=== PATIENT | male | born 1955 | race Caucasian/White ===

== ENCOUNTER 2023-04-16 11:03 | Emergency (ER) | payer OTHER ==
[~2023-04-16] VITALS: Ht 162.6 cm; Wt 68.2 kg
[2023-04-16 11:29] VITALS: BP 143/89
[2023-04-16] MEDS ORDERED: LIDOCAINE 1% HCL (LOCAL ANESTH.) INJ 20ML MDV ID ONE (11:45)
[2023-04-16] MEDS ORDERED: NEOMYCIN-BACITRACIN-POLYM UNITDOSE PKG TOP OINT TOP ONE (12:45)
[2023-04-16] MEDS ORDERED: IBUP-1454 PO (14:05)
[2023-04-16] MEDS ORDERED: CEPH250C PO (14:05)
[2023-04-16] MEDS ORDERED: HYDR-4902 PO (14:05)
== END 2023-04-16 14:11 | disposition home or self-care (01) ==
LOC: EDUNIT# 11:03 → ER 11:03 → EDBD 11:03 → ER 14:10
DX: S01.81XA Laceration without foreign body of other part of head, initial encounter (principal); W01.198A Fall on same level from slipping, tripping and stumbling with subsequent striking against other object, initial encounter; Y93.89 Activity, other specified; Y92.89 Other specified places as the place of occurrence of the external cause; Y99.8 Other external cause status
CPT/HCPCS: 12013; 70450; 99284; J2001

== ENCOUNTER 2025-04-24 19:12 | Emergency (ER) | payer OTHER ==
[~2025-04-24] VITALS: Ht 152.4 cm; Wt 56.8 kg
[~2025-04-24 19:12] MED LIST: CEPH250C PO; HYDR-4902 PO; IBUP-1454 PO
--- NOTE | 2025-04-24 19:55 | ED.PDOC ---
Back pain HPI HPI Comments 70-YEAR-OLD MALE PRESENTS TO THE ED WITH HIS [id number] WHO HE LIVES WITH C/C OF BACK PAIN X 1 MONTH. PT HAS PMH OF SCOLIOSIS AND STATES THE PAIN IS PREVENTING HIM FROM DOING DAILY ACITIVTIES. PATIENT STATES HISTORY OF KIDNEY DISEASE UNABLE TO TAKE NSAIDS. DENIES RECENT INJURY, SADDLE ANESTHESIA, WEAKNESS, NUMBNESS OR LOSS OF BOWEL AND BLADDER CONTROL Chief Complaint: Back Pain Time Seen by MD: 19:20 Reviewed Notes: Nurses Notes, Medications, Allergies Allergies: Coded Allergies: NO KNOWN ALLERGIES (Unverified , 04/16/23) Home Meds Active Scripts Acetaminophen (Acetaminophen Extra Stren) 500 Mg Tab, 500 MG PO Q6HP PRN for 10 Days, #40 TAB Prov:PRICILA NEELY [employer]PERINTENDENT [employer]OTIVE 04/24/25 Methylprednisolone (Medrol Dosepak) 4 Mg Stan, 4 MG PO UD for 6 Days, #21 TAB UAD Prov:PRICILA NEELY [employer]PERINTENDENT [employer] 04/24/25 Hydrocodone-Acetaminophen (Hydrocodone Bitartrate/AC 5-325 mg) 1 Tab Tab, 1 TAB PO Q6HP PRN for 7 Days, #28 TAB Prov:SANTINO LOVELACE PAC 04/16/23 Ibuprofen (Ibuprofen) 600 Mg Tab, 1 TAB PO QID, #30 TAB Prov:SANTINO LOVELACE PAC 04/16/23 Cephalexin (KEFLEX CAPSULE) 250 Mg Cp, 1 CAP PO QID for 7 Days, #28 CAP Prov:SANTINO LOVELACE PAC 04/16/23 Information Source: Patient, Friend Past Medical History PAST MEDICAL HISTORY: Denies Surgical History: Denies all surgeries Family History Family History: Reviewed,noncontributory to illness, No family hx of Cancer, No family hx of DM, No family hx of Heart shayla, No family hx of HTN, No family hx ofKidney shayla, No family hx of Liver shayla, No family hx of Lung shayla, No family hx of Stroke Social History Smoker: Non-Smoker Alcohol: Denies ETOH Use Drugs: Denies Drug Use Constitutional: denies: chills, diaphoresis, fatigue, fever, malaise, sweats, weakness, others EENTM: denies: blurred vision, double vision, ear bleeding, ear discharge, ear drainage, ear pain, ear ringing, eye pain, eye redness, hearing loss, mouth pain, mouth swelling, nasal discharge, nose bleeding, nose congestion, nose pain, photophobia, tearing, throat pain, throat swelling, voice changes, others Respiratory: denies: cough, hemoptysis, orthopnea, SOB at rest, shortness of breath, SOB with excertion, stridor, wheezing, others Cardiovascular: denies: chest pain, dizzy spells, diaphoresis, Dyspnea on exertion, edema, irregular heart beat, left arm pain, lightheadedness, palpitations, PND, syncope, others Gastrointestinal: denies: abdomen distended, abdominal pain, blood streaked bowels, constipated, diarrhea, dysphagia, difficulty swallowing, hematemesis, melena, nausea, poor appetite, poor fluid intake, rectal bleeding, rectal pain, vomiting, others Genitourinary: denies: burning, dysuria, flank pain, frequency, hematuria, incontinence, penile discharge, penile sore, pain, testicle pain, testicle swelling, urgency, others Neurological: denies: dizziness, fainting, headache, left sided numbness, left sided weakness, numbness, paresthesia, pre-existing deficit, right sided numbness, right sided weakness, seizure, speech problems, tingling, tremors, weakness, others Musculoskeletal: reports: back pain; denies: gout, joint pain, joint swelling, muscle pain, muscle stiffness, neck pain, others Integumetry: denies: bruises, change in color, change in hair/nails, dryness, laceration, lesions, lumps, rash, wounds, others Allergic/Immunocompromised: denies: Difficulty Healing, Frequent Infections, Hives, Itching, others Hematologic/Lymphatic: denies: anemia, blood clots, easy bleeding, easy bruising, swollen glands, others Endocrine: denies: excessive hunger, excessive sweating, excessive thirst, excessive urination, flushing, intolerance to cold, intolerance to heat, unexplained weight gain, unexplained weight loss, others Psychiatric: denies: anxiety, bipolar disorder, depression, hopeless, panic disorder, schizophrenia, sleepless, suicidal, others Physical Exam General Appearance: No Apparent Distress, Normal HEENT: Pharynx Normal, TMs Normal Neck: Full Range of Motion, Non-Tender Respiratory: Lungs Clear, No Respiratory Distress, Normal Breath Sounds Cardiovascular: No Murmur, Normal Peripheral Pulses, Regular Rate/Rhythm Breast Exam: Deferred Gastrointestinal: Non Tender, Soft Genitalia: Deferred Pelvic: Deferred Rectal: Deferred Extremities: Normal capillary refill, Normal inspection, Normal range of motion, Non-tender, No pedal edema Musculoskeletal : Location: Bilateral Extremity Location: Back (Moderate thoracic lumbar curvature noted scoliosis moderate tenderness bilateral lower back musculature. Negative straight leg raise bilateral strength sensory motion intact positive pedal pulses noted external obvious trauma) Apperance: Normal Neurologic: Alert, No Motor Deficits, Normal Affect, Normal Mood, No Sensory Deficits Cerebellar Function: Normal Reflexes: Normal Skin: Dry, Normal Color, Warm Lymphatic: No Adenopathy Was a procedure done? Was a procedure done?: No Back Pain Differential Dx Differential Diagnosis: Fracture, Musculoskeletal Pain X-Ray, Labs, Meds, VS Vital Signs Date Time Temp Pulse Resp B/P (MAP) Pulse Ox O2 Delivery O2 Flow Rate FiO2 04/24/25 19:30 97.3 89 18 90/55 (67) 100 97.3 X-Ray, Labs, Meds, VS Comment Patient given Decadron 10 mg IM and [place] 5 mg p.o. reports improvement in pain and function requesting discharge at this time. Script trial of Tylenol and Medrol Dosepak advised to take medications as prescribed side effects discussed. Advised to follow up with his PCP in 2 days consider referral for pain management for his chronic scoliosis. ER return precautions given patient indicates understanding and agrees with discharge plan of care. Time of 1ST Reevaluation: 19:20 Reevaluation 1ST: Unchanged Time of 2ND Reevaluation: 21:31 Reevaluation 2ND: Improved Patient Education/Counseling: Diagnosis, Treatment, Prognosis, Need For Follow Up Family Education/Counseling: Diagnosis, Treatment, Prognosis, Need For Follow Up SEPSIS Sepsis Screen Vital Signs Date Time Temp Pulse Resp B/P (MAP) Pulse Ox O2 Delivery O2 Flow Rate FiO2 04/24/25 19:30 97.3 89 18 90/55 (67) 100 97.3 Departure 1 Departure Time of Disposition: 20:45 Impression: Primary Impression: Lumbar sprain Qualified Codes: S33.5XXA - Sprain of ligaments of lumbar spine, initial encounter Additional Impression: Scoliosis Qualified Codes: M41.9 - Scoliosis, unspecified Disposition: 01 HOME / SELF CARE / HOMELESS Condition: Stable e-Prescriptions Acetaminophen (Acetaminophen Extra Stren) 500 Mg Tab 500 MG PO Q6HP PRN for 10 Days, #40 TAB Prov: PRICILA NEELY 04/24/25 Methylprednisolone (Medrol Dosepak) 4 Mg Stan 4 MG PO UD for 6 Days, #21 TAB UAD Prov: PRICILA NEELY 04/24/25 Discharged With: Friend Critical Care Note Critical Care Time?: No Stability Stability form required: No PRICILA NEELY Apr 24, 2025 19:55
[2025-04-24] MEDS ORDERED: METH4PAK PO (20:47)
[2025-04-24] MEDS ORDERED: ACET-6 PO (20:47)
[2025-04-24] MEDS: HYDROcodone-ACET 5/325MG TAB PO ONE (21:40)
[2025-04-24 21:45] VITALS: BP 94/57; PULSE 78; RESP 14; TEMP 96.9; O2SAT 100
== END 2025-04-24 21:50 | disposition home or self-care (01) ==
LOC: ER 19:12
DX: S33.5XXA Sprain of ligaments of lumbar spine, initial encounter (principal); M41.9 Scoliosis, unspecified; X58.XXXA Exposure to other specified factors, initial encounter; Y93.89 Activity, other specified; Y92.89 Other specified places as the place of occurrence of the external cause; Y99.8 Other external cause status
CPT/HCPCS: 96372; 99283; J1100

== ENCOUNTER 2025-04-29 17:54 | Inpatient (IN) | payer OTHER ==
[~2025-04-29] VITALS: Ht 162.6 cm; Wt 68.0 kg
[~2025-04-29 17:54] MED LIST changes: +ACET-6 PO; +METH4PAK PO
--- NOTE | 2025-04-29 19:08 | ED.PDOC ---
History of Present Illness HPI Comments HPI: 70 year old male brought in by brother in law presents to the ED with a chief complaint of generalized weakness onset 2 months. Brother in law states patient has been weak for the past 2 months, noticed cognitive decline. Brother in law also states patient is only taking pain medication, has a PMHx sclerosis. Last night patient was having a conversation with brother in law, increased concern for possible suicide. Patient and brother in law are poor historians. No other symptoms or modifying factors present at this time. Initial Vitals BP: 107/70 HR: 125 RR: 16 O2: 975 Temp: 97.9F Past Medical History:sclerosis Past Surgical History: Denies Social History: Denies ETOH, smoking, and drug use. Medications: pain medication Allergies: NKDA HPI: Poor Historian. REVIEW OF SYSTEMS: CONSTITUTIONAL: Denies acute: fever, diaphoresis, chills, HEAD: Denies acute: headache, photophobia Eyes: Denies acute: Double vision, vision loss, eye pain, eye discharge. EARS: Denies acute: tinnitus, hearing loss, ear discharge, ear pain, THROAT: Denies acute: sore throat, swelling, difficulty swallowing , pain with swallowing, change in voice. NECK: Denies acute: neck pain, neck swelling, stiff neck. HEART: Denies acute : chest pain, palpitations, LUNGS: Denies acute: SOB, wheezing, cough, hemoptysis ABDOMEN: Denies acute: abdominal pain, Nausea, Vomiting, diarrhea, melena , hematemesis, hematochezia SKIN: Denies acute: rash, redness, lesions, itchiness. EXTREMITIES: Denies acute: calf pain, numbness, tingling, weakness, denies pain in extremity. Denies acute: Low back pain. Neuro: Denies acute: focal neurological deficit, motor or sensory focal neurological deficit, tremors, seizure like activity, confusion, dizziness, change in mental status, loss of bowel or bladder function, cauda equina like symptoms. : Denies acute: dysuria, hematuria, flank pain, increase in urinary frequency. PSYCH: Denies acute: hallucination, suicidal ideation, homicidal ideation. PHYSICAL EXAM: General: ----no----acute distress, awake and alert. Head: normocephalic, atraumatic. Neck: supple, trachea is midline, no swelling. Throat: Normal phonation. Dry oral mucosa Eyes:, no erythema, no purulent discharge, no proptosis, no icterus. Heart: regular tachycardic, no significant murmur appreciated. Lungs: no apparent respiratory distress, No wheezing, no rhonchi, no crackles. No stridors Clear to auscultation bilaterally. Abdomen: non tender to palpation, non distended, soft, no guarding, no rebound, + bowel sounds. Neuro: Awake, Alert, oriented to name, self, situation, follows commands Speech is normal. Skin: no petechia, no purpura, no cyanosis, slight-pale, not jaundice. Lower extremities: --no - Pitting edema no deformity, no focal swelling, no calf TTP. Makes eye contact. moves all four extremities. Face: no apparent facial droop. ED COURSE: DISCLAIMER: This medical document was created using an electronic medical record system with voice recognition software and computerized dictation system. Although this document has been carefully reviewed, there might still be some phonetic and typographical errors. Occasional wrong-word or "sound-alike" substitutions may have occurred due to the inherent limitations of voice recognition software. These areas are purely typographical due to imperfections of the software programs and do not reflect any compromise in the patient's medical care. Please read the chart carefully and recognize, using context, where these substitutions have occurred. Chief Complaint: General Weakness Time Seen by MD: 18:30 Primary Care Provider: RENATA Reviewed Notes: Medications, Allergies Allergies: Coded Allergies: NO KNOWN ALLERGIES (Unverified , 04/16/23) Home Meds Active Scripts Levetiracetam (KEPPRA TABLET) 500 Mg Tb, 500 MG PO BID for 30 Days, #60 TAB Prov:ANEESH SÁNCHEZ MD 05/07/25 Atorvastatin Calcium (Lipitor) 40 Mg Tab, 1 TAB PO QPM, #90 TAB 1 Refill Prov:ANEESH SÁNCHEZ MD 05/07/25 Aspirin (Aspir-Low) 81 Mg Tab, 81 MG PO DAILY for 30 Days, #30 TAB Prov:ANEESH SÁNCHEZ MD 05/07/25 Clindamycin Hcl (Clindamycin Hcl) 300 Mg Cap, 1 CAP PO TID, #30 CAP Prov:ANEESH SÁNCHEZ MD 05/07/25 Hydrocodone-Acetaminophen (Hydrocodone Bitartrate/AC 5-325 mg) 1 Tab Tab, 1 TAB PO Q6HP PRN for 7 Days, #28 TAB Prov:SANTINO LOVELACE PAC 04/16/23 Discontinued Scripts Ibuprofen (Ibuprofen) 600 Mg Tab, 1 TAB PO QID, #30 TAB Prov:SANTINO LOVELACE PAC 04/16/23 Cephalexin (KEFLEX CAPSULE) 250 Mg Cp, 1 CAP PO QID for 7 Days, #28 CAP Prov:SANTINO LOVELACE PAC 04/16/23 Acetaminophen (Acetaminophen Extra Stren) 500 Mg Tab, 500 MG PO Q6HP PRN for 10 Days, #40 TAB Prov:PRICILA NEELY 04/24/25 Information Source: Patient, Relative Mode of Arrival: Wheelchair Severity: Moderate Timing: Months Duration: Since onset Prehospital treatment: Pain Meds Past Medical History Past Medical History (Other): MS Surgical History: Denies all surgeries Family History Family History: Reviewed,noncontributory to illness, No family hx of Cancer, No family hx of DM, No family hx of Heart shayla, No family hx of HTN, No family hx ofKidney shayla, No family hx of Liver shayla, No family hx of Lung shayla, No family hx of Stroke Social History Smoker: Non-Smoker Alcohol: Denies ETOH Use Drugs: Denies Drug Use Lives In: Home Was a procedure done? Was a procedure done?: No Differential Dx Considerations may include: Includes but not limited to thyroid disease, encephalopathy, electrolyte abnormality, sepsis, infection, intracranial pathology, drug adverse effects, arrhythmia, kidney insufficiency, ACS, CVA, malignancy, anemia X-Ray, Labs, Meds, VS Vital Signs Date Time Temp Pulse Resp B/P (MAP) Pulse Ox O2 Delivery O2 Flow Rate FiO2 04/29/25 18:20 97.9 125 16 107/70 (82) 97 97.9 Lab Test 04/29/25 21:02 04/29/25 20:29 04/29/25 19:25 04/29/25 18:18 Range/Units Blood Gas Specimen Type Arterial Blood Gas Sample Site Left radial Blood Gas Patient Temperature 37.0 Arterial Blood Date Drawn Arterial Blood pH 7.237 *L 7.350-7.450 Arterial Blood Partial Pressure CO2 17.7 *L 35.0-48.0 mmHg Arterial Blood Partial Pressure O2 93.2 83.0-108.0 mmHg Arterial Blood HCO3 7.4 L 21.0-28.0 mmol/L Arterial Blood Oxygen Saturation 95.1 94.0-98.0 % Arterial Blood Base Excess -18.2 L -2.0-3.0 mmol/L Arterial Blood Oxyhemoglobin 94.0 94.0-98.0 % Arterial Blood Carboxyhemoglobin 1.0 0.5-1.5 % Arterial Blood Methemoglobin 0.2 0.0-1.5 % Forest Test Yes Blood Gas Total Hemoglobin 8.30 L 13.5-17.5 g/dL Blood Gas Modality Room air Blood Gas Spontaneous Rate 24 FiO2 % 21.0 Blood Gas Critical Value Read Back Yes Blood Gas Notified Whom fernando Turk md Blood Gas Notified Time Blood Gas Notified By Troponin I High Sensitivity 32 36 </=54 ng/L White Blood Count 11.3 H 4.4-10.8 10^3/uL Red Blood Count 2.71 L 4.5-5.90 10^6/uL Hemoglobin 8.1 L 13.5-17.5 g/dL Hematocrit 24.1 L 41.0-53.0 % Mean Corpuscular Volume 89.0 80.0-100.0 fL Mean Corpuscular Hemoglobin 30.0 28.0-32.0 pg Mean Corpuscular Hemoglobin Concent 33.7 32.0-36.0 g/dL Red Cell Distribution Width 14.0 11.8-14.3 % Platelet Count 155 140-450 10^3/uL Mean Platelet Volume 10.2 6.9-10.8 fL Neutrophils (%) (Auto) 87.9 H 37.0-80.0 % Lymphocytes (%) (Auto) 6.1 L 10.0-50.0 % Monocytes (%) (Auto) 4.7 0.0-12.0 % Eosinophils (%) (Auto) 1.0 0.0-7.0 % Basophils (%) (Auto) 0.3 0.0-2.0 % Neutrophils # (Auto) 10.0 H 1.6-8.6 10 ^3/uL Lymphocytes # (Auto) 0.7 0.4-5.4 10 ^3/uL Monocytes # (Auto) 0.5 0-1.3 10 ^3/uL Eosinophils # (Auto) 0.1 0-0.8 10 ^3/uL Basophils # (Auto) 0 0-0.2 10 ^3/uL Nucleated Red Blood Cells 0.0 % Prothrombin Time 10.9 9.3-11.8 sec Prothrombin Time INR 1.03 0.9-1.15 Sodium Level 139 136-145 mmol/L Potassium Level 4.2 3.5-5.1 mmol/L Chloride Level 106 98-107 mmol/L Carbon Dioxide Level < 10 *L 20-31 mmol/L Anion Gap 23.25081 H 5-15 Blood Urea Nitrogen 157 *H 9-23 mg/dL Creatinine 12.33 *H 0.700-1.30 mg/dL Glomerular Filtration Rate Calc 4 >90 mL/min BUN/Creatinine Ratio 12.7 10.0-20.0 Serum Glucose 108 H 74-106 mg/dL Lactic Acid Level 1.1 0.4-2.0 mmol/L Calcium Level 5.5 *L 8.7-10.4 mg/dL Magnesium Level 1.3 L 1.6-2.6 mg/dL Total Bilirubin 0.2 0.2-1.0 mg/dL Aspartate Amino Transferase (AST) 15 13-40 U/L Alanine Aminotransferase (ALT) < 9 7-40 U/L Alkaline Phosphatase 63 46-116 U/L Total Protein 6.9 5.7-8.2 g/dL Albumin 4.5 3.2-4.8 g/dL Lipase 379 H 12-53 U/L Plasma/Serum Blood Alcohol < 3.0 <10 mg/dL Urine Color Colorless Yellow Urine Clarity Turbid H Clear Urine pH 5.5 5.0-9.0 Urine Specific [place] 1.012 1.001-1.035 Urine Protein 1+ H Negative Urine Ketones Negative Negative Urine Blood 1+ H Negative /uL Urine Nitrite Negative Negative Urine Bilirubin Negative Negative Urine Urobilinogen Normal Negative mg/dL Urine Leukocyte Esterase Negative Negative /uL Urine RBC 1 0 - 3 /hpf Urine WBC Clumps Present None Seen /hpf Urine Microscopic WBC 10 H 0-3 /HPF Urine Squamous Epithelial Cells Few <5 /hpf Urine Amorphous Crystals Mod None Seen /hpf Urine Bacteria Few H None Seen /hpf Urine Glucose Normal Normal mg/dL Test 04/29/25 18:16 Range/Units POC Glucose 120 H 70-106 mg/dl [facility] [id number] [facility] [id number] Ph: [phone] DIAGNOSTIC IMAGING Diagnostic Imaging Report : [id number] Signed PATIENT: ALEXANDRU HICKS ACCT: [id number] UNIT: [id number] : 1955 LOC: ER ROOM / BED: / AGE / SEX: 70 / M ADM STATUS: REG ER SERVICE 00 ORDERING PHYSICIAN: ANNE BARKSDALE DO PROCEDURE(s): CXRP - CHEST PORTABLE REASON: weak ORDER NUMBER(s): [id number], ACCESSION NUMBER(s): [id number] CHEST RADIOGRAPH Indication: weak Technique: Single frontal view of the chest was obtained Comparison: None FINDINGS: Lines and Tubes: None Lungs: Perihilar vascular prominence may be due to the scoliosis. There are no prior studies for comparison Pleura: No effusion. No pneumothorax. Cardiomediastinal contours: Cardiac size appears normal Bones: Severe dextroscoliosis of the thoracic spine IMPRESSION: 1. Prominent right perihilar markings. This maybe secondary to the severe scoliosis. There are no prior studies for comparison. ATED BY: ANTHONY ROBERTSON Jr., DO DICTATED DATE/TIME: 04/29/252026 SIGNED BY: ANTHONY ROBERTSON Jr., SIGNED DATE/TIME: 04/29/252026 CC: Time of 1ST Reevaluation: 20:56 (The case was discussed with the admitting team (HPI, physical exam, labs and diagnostic tests that were available at the time of disposition, ED course, treatment plan) on the phone. They agreed to admit the patient to their service and assume care of this patient from this point forward. --- timi) Reevaluation 1ST: N/A Patient Education/Counseling: Other Family Education/Counseling: Other Comments MDM: patient presented with the above HPI.--generalized weakness----workup was initiated. patient was found with the above mentioned diagnosis. the following medications were ordered: please refer to order lists of meds and tests obtained by myself Dr. Barksdale. Patient ED course and VS have been stabilized. Patient has been reassessed in the ED and remained in a stable condition. Patient has been observed in the ED adequate length of time to insure improvement/stability. Escalation of care considered: Consideration of escalation to observation or admission Nephrology was consulted, calcium replacement, magnesium replacement, social service manager were consulted, tele psych was consulted. Patient was ADMITTED to the medicine team for further evaluation and treatment of their presentation. All the reports of any imaging studies that were ordered by myself were reviewed by myself. Departure 1 Departure Time of Disposition: 19:56 Impression: Primary Impression: Symptomatic anemia Additional Impressions: Generalized weakness Acute renal failure Qualified Codes: N17.9 - Acute kidney failure, unspecified Hypomagnesemia Hypocalcemia Sinus tachycardia Disposition: ADMITTED INPATIENT Admit to: Tele Condition: Guarded e-Prescriptions Levetiracetam (KEPPRA TABLET) 500 Mg Tb 500 MG PO BID for 30 Days, #60 TAB Prov: ANEESH SÁNCHEZ MD 05/07/25 Atorvastatin Calcium (Lipitor) 40 Mg Tab 1 TAB PO QPM, #90 TAB 1 Refill Prov: ANEESH SÁNCHEZ MD 05/07/25 Aspirin (Aspir-Low) 81 Mg Tab 81 MG PO DAILY for 30 Days, #30 TAB Prov: ANEESH SÁNCHEZ MD 05/07/25 Clindamycin Hcl (Clindamycin Hcl) 300 Mg Cap 1 CAP PO TID, #30 CAP Prov: ANEESH SÁNCHEZ MD 05/07/25 Discharged With: Self Critical Care Note Critical Care Time?: Yes (1 hr-critical care time only) Heart Score Heart Score: Heart Score Response (Comments) Value History N/A 0 EKG N/A 0 Age N/A 0 Risk Factors N/A 0 Troponin N/A 0 Total 0 I personally scribed for ANNE BARKSDALE DO ([email or web address]) on 04/29/25 at 19:08. Electronically submitted by Kellen Toledo ([email or web address]). I personally scribed for ANNE BARKSDALE DO ([email or web address]) on 04/29/25 at 20:35. Electronically submitted by Kellen Toledo ([email or web address]). I personally scribed for ANNE BARKSDALE DO ([email or web address]) on 04/29/25 at 21:50. Electronically submitted by Kellen Toledo ([email or web address]). ANNE BARKSDALE DO Apr 29, 2025 19:08
[2025-04-29 19:45] LABS: Hematocrit 24.1 % (41.0-53.0); Hemoglobin 8.1 g/dL (13.5-17.5); Mean Corpuscular Hemoglobin 30.0 pg (28.0-32.0); Mean Corpuscular Volume 89.0 fL (80.0-100.0); Nucleated Red Blood Cells % 0.0 %
[2025-04-29 20:02] LABS: Albumin 4.5 g/dL (3.2-4.8); Alkaline Phosphatase 63 U/L (46-116); Anion Gap 23.00001 (5-15); Chloride 106 mmol/L (98-107); Potassium 4.2 mmol/L (3.5-5.1); Sodium 139 mmol/L (136-145); Total Protein 6.9 g/dL (5.7-8.2)
[2025-04-29 20:10] LABS: Alanine Aminotransferase < 9 U/L (7-40); BUN/Creatinine Ratio 12.7 (10.0-20.0); Bilirubin, Total 0.2 mg/dL (0.2-1.0); Glucose 108 mg/dL (74-106); Magnesium 1.3 mg/dL (1.6-2.6)
[2025-04-29 20:12] LABS: Blood Urea Nitrogen 157 mg/dL (9-23); Calcium 5.5 mg/dL (8.7-10.4); Carbon Dioxide < 10 mmol/L (20-31)
--- NOTE | 2025-04-29 20:30 | DVH ---
CHEST RADIOGRAPH Indication: weak Technique: Single frontal view of the chest was obtained Comparison: None FINDINGS: Lines and Tubes: None Lungs: Perihilar vascular prominence may be due to the scoliosis. There are no prior studies for comp arison Pleura: No effusion. No pneumothorax. Cardiomediastinal contours: Cardiac size appears normal Bones: Severe dextroscoliosis of the thoracic spine IMPRESSION: 1. Prominent right perihilar markings. This maybe secondary to the severe scoliosis. There are no pr ior studies for comparison.
[2025-04-29 20:58] LABS: Urine Amorphous Crystal MOD /hpf (None Seen); Urine Protein, UAD 1+ (Negative); Urine WBC Clumps PRESENT /hpf (None Seen)
[2025-04-29] MEDS: CALCIUM GLUC 1,000mg/50ml-NS 50 ML IV ONE (21:04)
[2025-04-29] MEDS: SODIUM CHLORIDE 0.9% 1,000 ML IV ONE ×2 (21:04→21:06)
[2025-04-29] MEDS: SODIUM BICARB 8.4% 50Meq/50ml SYR Vial IV ONE ×2 (21:04→21:06)
[2025-04-29] MEDS: MAGNESIUM SULFATE 1GM/100ML 100 ML IV ONE (21:04)
[2025-04-29 21:19] LABS: Base Excess -18.2 mmol/L (-2.0-3.0)
[2025-04-29] MEDS: SODIUM BICARB 50mEq/50ml Vial 150 ML in D5W 5% 1,000 ML IV ONE (21:41)
[2025-04-29] MEDS ORDERED: NITROGLYCERIN 0.4 MG SL TAB SL PRN (21:45)
[2025-04-29 22:00] VITALS: RESP 16; O2SAT 98
[2025-04-29 22:34] LABS: INR 1.03 (0.9-1.15); Prothrombin Time 10.9 sec (9.3-11.8)
[2025-04-29] MEDS: SOD CHL 0.45% 1,000 ML IV SCH (22:44)
--- NOTE | 2025-04-29 23:00 | DVH ---
History: BRIAN, weakness Comparison Study: None TECHNIQUE: Multidetector CT of the chest, abdomen and pelvis was performed from lower neck to pubic s ymphysis without the use of intravenous contrast. Axial, coronal and sagittal multiplanar reformats w ere performed by the technologist on a separate workstation. Radiation Dose Information: CT Dose: CTDI volume is 6.54 mGy. Dose-length product is 455.82 mGy*cm FINDINGS: Lower neck: Normal thyroid. Lungs: No focal consolidation, suspicious pulmonary nodules or pulmonary masses. Heart/Vascular Structures: Normal heart size. Lymph Nodes: No adenopathy. Pleura: No pleural effusion or significant pneumothorax. Liver: The liver is normal in size. Non-contrast appearance of liver. Gallbladder and Biliary Tree: Calcified gallstones Spleen: Unremarkable. Pancreas: Unremarkable. Adrenal Glands: Unremarkable. Kidneys: Punctate calculus noted centrally in the right kidney with no hydronephrosis. Bladder: Muller catheter in place. Bowel: No bowel wall thickening or dilatation. The appendix is not visualized; however, no secondary findings of acute appendicitis identified. Peritoneum: No ascites or pneumoperitoneum. Lymphadenopathy: No enlarged lymph nodes. Vasculature: The visualized abdominal aorta is normal in size and caliber. Evaluation of the vascular structures is limited due to lack of intravenous contrast. Pelvic Organs: Unremarkable. Musculoskeletal: Severe dextroscoliosis wih volume changes in the lung clark bilaterally. Lung volum es are abnormal reflecting the degree of scoliosis and compression of aerated lung on associated late rality. Soft tissues: Unremarkable. IMPRESSION: 1. Dextroscoliosis with varying degrees of atelectasis bilaterally as a sequela of the scoliosis. 2. No pleural effusions 3. No areas of significant pulmonary consolidation. 4. Dextroscoliosis of the thoracic spine with compensatory levoscoliosis of the lumbar spine. Severe kyphosis of the upper thoracic spine. No visualized vertebral gibbus deformity any vertebral body o r severe compression of a vertebral body anteriorly. 5. Punctate calculus right kidney no hydronephrosis. 6. Multiple small gallstones. Can not entirely exclude pancreatitis since areas motion artifact while scanning through the area of the pancreas. All CT scans at this medical facility are performed using dose modulation techniques as appropriate t o a performed exam including the following: Automated exposure control was utilized; adjustment of th e MA and/or KV according to patient size; and use of iterative reconstruction technique.
--- NOTE | 2025-04-29 23:33 | DVH ---
INDICATION: BRIAN TECHNIQUE: Multiple real-time sonographic images of the kidneys and bladder were obtained. COMPARISON: None FINDINGS: RIGHT kidney measures 8.5 cm in length with echogenic renal parenchyma and diminished cortical thickn ess. No evidence of nephrolithiasis or hydronephrosis. LEFT kidney measures 9.5 cm in length with echogenic renal parenchyma and diminished cortical thickne ss. Anechoic simple appearing pelvic cyst measures 2.5 x 2.3 x 2.1 cm. No evidence of nephrolithiasis or hydronephrosis. The urinary bladder is contracted, containing a Muller catheter. No large intraluminal masses are seen in the bladder. Post void residual not assessed. IMPRESSION: 1. Increased bilateral renal parenchymal echotexture and diminished cortical thickness. 2. Simple appearing left renal pelvic cyst. 3. Muller catheter within decompressed bladder.
[2025-04-30] VITALS (50 sets, daily range): BP systolic 88–111; BP diastolic 40–64; PULSE 51–77; RESP 10–30; TEMP 97.5–98.1; O2SAT 92–100
[2025-04-30 03:33] LABS: Amphetamine Screen, Urine Neg (NEGATIVE); Barbiturate Scree,Urine Neg (NEGATIVE); Opiate Scree,Urine Neg (NEGATIVE); Phencyclidine Screen, Urine Neg (NEGATIVE)
[2025-04-30 03:34] LABS: Benzodiazephine Screen, Urine Neg (NEGATIVE); Cannabinoid Screen, Urine Neg (NEGATIVE); Cocaine Screen, Urine Neg (NEGATIVE)
[2025-04-30] MEDS: NOREPINEPHRINE 8 MG/250ML KIT 250 ML IV ONE (04:03)
[2025-04-30] MEDS: NOREPINEPHRINE 8 MG/250ML KIT 250 ML IV SCH (04:12)
[2025-04-30 06:06] LABS: Hematocrit 19.3 % (41.0-53.0); Mean Corpuscular Hemoglobin 30.5 pg (28.0-32.0); Mean Corpuscular Volume 87.5 fL (80.0-100.0); Nucleated Red Blood Cells % 0.0 %
[2025-04-30 06:08] LABS: Hemoglobin 6.7 g/dL (13.5-17.5)
[2025-04-30 06:15] LABS: Albumin 3.6 g/dL (3.2-4.8); Alkaline Phosphatase 50 U/L (46-116); Anion Gap 24 (5-15); Glucose 100 mg/dL (74-106)
[2025-04-30 06:23] LABS: BUN/Creatinine Ratio 13.1 (10.0-20.0)
[2025-04-30 06:25] LABS: Alanine Aminotransferase < 9 U/L (7-40); Bilirubin, Total 0.2 mg/dL (0.2-1.0); Carbon Dioxide 14 mmol/L (20-31); Chloride 108 mmol/L (98-107); Potassium 3.1 mmol/L (3.5-5.1); Sodium 146 mmol/L (136-145); Total Protein 5.6 g/dL (5.7-8.2)
[2025-04-30 06:27] LABS: Blood Urea Nitrogen 151 mg/dL (9-23); Calcium 5.1 mg/dL (8.7-10.4)
[2025-04-30] MEDS: CALCIUM GLUC 1,000mg/50ml-NS 50 ML IV ONE (08:15)
--- NOTE | 2025-04-30 11:21 | DVHHP2 ---
Admitting Diagnosis: BRIAN Metabolic acidosis History of Present Illness HPI 70 y.o. male with unclear PMH was brought to the ER c/o generalized weakness for 2 month with changed mentation. His yaajcna-xv-nty stated the patient expressed suicidal thoughts. ER MD ordered psychiatry evaluation and social media marketing analyst consult due to that. Patient is a poor historian but he refused having suicidal ideation. Patient was found to have high BUN and Cr. Patient is not on HD. Low calcium level and he had hypotension and Levophed was added to the medication list for SBP below 90. Home Meds Active Scripts Acetaminophen (Acetaminophen Extra Stren) 500 Mg Tab, 500 MG PO Q6HP PRN for 10 Days, #40 TAB Prov:CHINLAZARO CubaK TIRE FABRIC IMPREGNATING RANGE TENDER 04/24/25 Methylprednisolone (Medrol Dosepak) 4 Mg Stan, 4 MG PO UD for 6 Days, #21 TAB UAD Prov:PRICILA NEELY TIRE FABRIC IMPREGNATING RANGE TENDER 04/24/25 Hydrocodone-Acetaminophen (Hydrocodone Bitartrate/AC 5-325 mg) 1 Tab Tab, 1 TAB PO Q6HP PRN for 7 Days, #28 TAB Prov:SANTINO LOVELACE PAC 04/16/23 Ibuprofen (Ibuprofen) 600 Mg Tab, 1 TAB PO QID, #30 TAB Prov:SANTINO LOVELACE PAC 04/16/23 Cephalexin (KEFLEX CAPSULE) 250 Mg Cp, 1 CAP PO QID for 7 Days, #28 CAP Prov:SANTINO LOVELACE PAC 04/16/23 Past Medical History Musculoskeletal: Other (severe scoliosis) Patient Family History: Patient reports no known family medical history. Review of Systems Constitutional: Weakness H&P Exam Vital Signs Vital Signs Date Time Temp Pulse Resp B/P (MAP) Pulse Ox O2 Delivery O2 Flow Rate FiO2 04/30/25 10:15 51 15 100/52 (68) 96 04/30/25 07:45 97.5 97.5 04/30/25 00:55 Room Air* 0 21 General Appeara: Mild distress Head Exam: Normal inspection Neck Exam: Non-tender Eye Exam: bilateral eye PERRL, bilateral eye EOMI Pulmonary/Respiratory: Lungs clear Cardiovascular/Chest: Regular rate Abdominal Exam: No tenderness Back Exam: Other (scoliosis) Neuro/Mental St: Alert, Disoriented SEPSIS Sepsis Screen Date sepsis recognized/suspect: Apr 30, 2025 Time Sepsis recognized/suspect: 0628 Recent Procedure: No On Antibiotic Therapy: No Respiratory Rate >20: No Heart Rate >90: Yes Temp<36 C (96.8 F) or >38.3 C: No SBP <90 or MAP <65 mmHG: No New Acute Mental Status Change: No Is the patient on CPAP, BIPAP,: No Physician Orders Norepinephrine 8 Mg/250ml Kit (Levophed) (04/30/25 04:00) Strict I & O QSHIFT (04/30/25 07:51) Strict I&O (04/30/25 ) Potassium Chl 20meq/100ml (04/30/25 08:00) Brain Head Wo Contrast (04/30/25 10:44) Echo 2d Mode Cardiac Dop (04/30/25 10:46) *Consult Dr.Mukeshchandra Chaves (04/30/25 10:46) Vital Signs Date Time Temp Pulse Resp B/P (MAP) Pulse Ox O2 Delivery O2 Flow Rate FiO2 04/30/25 10:15 51 15 100/52 (68) 96 04/30/25 10:00 60 18 93/48 (63) 97 04/30/25 09:45 71 19 104/44 (64) 97 04/30/25 09:30 62 12 98/48 (65) 96 04/30/25 09:15 63 16 103/50 (67) 97 04/30/25 09:00 77 23 97/51 (66) 98 04/30/25 08:45 66 17 96/52 (67) 97 04/30/25 08:30 71 10 89/50 (63) 96 04/30/25 08:15 65 17 94/50 (65) 96 04/30/25 08:00 64 15 97/47 (64) 96 04/30/25 07:45 97.5 71 19 98/52 (67) 100 97.5 04/30/25 07:30 72 19 95/49 (64) 96 04/30/25 07:15 66 17 95/53 (67) 98 04/30/25 07:00 65 17 91/49 (63) 98 04/30/25 07:00 91/49 04/30/25 07:00 66 16 91/49 (63) 97 04/30/25 06:45 66 17 96/49 (65) 97 04/30/25 06:30 71 11 93/49 (64) 97 04/30/25 06:15 67 16 95/51 (66) 97 04/30/25 06:00 66 17 93/48 (63) 98 04/30/25 06:00 93/48 04/30/25 05:45 75 20 103/53 (70) 97 04/30/25 05:30 97/46 04/30/25 05:30 73 20 98/55 (69) 96 04/30/25 05:15 73 20 98/55 (69) 96 04/30/25 05:00 98/55 04/30/25 05:00 77 20 98/54 (69) 96 04/30/25 04:45 98/54 04/30/25 04:45 76 12 98/54 (69) 97 04/30/25 04:40 89/48 04/30/25 04:30 73 12 93/49 (64) 97 04/30/25 04:15 76 17 88/52 (64) 97 04/30/25 04:12 90/53 04/30/25 04:00 75 18 90/53 (65) 97 04/30/25 04:00 96 04/30/25 03:45 78 23 89/50 (63) 97 04/30/25 03:30 69 18 86/50 (62) 98 04/30/25 03:15 75 20 93/52 (66) 99 Laboratory Tests Test 04/30/25 04:57 White Blood Count 10.8 10^3/uL (4.4-10.8) Medications Medications Dose Ordered Sig/Breanne Route Start Time Stop Time Status Last Admin Dose Admin Calcium Gluconate/ Sodium Chloride 50 ml @ 100 mls/hr ONCE ONCE IV 04/30/25 07:15 04/30/25 07:44 DC 04/30/25 08:15 100 MLS/HR Norepinephrine Bitartrate 250 ml @ 3.75 mls/hr Q24H IV 04/30/25 04:00 04/30/25 04:12 3.75 MLS/HR Labs/Xrays Labs Test 04/30/25 04:57 04/29/25 23:59 04/29/25 22:30 04/29/25 21:02 Range/Units White Blood Count 10.8 4.4-10.8 10^3/uL Red Blood Count 2.21 L 4.5-5.90 10^6/uL Hemoglobin 6.7 #*L 13.5-17.5 g/dL Hematocrit 19.3 #L 41.0-53.0 % Mean Corpuscular Volume 87.5 80.0-100.0 fL Mean Corpuscular Hemoglobin 30.5 28.0-32.0 pg Mean Corpuscular Hemoglobin Concent 34.9 32.0-36.0 g/dL Red Cell Distribution Width 13.7 11.8-14.3 % Platelet Count 143 140-450 10^3/uL Mean Platelet Volume 10.3 6.9-10.8 fL Neutrophils (%) (Auto) 88.9 H 37.0-80.0 % Lymphocytes (%) (Auto) 4.0 L 10.0-50.0 % Monocytes (%) (Auto) 6.1 0.0-12.0 % Eosinophils (%) (Auto) 0.7 0.0-7.0 % Basophils (%) (Auto) 0.3 0.0-2.0 % Neutrophils # (Auto) 9.6 H 1.6-8.6 10 ^3/uL Lymphocytes # (Auto) 0.4 0.4-5.4 10 ^3/uL Monocytes # (Auto) 0.7 0-1.3 10 ^3/uL Eosinophils # (Auto) 0.1 0-0.8 10 ^3/uL Basophils # (Auto) 0 0-0.2 10 ^3/uL Nucleated Red Blood Cells 0.0 % Sodium Level 146 #H 136-145 mmol/L Potassium Level 3.1 L 3.5-5.1 mmol/L Chloride Level 108 H 98-107 mmol/L Carbon Dioxide Level 14 L 20-31 mmol/L Anion Gap 24 H 5-15 Blood Urea Nitrogen 151 *H 9-23 mg/dL Creatinine 11.53 *H 0.700-1.30 mg/dL Glomerular Filtration Rate Calc 4 >90 mL/min BUN/Creatinine Ratio 13.1 10.0-20.0 Serum Glucose 100 74-106 mg/dL Calcium Level 5.1 *L 8.7-10.4 mg/dL Total Bilirubin 0.2 0.2-1.0 mg/dL Aspartate Amino Transferase (AST) 16 13-40 U/L Alanine Aminotransferase (ALT) < 9 7-40 U/L Alkaline Phosphatase 50 46-116 U/L Total Protein 5.6 L 5.7-8.2 g/dL Albumin 3.6 3.2-4.8 g/dL Urine Opiates Screen Neg NEGATIVE Urine Fentanyl Screen Neg NEGATIVE Urine Barbiturates Screen Neg NEGATIVE Urine Phencyclidine Screen Neg NEGATIVE Urine Amphetamines Screen Neg NEGATIVE Urine Benzodiazepines Screen Neg NEGATIVE Urine Cocaine Screen Neg NEGATIVE Urine Cannabinoids Screen Neg NEGATIVE Troponin I High Sensitivity 28 </=54 ng/L Blood Gas Specimen Type Arterial Blood Gas Sample Site Left radial Blood Gas Patient Temperature 37.0 Arterial Blood Date Drawn [id number] Arterial Blood pH 7.237 *L 7.350-7.450 Arterial Blood Partial Pressure CO2 17.7 *L 35.0-48.0 mmHg Arterial Blood Partial Pressure O2 93.2 83.0-108.0 mmHg Arterial Blood HCO3 7.4 L 21.0-28.0 mmol/L Arterial Blood Oxygen Saturation 95.1 94.0-98.0 % Arterial Blood Base Excess -18.2 L -2.0-3.0 mmol/L Arterial Blood Oxyhemoglobin 94.0 94.0-98.0 % Arterial Blood Carboxyhemoglobin 1.0 0.5-1.5 % Arterial Blood Methemoglobin 0.2 0.0-1.5 % Forest Test Yes Blood Gas Total Hemoglobin 8.30 L 13.5-17.5 g/dL Blood Gas Modality Room air Blood Gas Spontaneous Rate 24 FiO2 % 21.0 Blood Gas Critical Value Read Back Yes Blood Gas Notified Whom fernando Turk md Blood Gas Notified Time [id number] Blood Gas Notified By Test 04/29/25 19:25 04/29/25 18:18 04/29/25 18:16 Range/Units Prothrombin Time 10.9 9.3-11.8 sec Prothrombin Time INR 1.03 0.9-1.15 Lactic Acid Level 1.1 0.4-2.0 mmol/L Magnesium Level 1.3 L 1.6-2.6 mg/dL Lipase 379 H 12-53 U/L Plasma/Serum Blood Alcohol < 3.0 <10 mg/dL Urine Color Colorless Yellow Urine Clarity Turbid H Clear Urine pH 5.5 5.0-9.0 Urine Specific [place] 1.012 1.001-1.035 Urine Protein 1+ H Negative Urine Ketones Negative Negative Urine Blood 1+ H Negative /uL Urine Nitrite Negative Negative Urine Bilirubin Negative Negative Urine Urobilinogen Normal Negative mg/dL Urine Leukocyte Esterase Negative Negative /uL Urine RBC 1 0 - 3 /hpf Urine WBC Clumps Present None Seen /hpf Urine Microscopic WBC 10 H 0-3 /HPF Urine Squamous Epithelial Cells Few <5 /hpf Urine Amorphous Crystals Mod None Seen /hpf Urine Bacteria Few H None Seen /hpf Urine Glucose Normal Normal mg/dL POC Glucose 120 H 70-106 mg/dl Assessment/Plan Problem List: (1) Metabolic acidosis (2) Acute renal failure (3) Hypocalcemia (4) Scoliosis Plan discussed with: Patient YESENIA PARK MD Apr 30, 2025 11:21
[2025-04-30 11:39] LABS: Base Excess -9.5 mmol/L (-2.0-3.0)
--- NOTE | 2025-04-30 11:56 | DVHINCON2 ---
Date of service: Apr 30, 2025 Referring Physician Reason for Consultation BRIAN History of Present Illness 70 years old male with unknown exact past medical history other than scoliosis presented with chief complaints of back pain and generalized weakness,, he is somewhat a poor historian however answers questions Denies having any medical problems Patient seen and examined in emergency room with RN and hospitalist bedside Overnight patient received IV bicarb, bicarb drip for acidosis, Muller catheter has been placed and approximately 1700 cc urine output has been noted in Muller currently He is also on Levophed Past Medical History As per HPI Past Surgical History Unknown exactly Allergies: Coded Allergies: NO KNOWN ALLERGIES (Unverified , 04/16/23) Home Meds Active Scripts Acetaminophen (Acetaminophen Extra Stren) 500 Mg Tab, 500 MG PO Q6HP PRN for 10 Days, #40 TAB Prov:PRICILA NEELY FIELD OPERATIONS FARM MANAGER 04/24/25 Methylprednisolone (Medrol Dosepak) 4 Mg Stan, 4 MG PO UD for 6 Days, #21 TAB UAD Prov:PRICILA NEELY FIELD OPERATIONS FARM MANAGER 04/24/25 Hydrocodone-Acetaminophen (Hydrocodone Bitartrate/AC 5-325 mg) 1 Tab Tab, 1 TAB PO Q6HP PRN for 7 Days, #28 TAB Prov:SANTINO LOVELACE PAC 04/16/23 Ibuprofen (Ibuprofen) 600 Mg Tab, 1 TAB PO QID, #30 TAB Prov:SANTINO LOVELACE PAC 04/16/23 Cephalexin (KEFLEX CAPSULE) 250 Mg Cp, 1 CAP PO QID for 7 Days, #28 CAP Prov:SANTINO LOVELACE PAC 04/16/23 Current Medications Current Medications Medications (Trade) Dose Ordered Sig/Breanne Route PRN Reason Start Time Stop Time Status Last Admin Nitroglycerin (Ntrostat Sublingual) 0.4 mg Q5MINP PRN SL FOR CHEST PAIN 04/29/25 21:45 Morphine Sulfate 2 mg Q30M PRN IV FOR CHEST PAIN 04/29/25 21:45 Sodium Chloride 1,000 ml @ 100 mls/hr Q10H IV 04/29/25 22:00 04/30/25 11:01 Norepinephrine Bitartrate 250 ml @ 3.75 mls/hr Q24H IV 04/30/25 04:00 04/30/25 04:12 Potassium Chloride 100 ml @ 50 mls/hr Q2H IV 04/30/25 08:00 04/30/25 11:59 Family History: Patient reports no known family medical history. Review of Systems Unknown ROS exactly except for back pain H&P Exam Vital Signs/I&O Vital Sign Date Time Temp Pulse Resp B/P (MAP) Pulse Ox O2 Delivery O2 Flow Rate FiO2 04/30/25 11:28 97.5 75 17 96/40 (58) 98 97.5 04/30/25 11:28 Room Air* 0 21 Intake and Output 04/29/25 04/30/25 19:00 07:00 Intake Total 3050 ml Balance 3050 ml Intake IV Total 3050 ml Physical Exam General-not in any distress HEENT-normocephalic, no icterus, no pallor, neck supple Respiratory-fair air entry bilateral, no rhonchi, no wheeze [id number] heard, Abdominal-soft, nontender, nondistended Musculoskeletal-no pedal edema, no calf tenderness, scoliosis Genitourinary-deferred, has Muller Neuro-awake alert oriented x2, Psychiatric-not agitated, cooperative, Labs/Diagnostic Data Labs/Diagnostic Data Laboratory Tests Test 04/30/25 11:36 04/30/25 11:32 04/30/25 10:59 04/30/25 04:57 Range/Units Blood Gas Specimen Type Arterial Blood Gas Sample Site Right radial Blood Gas Patient Temperature 37.0 Arterial Blood Date Drawn [id number] Arterial Blood pH 7.430 7.350-7.450 Arterial Blood Partial Pressure CO2 21.5 L 35.0-48.0 mmHg Arterial Blood Partial Pressure O2 79.7 L 83.0-108.0 mmHg Arterial Blood HCO3 14.0 L 21.0-28.0 mmol/L Arterial Blood Oxygen Saturation 94.2 94.0-98.0 % Arterial Blood Base Excess -9.5 L -2.0-3.0 mmol/L Arterial Blood Oxyhemoglobin 92.2 L 94.0-98.0 % Arterial Blood Carboxyhemoglobin 1.4 0.5-1.5 % Arterial Blood Methemoglobin 0.7 0.0-1.5 % Forest Test Yes Blood Gas Total Hemoglobin 6.20 *L 13.5-17.5 g/dL Blood Gas Modality Room air FiO2 % 21.0 Blood Gas Critical Value Read Back Yes Blood Gas Notified Whom Dr. luna Blood Gas Notified Time [id number] Blood Gas Notified By Diego kwon, department helper White Blood Count 10.8 4.4-10.8 10^3/uL Red Blood Count 2.21 L 4.5-5.90 10^6/uL Hemoglobin 6.7 #*L 13.5-17.5 g/dL Hematocrit 19.3 #L 41.0-53.0 % Mean Corpuscular Volume 87.5 80.0-100.0 fL Mean Corpuscular Hemoglobin 30.5 28.0-32.0 pg Mean Corpuscular Hemoglobin Concent 34.9 32.0-36.0 g/dL Red Cell Distribution Width 13.7 11.8-14.3 % Platelet Count 143 140-450 10^3/uL Mean Platelet Volume 10.3 6.9-10.8 fL Neutrophils (%) (Auto) 88.9 H 37.0-80.0 % Lymphocytes (%) (Auto) 4.0 L 10.0-50.0 % Monocytes (%) (Auto) 6.1 0.0-12.0 % Eosinophils (%) (Auto) 0.7 0.0-7.0 % Basophils (%) (Auto) 0.3 0.0-2.0 % Neutrophils # (Auto) 9.6 H 1.6-8.6 10 ^3/uL Lymphocytes # (Auto) 0.4 0.4-5.4 10 ^3/uL Monocytes # (Auto) 0.7 0-1.3 10 ^3/uL Eosinophils # (Auto) 0.1 0-0.8 10 ^3/uL Basophils # (Auto) 0 0-0.2 10 ^3/uL Nucleated Red Blood Cells 0.0 % Sodium Level 146 #H 136-145 mmol/L Potassium Level 3.1 L 3.5-5.1 mmol/L Chloride Level 108 H 98-107 mmol/L Carbon Dioxide Level 14 L 20-31 mmol/L Anion Gap 24 H 5-15 Blood Urea Nitrogen 151 *H 9-23 mg/dL Creatinine 11.53 *H 0.700-1.30 mg/dL Glomerular Filtration Rate Calc 4 >90 mL/min BUN/Creatinine Ratio 13.1 10.0-20.0 Serum Glucose 100 74-106 mg/dL Calcium Level 5.1 *L 8.7-10.4 mg/dL Total Bilirubin 0.2 0.2-1.0 mg/dL Aspartate Amino Transferase (AST) 16 13-40 U/L Alanine Aminotransferase (ALT) < 9 7-40 U/L Alkaline Phosphatase 50 46-116 U/L Total Protein 5.6 L 5.7-8.2 g/dL Albumin 3.6 3.2-4.8 g/dL Test 04/29/25 23:59 04/29/25 22:30 04/29/25 21:02 04/29/25 20:29 Range/Units Urine Opiates Screen Neg NEGATIVE Urine Fentanyl Screen Neg NEGATIVE Urine Barbiturates Screen Neg NEGATIVE Urine Phencyclidine Screen Neg NEGATIVE Urine Amphetamines Screen Neg NEGATIVE Urine Benzodiazepines Screen Neg NEGATIVE Urine Cocaine Screen Neg NEGATIVE Urine Cannabinoids Screen Neg NEGATIVE Troponin I High Sensitivity 28 32 </=54 ng/L Blood Gas Specimen Type Arterial Blood Gas Sample Site Left radial Blood Gas Patient Temperature 37.0 Arterial Blood Date Drawn [id number] Arterial Blood pH 7.237 *L 7.350-7.450 Arterial Blood Partial Pressure CO2 17.7 *L 35.0-48.0 mmHg Arterial Blood Partial Pressure O2 93.2 83.0-108.0 mmHg Arterial Blood HCO3 7.4 L 21.0-28.0 mmol/L Arterial Blood Oxygen Saturation 95.1 94.0-98.0 % Arterial Blood Base Excess -18.2 L -2.0-3.0 mmol/L Arterial Blood Oxyhemoglobin 94.0 94.0-98.0 % Arterial Blood Carboxyhemoglobin 1.0 0.5-1.5 % Arterial Blood Methemoglobin 0.2 0.0-1.5 % Forest Test Yes Blood Gas Total Hemoglobin 8.30 L 13.5-17.5 g/dL Blood Gas Modality Room air Blood Gas Spontaneous Rate 24 FiO2 % 21.0 Blood Gas Critical Value Read Back Yes Blood Gas Notified Whom fernando Gibson md Blood Gas Notified Time [id number] Blood Gas Notified By Test 04/29/25 19:25 04/29/25 18:18 04/29/25 18:16 Range/Units White Blood Count 11.3 H 4.4-10.8 10^3/uL Red Blood Count 2.71 L 4.5-5.90 10^6/uL Hemoglobin 8.1 L 13.5-17.5 g/dL Hematocrit 24.1 L 41.0-53.0 % Mean Corpuscular Volume 89.0 80.0-100.0 fL Mean Corpuscular Hemoglobin 30.0 28.0-32.0 pg Mean Corpuscular Hemoglobin Concent 33.7 32.0-36.0 g/dL Red Cell Distribution Width 14.0 11.8-14.3 % Platelet Count 155 140-450 10^3/uL Mean Platelet Volume 10.2 6.9-10.8 fL Neutrophils (%) (Auto) 87.9 H 37.0-80.0 % Lymphocytes (%) (Auto) 6.1 L 10.0-50.0 % Monocytes (%) (Auto) 4.7 0.0-12.0 % Eosinophils (%) (Auto) 1.0 0.0-7.0 % Basophils (%) (Auto) 0.3 0.0-2.0 % Neutrophils # (Auto) 10.0 H 1.6-8.6 10 ^3/uL Lymphocytes # (Auto) 0.7 0.4-5.4 10 ^3/uL Monocytes # (Auto) 0.5 0-1.3 10 ^3/uL Eosinophils # (Auto) 0.1 0-0.8 10 ^3/uL Basophils # (Auto) 0 0-0.2 10 ^3/uL Nucleated Red Blood Cells 0.0 % Prothrombin Time 10.9 9.3-11.8 sec Prothrombin Time INR 1.03 0.9-1.15 Sodium Level 139 136-145 mmol/L Potassium Level 4.2 3.5-5.1 mmol/L Chloride Level 106 98-107 mmol/L Carbon Dioxide Level < 10 *L 20-31 mmol/L Anion Gap 23.07752 H 5-15 Blood Urea Nitrogen 157 *H 9-23 mg/dL Creatinine 12.33 *H 0.700-1.30 mg/dL Glomerular Filtration Rate Calc 4 >90 mL/min BUN/Creatinine Ratio 12.7 10.0-20.0 Serum Glucose 108 H 74-106 mg/dL Lactic Acid Level 1.1 0.4-2.0 mmol/L Calcium Level 5.5 *L 8.7-10.4 mg/dL Magnesium Level 1.3 L 1.6-2.6 mg/dL Total Bilirubin 0.2 0.2-1.0 mg/dL Aspartate Amino Transferase (AST) 15 13-40 U/L Alanine Aminotransferase (ALT) < 9 7-40 U/L Alkaline Phosphatase 63 46-116 U/L Troponin I High Sensitivity 36 </=54 ng/L Total Protein 6.9 5.7-8.2 g/dL Albumin 4.5 3.2-4.8 g/dL Lipase 379 H 12-53 U/L Plasma/Serum Blood Alcohol < 3.0 <10 mg/dL Urine Color Colorless Yellow Urine Clarity Turbid H Clear Urine pH 5.5 5.0-9.0 Urine Specific [place] 1.012 1.001-1.035 Urine Protein 1+ H Negative Urine Ketones Negative Negative Urine Blood 1+ H Negative /uL Urine Nitrite Negative Negative Urine Bilirubin Negative Negative Urine Urobilinogen Normal Negative mg/dL Urine Leukocyte Esterase Negative Negative /uL Urine RBC 1 0 - 3 /hpf Urine WBC Clumps Present None Seen /hpf Urine Microscopic WBC 10 H 0-3 /HPF Urine Squamous Epithelial Cells Few <5 /hpf Urine Amorphous Crystals Mod None Seen /hpf Urine Bacteria Few H None Seen /hpf Urine Glucose Normal Normal mg/dL POC Glucose 120 H 70-106 mg/dl Assessment Acute kidney injury ATN plus or minus obstructive etiology Unknown renal function baseline Anion gap metabolic acidosis Hypernatremia Hypokalemia Hypocalcemia Recommendations Urine output currently at 1700 cc patient is not encephalopathic no need for urgent dialysis yet Strict Is&Os charting Half NS given hypernatremia K replace Chronic kidney disease panel Kidney ultrasound noted We will follow closely Evaluate INFORMATICA needs daily Reviewed vital signs, lab work, imaging studies, medications, microbiology, other physician recommendations More than 50% of the time spent providing direct midq-fy-xckp care . Thank you for allowing me to participate in the care of your patient. total time spent 80min since pt admitted last night Plan discussed with: Patient JOANNA GIBSON MD Apr 30, 2025 11:56
[2025-04-30] MEDS: POTASSIUM CHL 20MEQ/100ML 100 ML IV SCH (12:35)
--- NOTE | 2025-04-30 15:06 | DVHSR ---
APPROVED REPORT EXAM: Two-dimensional and M-mode echocardiogram with Doppler and color Doppler. Blood Pressure: 100/52 mmHg INDICATION SHOCK RISK FACTORS Height: 5' 4", Weight: 149 DIMENSIONS LVDd5.6 (3.8-5.7cm)LA (2D)4.6 (1.9-4.0cm)Aortic Root3.6 (2.0-3.7cm) LVDs4.8 (2.5-4.0cm)LA (MM) (1.9-4.0cm)Aortic Cusp Exc1.7 (1.5-2.0cm) EF (%) 30.0 (55-70%)Rt. Atrium4.7 (1.9-4.0cm)Asc. Aorta cm IVSd1.0 (0.7-1.1cm)RV (D) (1.8-2.4cm) PWd1.0 (0.7-1.1cm) Mitral Valve MitralMitral Stenosis E wave0.60m/sMV Mean GR.mmHg A wave0.70m/sMV Peak GR.mmHg E/A ratio0.92D MVAcm2 Aortic Valve Aortic ValveAortic Stenosis V10.59m/Nitesh Mean GR.1mmHg V20.90m/Nitesh Peak GR.3mmHg LVOT Diameter2.2 (1.8-2.4cm)Doppler AVA2.49cm2 Tricuspid Valve TR Velocity2.20m/s [id number] Conclusion 1. MODERATELY DILATED LV MODERATE DEGREE LV GLOBAL HYPOKINESIS LV EF IS 30% AND IS MODERATELY REDUCED 2. MODERATELY DILATED RV,LA AND RA 3. CALCIFIED MITRAL LEAFLETS 4. AORTIC SCLEROSIS BUT NO STENOSIS 5. NO PERICARDIAL EFFUSION 6. NORMAL RVSP AND IS 30 MM OF HG
[2025-04-30] MEDS: MORPHINE SULFATE INJ 2 MG/ml SYRG IV PRN (22:15)
[2025-04-30] MEDS: ONDANSETRON HCL 4 MG/2 ML VIAL IV ONE (22:15)
--- NOTE | 2025-04-30 23:46 | DVHINCON2 ---
Date of service: Apr 30, 2025 Referring Physician Charly Reason for Consultation Shock History of Present Illness This is a 70 year old male with a PMH of sclerosis who was brought in by his brother in law with complaint of generalized weakness x 2 months. Patient's brother in law at bedside states patient has been weak for the past 2 months and has noticed a significant cognitive decline. Brother in law also states patient is only taking pain medication. Last night patient was having a conversation with brother in law, increased concern for possible suicide. Patient and brother in law are poor historians. Chest x-ray shows prominent right perihilar markings. This maybe secondary to the severe scoliosis. There are no prior studies for comparison. Renal US revealed increased bilateral renal parenchymal echotexture and diminished cortical thickness. Simple appearing left renal pelvic cyst. Muller catheter within decompressed bladder. CT Chest/ABD/PEL demonstrated dextroscoliosis with varying degrees of atelectasis bilaterally as a sequela of the scoliosis. No pleural effusions. No areas of significant pulmonary consolidation. Dextroscoliosis of the thoracic spine with compensatory levoscoliosis of the lumbar spine. Severe kyphosis of the upper thoracic spine. No visualized vertebral gibbus deformity any vertebral body or severe compression of a vertebral body anteriorly. Punctate calculus right kidney no hydronephrosis. Multiple small gallstones. Troponin negative x 3. Renal function elevated and electrolytes abnormal. Patient was admitted to the hospital. I am asked to consult on this patient. Family History: Patient reports no known family medical history. Allergies: Coded Allergies: NO KNOWN ALLERGIES (Unverified , 04/16/23) Home Meds Active Scripts Acetaminophen (Acetaminophen Extra Stren) 500 Mg Tab, 500 MG PO Q6HP PRN for 10 Days, #40 TAB Prov:PRICILA NEELY VP PATIENT 04/24/25 Methylprednisolone (Medrol Dosepak) 4 Mg Stan, 4 MG PO UD for 6 Days, #21 TAB UAD Prov:PRICILA NEELY VP PATIENT 04/24/25 Hydrocodone-Acetaminophen (Hydrocodone Bitartrate/AC 5-325 mg) 1 Tab Tab, 1 TAB PO Q6HP PRN for 7 Days, #28 TAB Prov:SANTINO LOVELACE PAC 04/16/23 Ibuprofen (Ibuprofen) 600 Mg Tab, 1 TAB PO QID, #30 TAB Prov:SANTINO LOVELACE PAC 04/16/23 Cephalexin (KEFLEX CAPSULE) 250 Mg Cp, 1 CAP PO QID for 7 Days, #28 CAP Prov:SANTINO LOVELACE PAC 04/16/23 Current Medications Current Medications Medications (Trade) Dose Ordered Sig/Breanne Route PRN Reason Start Time Stop Time Status Last Admin Nitroglycerin (Ntrostat Sublingual) 0.4 mg Q5MINP PRN SL FOR CHEST PAIN 04/29/25 21:45 Morphine Sulfate 2 mg Q30M PRN IV FOR CHEST PAIN 04/29/25 21:45 Sodium Chloride 1,000 ml @ 100 mls/hr Q10H IV 04/29/25 22:00 04/30/25 11:01 Norepinephrine Bitartrate 250 ml @ 3.75 mls/hr Q24H IV 04/30/25 04:00 04/30/25 04:12 Potassium Chloride 100 ml @ 50 mls/hr Q2H IV 04/30/25 08:00 04/30/25 11:59 DC 04/30/25 15:57 Review of Systems CONSTITUTIONAL: Denies acute: fever, diaphoresis, chills, HEAD: Denies acute: headache, photophobia Eyes: Denies acute: Double vision, vision loss, eye pain, eye discharge. EARS: Denies acute: tinnitus, hearing loss, ear discharge, ear pain, THROAT: Denies acute: sore throat, swelling, difficulty swallowing , pain with swallowing, change in voice. NECK: Denies acute: neck pain, neck swelling, stiff neck. HEART: Denies acute : chest pain, palpitations, LUNGS: Denies acute: SOB, wheezing, cough, hemoptysis ABDOMEN: Denies acute: abdominal pain, Nausea, Vomiting, diarrhea, melena , hematemesis, hematochezia SKIN: Denies acute: rash, redness, lesions, itchiness. EXTREMITIES: Denies acute: calf pain, numbness, tingling, weakness, denies pain in extremity. Denies acute: Low back pain. Neuro: Denies acute: focal neurological deficit, motor or sensory focal neurological deficit, tremors, seizure like activity, confusion, dizziness, change in mental status, loss of bowel or bladder function, cauda equina like symptoms. : Denies acute: dysuria, hematuria, flank pain, increase in urinary frequency. PSYCH: Denies acute: hallucination, suicidal ideation, homicidal ideation. Vital Signs Vital Signs Date Time Temp Pulse Resp B/P (MAP) Pulse Ox O2 Delivery O2 Flow Rate FiO2 04/30/25 16:00 97.7 61 17 104/51 (68) 95 97.7 04/30/25 14:00 Room Air* 0 21 Physical Exam GENERAL: Alert and oriented x 3. No acute distress. EYES: PERRL, EOMI. Anicteric. HENT: Moist mucous membranes. LUNGS: Clear to auscultation bilaterally. CARDIOVASCULAR: Regular rate and rhythm. ABDOMEN: Soft, nontender and nondistended. EXTREMITIES: No edema. NEUROLOGIC: No focal neurological deficits. SKIN: Warm, dry. Labs/Diagnostic Data Labs Test 04/30/25 11:36 04/30/25 11:32 04/30/25 10:59 04/30/25 04:57 Range/Units Blood Gas Specimen Type Arterial Blood Gas Sample Site Right radial Blood Gas Patient Temperature 37.0 Arterial Blood Date Drawn [id number] Arterial Blood pH 7.430 7.350-7.450 Arterial Blood Partial Pressure CO2 21.5 L 35.0-48.0 mmHg Arterial Blood Partial Pressure O2 79.7 L 83.0-108.0 mmHg Arterial Blood HCO3 14.0 L 21.0-28.0 mmol/L Arterial Blood Oxygen Saturation 94.2 94.0-98.0 % Arterial Blood Base Excess -9.5 L -2.0-3.0 mmol/L Arterial Blood Oxyhemoglobin 92.2 L 94.0-98.0 % Arterial Blood Carboxyhemoglobin 1.4 0.5-1.5 % Arterial Blood Methemoglobin 0.7 0.0-1.5 % Forest Test Yes Blood Gas Total Hemoglobin 6.20 *L 13.5-17.5 g/dL Blood Gas Modality Room air FiO2 % 21.0 Blood Gas Critical Value Read Back Yes Blood Gas Notified Whom Dr. luna Blood Gas Notified Time [id number] Blood Gas Notified By Diego kwon, kimber White Blood Count 10.8 4.4-10.8 10^3/uL Red Blood Count 2.21 L 4.5-5.90 10^6/uL Hemoglobin 6.7 #*L 13.5-17.5 g/dL Hematocrit 19.3 #L 41.0-53.0 % Mean Corpuscular Volume 87.5 80.0-100.0 fL Mean Corpuscular Hemoglobin 30.5 28.0-32.0 pg Mean Corpuscular Hemoglobin Concent 34.9 32.0-36.0 g/dL Red Cell Distribution Width 13.7 11.8-14.3 % Platelet Count 143 140-450 10^3/uL Mean Platelet Volume 10.3 6.9-10.8 fL Neutrophils (%) (Auto) 88.9 H 37.0-80.0 % Lymphocytes (%) (Auto) 4.0 L 10.0-50.0 % Monocytes (%) (Auto) 6.1 0.0-12.0 % Eosinophils (%) (Auto) 0.7 0.0-7.0 % Basophils (%) (Auto) 0.3 0.0-2.0 % Neutrophils # (Auto) 9.6 H 1.6-8.6 10 ^3/uL Lymphocytes # (Auto) 0.4 0.4-5.4 10 ^3/uL Monocytes # (Auto) 0.7 0-1.3 10 ^3/uL Eosinophils # (Auto) 0.1 0-0.8 10 ^3/uL Basophils # (Auto) 0 0-0.2 10 ^3/uL Nucleated Red Blood Cells 0.0 % Sodium Level 146 #H 136-145 mmol/L Potassium Level 3.1 L 3.5-5.1 mmol/L Chloride Level 108 H 98-107 mmol/L Carbon Dioxide Level 14 L 20-31 mmol/L Anion Gap 24 H 5-15 Blood Urea Nitrogen 151 *H 9-23 mg/dL Creatinine 11.53 *H 0.700-1.30 mg/dL Glomerular Filtration Rate Calc 4 >90 mL/min BUN/Creatinine Ratio 13.1 10.0-20.0 Serum Glucose 100 74-106 mg/dL Calcium Level 4.9 *L 8.7-10.4 mg/dL Phosphorus Level 9.7 H 2.4-5.1 mg/dL Magnesium Level 1.4 L 1.6-2.6 mg/dL Total Bilirubin 0.2 0.2-1.0 mg/dL Aspartate Amino Transferase (AST) 16 13-40 U/L Alanine Aminotransferase (ALT) < 9 7-40 U/L Alkaline Phosphatase 50 46-116 U/L Total Protein 5.6 L 5.7-8.2 g/dL Albumin 3.6 3.2-4.8 g/dL Test 04/29/25 23:59 04/29/25 22:30 04/29/25 21:02 04/29/25 19:25 Range/Units Urine Opiates Screen Neg NEGATIVE Urine Fentanyl Screen Neg NEGATIVE Urine Barbiturates Screen Neg NEGATIVE Urine Phencyclidine Screen Neg NEGATIVE Urine Amphetamines Screen Neg NEGATIVE Urine Benzodiazepines Screen Neg NEGATIVE Urine Cocaine Screen Neg NEGATIVE Urine Cannabinoids Screen Neg NEGATIVE Troponin I High Sensitivity 28 </=54 ng/L Blood Gas Spontaneous Rate 24 Prothrombin Time 10.9 9.3-11.8 sec Prothrombin Time INR 1.03 0.9-1.15 Lactic Acid Level 1.1 0.4-2.0 mmol/L Lipase 379 H 12-53 U/L Plasma/Serum Blood Alcohol < 3.0 <10 mg/dL Test 04/29/25 18:18 04/29/25 18:16 Range/Units Urine Color Colorless Yellow Urine Clarity Turbid H Clear Urine pH 5.5 5.0-9.0 Urine Specific Martin 1.012 1.001-1.035 Urine Protein 1+ H Negative Urine Ketones Negative Negative Urine Blood 1+ H Negative /uL Urine Nitrite Negative Negative Urine Bilirubin Negative Negative Urine Urobilinogen Normal Negative mg/dL Urine Leukocyte Esterase Negative Negative /uL Urine RBC 1 0 - 3 /hpf Urine WBC Clumps Present None Seen /hpf Urine Microscopic WBC 10 H 0-3 /HPF Urine Squamous Epithelial Cells Few <5 /hpf Urine Amorphous Crystals Mod None Seen /hpf Urine Bacteria Few H None Seen /hpf Urine Glucose Normal Normal mg/dL POC Glucose 120 H 70-106 mg/dl Assessment Anion gap metabolic acidosis. BRIAN Hypocalcemia. Hypernatremia. Hypokalemia. Scoliosis. Plan/Recommendation I agree with your ongoing assessment and care of plan. Echocardiogram. Nitro SL. Morphine for pain management. Vasopressors for hemodynamic support. Additional plan as per the hospital course. Critical care time of 90 minutes provided to include time spent evaluation of patient at bedside, when appropriate patient/family education for diagnosis, treatment plan, review of pertinent medical information and discussion of care with specialty providers and PCP. Plan discussed with: Patient EDD BUITRAGO MD Apr 30, 2025 16:19
[2025-05-01] VITALS (66 sets, daily range): BP systolic 80–111; BP diastolic 45–71; PULSE 55–110; RESP 11–87; TEMP 97.9–98.7; O2SAT 93–100
[2025-05-01] MEDS: ONDANSETRON HCL 4 MG/2 ML VIAL IV ONE (05:33)
[2025-05-01 07:47] LABS: Hematocrit 23.8 % (41.0-53.0); Hemoglobin 8.0 g/dL (13.5-17.5); Mean Corpuscular Hemoglobin 30.0 pg (28.0-32.0); Mean Corpuscular Volume 89.2 fL (80.0-100.0); Nucleated Red Blood Cells % 0.0 %
[2025-05-01 08:01] LABS: Albumin 3.6 g/dL (3.2-4.8); Alkaline Phosphatase 53 U/L (46-116); Anion Gap 20 (5-15); BUN/Creatinine Ratio 12.7 (10.0-20.0); Glucose 93 mg/dL (74-106); Potassium 4.0 mmol/L (3.5-5.1); Sodium 143 mmol/L (136-145)
[2025-05-01 08:02] LABS: Bilirubin, Total 0.5 mg/dL (0.2-1.0)
[2025-05-01 08:07] LABS: Alanine Aminotransferase < 9 U/L (7-40); Carbon Dioxide 14 mmol/L (20-31); Chloride 109 mmol/L (98-107); Total Protein 5.7 g/dL (5.7-8.2)
[2025-05-01 08:09] LABS: Blood Urea Nitrogen 144 mg/dL (9-23); Calcium 5.2 mg/dL (8.7-10.4)
--- NOTE | 2025-05-01 08:29 | DVHPN2 ---
Progress Note Date Seen: May 01, 2025 Medical Necessity Reason Pt with a Central, PICC or Fol: Yes The following are medically ne: Muller Catheter Subjective Patient reports: Other (Complaints of back pain) Review of Systems: Deferred Objective vital signs Vital Sign Date Time Temp Pulse Resp B/P (MAP) Pulse Ox O2 Delivery O2 Flow Rate FiO2 05/01/25 08:00 71 05/01/25 07:00 19 90/56 (67) 96 04/30/25 21:40 Room Air* 0 21 04/30/25 19:00 99.5 99.5 Total Intake and Output 04/30/25 04/30/25 05/01/25 15:00 23:00 07:00 Intake Total 822.00 ml 1248.75 ml 852.5 ml Output Total 1900 ml 1200 ml Balance 822.00 ml -651.25 ml -347.5 ml medications Current Medications Medications Dose Ordered Sig/Breanne Route Start Time Stop Time Status Last Admin Dose Admin Nitroglycerin 0.4 mg Q5MINP PRN SL 04/29/25 21:45 Morphine Sulfate 2 mg Q30M PRN IV 04/29/25 21:45 05/01/25 05:33 2 MG Sodium Chloride 1,000 ml @ 100 mls/hr Q10H IV 04/29/25 22:00 05/01/25 04:00 100 MLS/HR Norepinephrine Bitartrate 250 ml @ 3.75 mls/hr Q24H IV 04/30/25 04:00 05/01/25 04:00 7.5 MLS/HR Calcium Gluconate/ Sodium Chloride 50 ml @ 100 mls/hr Q30M IV 05/01/25 08:15 05/01/25 09:14 UNV Examination: GENERAL:Abnormal, MSK:Abnormal, NEURO:Normal, :Normal laboratory and microbiology Laboratory Tests 05/01/25 07:12 Test 05/01/25 07:12 Range/Units Serum Glucose 93 74-106 mg/dL Problem List/Assessment/Plan Problem List/Assessment/Plan Acute kidney injury ATN plus or minus obstructive etiology Unknown renal function baseline Anion gap metabolic acidosis --ketoacidosis starvation? Hypernatremia Hypokalemia Hypocalcemia Recommendations Change fluids to D5 LR IV Check beta hydroxybutyrate K replace p.r.n. 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
[2025-05-01] MEDS: D5W/LACTATED RINGERS 1,000 ML IV SCH (09:30)
[2025-05-01] MEDS: CALCIUM GLUC 1,000mg/50ml-NS 50 ML IV SCH (09:31)
[2025-05-01] MEDS ORDERED: ONDANSETRON HCL 4 MG/2 ML VIAL IV PRN (10:15)
[2025-05-01] MEDS: MAGNESIUM OXIDE 400 MG TAB PO ONE (10:40)
[2025-05-01] MEDS: PHENTOLAMINE MESYLATE 5 MG INJ VIAL SUBCUT ONE ×2 (10:41→18:50)
--- NOTE | 2025-05-01 14:32 | DVHPN2 ---
Progress Note - Dictate Date Seen: May 01, 2025 Medical Necessity Reason Pt with a Central, PICC or Fol: Yes The following are medically ne: Muller Catheter Subjective Patient feeling improved since yesterday. Noted to have SI yesterday per nurse. Pending tele psych eval. vital signs Vital Sign Date Time Temp Pulse Resp B/P (MAP) Pulse Ox O2 Delivery O2 Flow Rate FiO2 05/01/25 11:15 60 16 93/50 (64) 96 05/01/25 10:00 Room Air* 0 21 05/01/25 08:00 98.4 98.4 Total Intake and Output 04/30/25 04/30/25 05/01/25 15:00 23:00 07:00 Intake Total 822.00 ml 1248.75 ml 956.25 ml Output Total 1900 ml 2600 ml Balance 822.00 ml -651.25 ml -1643.75 ml medications Current Medications Medications Dose Ordered Sig/Breanne Route Start Time Stop Time Status Last Admin Dose Admin Nitroglycerin 0.4 mg Q5MINP PRN SL 04/29/25 21:45 Morphine Sulfate 2 mg Q30M PRN IV 04/29/25 21:45 05/01/25 05:33 2 MG Norepinephrine Bitartrate 250 ml @ 3.75 mls/hr Q24H IV 04/30/25 04:00 05/01/25 04:00 7.5 MLS/HR Dextrose/Lactated Ringer's 1,000 ml @ 100 mls/hr Q10H IV 05/01/25 08:30 05/01/25 09:30 100 MLS/HR Ondansetron HCl 4 mg Q6HPRN PRN IV 05/01/25 10:15 Nystatin 1 applic BID TOP 05/01/25 22:00 objective General appearance: Disheveled Respiratory: Lungs clear to auscultation. No wheezing, crackles Cardiovascular: Regular rate and rhythm, no murmurs. No edema Abdomen: Soft, nondistended, nontender, bowel sounds present MSK: Malnourished, muscle wasting Neuro: Alert, no neurological deficits Psych: SI thoughts : Rash in groin laboratory and microbiology Laboratory Tests 05/01/25 07:12 Test 05/01/25 07:12 Range/Units Serum Glucose 93 74-106 mg/dL Assessment/Plan 1. Hypotensive Shock due to Severe Dehydration 2. Malnourishment 3. BRIAN, VMN due to hypotension 4. HFpEF, reduced systolic EF 30%, acute Plan: - Nephrology consulted for BRIAN - Patient having good urine output, no indication for dialysis at this time -Strict I's and O's -Avoid nephrotoxic medications - Continue Levophed with goal MAP greater than 65. Will downgrade to telemetry once Levophed off for 24 hours and MAP sustaining greater than 65 - Anecdote for Levophed infiltration in arm. Nurse aware. - Ensure shakes 3 times daily due to malnourishment - No signs of fluid overload at this time. Will continue to monitor in the setting of CHF - Nystatin cream for rash in groin - Blood culture and urine culture ordered to rule out any cause of underlying infection. Low suspicion for sepsis at this time. -PT eval pending. Plan to DC to SNF for PT once medically stabilized -Patient S/P 1 U PRBC. PRotonix 40mg IV daily. No signs of GIB at this time. Iron panel pending. - Daily CBC and BMP - Full code Plan discussed with: Patient JOSEPHINE CAN DO May 01, 2025 14:32
[2025-05-01] MEDS: PANTOPRAZOLE 40 MG/10 ML VIAL INJ IV SCH (17:35)
--- NOTE | 2025-05-01 21:45 | DVH ---
CHEST RADIOGRAPH Indication: CENTRAL LINE PLACEMENT Technique: Single frontal view of the chest was obtained Comparison: XY CHEST PORTABLE on DOS: 04/29/25 FINDINGS: Lines and Tubes: Right internal jugular catheter in place with the tip at the cavoatrial junction. Lungs: Right lower lobe airspace disease and atelectasis. Pleura: No effusion. No pneumothorax. Cardiomediastinal contours: Unremarkable Bones: No acute osseous abnormality. IMPRESSION: 1. Right internal jugular catheter in place at the cavoatrial junction. 2. Development of a airspace disease and atelectasis in the right base when compared 04/29/2025.
--- NOTE | 2025-05-01 21:57 | DVHNC2 ---
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 of integration engineer (dr rios) Indication: Hypotension Room prepared for procedure: Yes Industrial Equipment Mechanic performed hand hygien: Yes Maximal sterile barrier precau: Mask/Eye shield, Sterile gown, Cap, Sterlie gloves, Large sterlie drape Skin Preparation: Chlorhexidine gluconate Skin preparation completely dr: Yes Insertion site: Right, Internal jugular Central line catheter type: [id number] dialysis Number of lumens: 3 Post Assessment: Chest X-Ray, Proper placement, No Pneumothorax Informed consent obtained: Yes Risks/benefits/alt described: Yes Notes The patient was lying in the Trendelenburg position with head turned 30 degrees away from the insertion site. The skin was thoroughly sponged with chlorhexidine and allowed to dry. All persons involved were shielded with hair nets, face masks and sterile gowns. With sterile-gloved hands the right neck area was draped with the large disposable sterile field provided in the pre-manufactured kit. The skin and subcutaneous tissues superficial to the RIGHT internal jugular vein were anesthetized with 2 mL of 1% lidocaine. The RIGHT internal jugular vein was identified on ultrasound from the angle of the mandible down into the supraclavicular fossa using the linear ultrasound probe in the transverse orientation. The carotid artery was identified and avoided utilizing color-flow. The internal jugular vein was then placed in the center of the ultrasound field and compressed for patency. A movement artifact was identified as the needle was advanced through the skin and advanced toward the vessel. A real time hyperechoic signal revealed visualization of vascular needle entry into the lumen as blood was noted to flashback in the syringe. The needle was then held in place while the guide wire was advanced. The needle was then removed. Direct visualization of guide wire location within the vein was noted on ultrasound indicating proper placement and was document in the electronic medical record chart. A skin dilator was advanced over the guidewire and removed, and the triple-lumen catheter was then advanced over the guide wire into proper position. The guide wire was removed and discarded. The ports were aspirated which showed good blood return and then carefully flushed with normal saline. The catheter was stabilized and sutured to the skin with 2-0 silk at 2 anchor points. A sterile bio-patch and dressing was placed over the catheter, including the insertion site. The patient tolerated the procedure well. A chest x-ray was ordered for position confirmation. Post-procedure chest x-ray: tip cavo atrial junction, no pneumothorax Date of Service: May 01, 2025 Billing Provider: LEANNE DOMÍNGUEZ MD Cardiology Common Codes: PROCEDURE ONLY (non tunnel central line insertion) MAEVE RIOS RESIDENT May 01, 2025 21:57
[2025-05-01] MEDS: NYSTATIN TOPICAL POWDER 15GM TOP SCH (22:00)
--- NOTE | 2025-05-01 22:26 | DVHPN2 ---
Progress Note - Dictate Date Seen: May 01, 2025 Medical Necessity Reason Pt with a Central, PICC or Fol: Yes The following are medically ne: Muller Catheter Subjective Patient was seen and evaluated in follow up in the ICU. Patient is complaining of back pain. Patient had a non tunnel central line insertion. Patient receiving vasopressors for hemodynamic support. Patient reports feeling nauseous and not having an appetite. 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 Echocardiogram showed an EF of 30%. vital signs Vital Sign Date Time Temp Pulse Resp B/P (MAP) Pulse Ox O2 Delivery O2 Flow Rate FiO2 05/01/25 11:15 60 16 93/50 (64) 96 05/01/25 10:00 Room Air* 0 21 05/01/25 08:00 98.4 98.4 Total Intake and Output 04/30/25 04/30/25 05/01/25 15:00 23:00 07:00 Intake Total 822.00 ml 1248.75 ml 956.25 ml Output Total 1900 ml 2600 ml Balance 822.00 ml -651.25 ml -1643.75 ml medications Current Medications Medications Dose Ordered Sig/Breanne Route Start Time Stop Time Status Last Admin Dose Admin Nitroglycerin 0.4 mg Q5MINP PRN SL 04/29/25 21:45 Morphine Sulfate 2 mg Q30M PRN IV 04/29/25 21:45 05/01/25 05:33 2 MG Norepinephrine Bitartrate 250 ml @ 3.75 mls/hr Q24H IV 04/30/25 04:00 05/01/25 04:00 7.5 MLS/HR Dextrose/Lactated Ringer's 1,000 ml @ 100 mls/hr Q10H IV 05/01/25 08:30 05/01/25 09:30 100 MLS/HR Ondansetron HCl 4 mg Q6HPRN PRN IV 05/01/25 10:15 Nystatin 1 applic BID TOP 05/01/25 22:00 objective GENERAL: Alert and oriented x 3. No acute distress. EYES: PERRL, EOMI. Anicteric. HENT: Moist mucous membranes. LUNGS: Clear to auscultation bilaterally. CARDIOVASCULAR: Regular rate and rhythm. ABDOMEN: Soft, nontender and nondistended. EXTREMITIES: No edema. NEUROLOGIC: No focal neurological deficits. SKIN: Warm, dry. laboratory and microbiology Laboratory Tests 05/01/25 07:12 Test 05/01/25 07:12 Range/Units Serum Glucose 93 74-106 mg/dL Problem List Anion gap metabolic acidosis. Hypotension. Malnourishment. Dehydration. BRIAN Hypocalcemia. Hypernatremia. Hypokalemia. HFpEF, reduced systolic EF 30%, acute. Assessment/Plan Continued all current supportive medical care. Morphine for pain management. Vasopressors for hemodynamic support. GI prophylactics. Additional plan as per the hospital course. Critical care time of 45 minutes provided to include time spent evaluation of patient at bedside, when appropriate patient/family education for diagnosis, treatment plan, review of pertinent medical information and discussion of care with specialty providers and PCP. Plan discussed with: Patient EDD BUITRAGO MD May 01, 2025 12:59
[2025-05-02] VITALS (93 sets, daily range): BP systolic 85–117; BP diastolic 45–71; PULSE 55–97; RESP 11–29; TEMP 97.6–98.7; O2SAT 90–99
[2025-05-02 03:58] LABS: Hematocrit 22.1 % (41.0-53.0); Hemoglobin 7.5 g/dL (13.5-17.5); Mean Corpuscular Hemoglobin 30.1 pg (28.0-32.0); Mean Corpuscular Volume 88.5 fL (80.0-100.0); Nucleated Red Blood Cells % 0.0 %
[2025-05-02 04:13] LABS: Iron 64.0 ug/dL (65-175)
[2025-05-02 04:21] LABS: Albumin 3.4 g/dL (3.2-4.8); Alkaline Phosphatase 51 U/L (46-116); Anion Gap 18 (5-15); BUN/Creatinine Ratio 13.1 (10.0-20.0); Bilirubin, Total 0.3 mg/dL (0.2-1.0); Sodium 143 mmol/L (136-145)
[2025-05-02 04:35] LABS: Total Iron Binding Capacity 176.0 ug/dL (250-425)
[2025-05-02 04:37] LABS: Carbon Dioxide 17 mmol/L (20-31); Chloride 108 mmol/L (98-107); Glucose 118 mg/dL (74-106); Potassium 3.4 mmol/L (3.5-5.1)
[2025-05-02 04:38] LABS: Alanine Aminotransferase < 9 U/L (7-40); Magnesium 1.3 mg/dL (1.6-2.6); Total Protein 5.4 g/dL (5.7-8.2)
[2025-05-02 04:39] LABS: Blood Urea Nitrogen 135 mg/dL (9-23); Calcium 5.3 mg/dL (8.7-10.4)
[2025-05-02] MEDS: MAGNESIUM OXIDE 400 MG TAB PO ONE (09:23)
[2025-05-02] MEDS: POTASSIUM CHL 10 Meq TABLET PO ONE (09:23)
--- NOTE | 2025-05-02 10:05 | DVHPN2 ---
Progress Note Date Seen: May 02, 2025 Medical Necessity Reason Pt with a Central, PICC or Fol: Yes The following are medically ne: Riley Catheter Reason for riley catheter: Bladder Retention/Obstruc Objective vital signs Vital Sign Date Time Temp Pulse Resp B/P (MAP) Pulse Ox O2 Delivery O2 Flow Rate FiO2 05/02/25 08:21 108/56 05/02/25 07:30 77 05/02/25 06:15 16 97 05/02/25 06:00 Room Air* 0 21 05/02/25 04:00 98.3 98.3 Total Intake and Output 05/01/25 05/01/25 05/02/25 15:00 23:00 07:00 Intake Total 815.00 ml 1133.75 ml 1021.25 ml Output Total 900 ml 1750 ml Balance 815.00 ml 233.75 ml -728.75 ml medications Current Medications Medications Dose Ordered Sig/Breanne Route Start Time Stop Time Status Last Admin Dose Admin Nitroglycerin 0.4 mg Q5MINP PRN SL 04/29/25 21:45 Morphine Sulfate 2 mg Q30M PRN IV 04/29/25 21:45 05/01/25 05:33 2 MG Norepinephrine Bitartrate 250 ml @ 3.75 mls/hr Q24H IV 04/30/25 04:00 05/01/25 04:00 7.5 MLS/HR Dextrose/Lactated Ringer's 1,000 ml @ 100 mls/hr Q10H IV 05/01/25 08:30 05/01/25 20:45 100 MLS/HR Ondansetron HCl 4 mg Q6HPRN PRN IV 05/01/25 10:15 Nystatin 1 applic BID TOP 05/01/25 22:00 05/02/25 09:24 1 APPLIC Pantoprazole Sodium 40 mg DAILY IV 05/01/25 14:30 05/02/25 09:24 40 MG Examination: GENERAL:Abnormal, LUNGS:Abnormal, SKIN:Abnormal laboratory and microbiology Laboratory Tests 05/02/25 03:13 Test 05/02/25 03:13 Range/Units Serum Glucose 118 H 74-106 mg/dL Problem List/Assessment/Plan Problem List/Assessment/Plan Acute kidney injury ATN plus obstructive etiology Unknown renal function baseline Anion gap metabolic acidosis Hypernatremia Hypokalemia Hypocalcemia Right renal stone IVF replace Mg, K , sodium bicarb IV monitor UOP metabolic clearance has not returned will require close monitoring for HD needs Plan discussed with: Patient My Orders My Orders Orders - KAYLEY DANIELS MD Procedure Category Date Status Time Phosphorus LAB 05/02/25 In Process 09:26 Dietary Evaluation Review Comments: 1) Initiate Nepro tid 2) Initiate Nephro-Conner @ 1 tb qd 3) Encourage optimal PO intake 4) Follow-up with nephrology 5) Continue to monitor I&O, labs, and skin integrity Expected Outcomes/Goals: 1) appetite and labs to improve 2) f/u in 3-5 days Total Time (mins): 35 KAYLEY DANIELS MD May 02, 2025 10:05
[2025-05-02] MEDS: SODIUM BICARB 8.4% 50Meq/50ml SYR Vial IV ONE (10:30)
--- NOTE | 2025-05-02 11:48 | DVHPN2 ---
Progress Note - Dictate Date Seen: May 02, 2025 Medical Necessity Reason Pt with a Central, PICC or Fol: Yes The following are medically ne: Riley Catheter Reason for riley catheter: Bladder Retention/Obstruc Subjective Patient feeling improved. Tolerating diet. vital signs Vital Sign Date Time Temp Pulse Resp B/P (MAP) Pulse Ox O2 Delivery O2 Flow Rate FiO2 05/02/25 08:21 108/56 05/02/25 07:30 77 05/02/25 06:15 16 97 05/02/25 06:00 Room Air* 0 21 05/02/25 04:00 98.3 98.3 Total Intake and Output 05/01/25 05/01/25 05/02/25 15:00 23:00 07:00 Intake Total 815.00 ml 1133.75 ml 1021.25 ml Output Total 900 ml 1750 ml Balance 815.00 ml 233.75 ml -728.75 ml medications Current Medications Medications Dose Ordered Sig/Breanne Route Start Time Stop Time Status Last Admin Dose Admin Nitroglycerin 0.4 mg Q5MINP PRN SL 04/29/25 21:45 Morphine Sulfate 2 mg Q30M PRN IV 04/29/25 21:45 05/01/25 05:33 2 MG Norepinephrine Bitartrate 250 ml @ 3.75 mls/hr Q24H IV 04/30/25 04:00 05/01/25 04:00 7.5 MLS/HR Dextrose/Lactated Ringer's 1,000 ml @ 100 mls/hr Q10H IV 05/01/25 08:30 05/01/25 20:45 100 MLS/HR Ondansetron HCl 4 mg Q6HPRN PRN IV 05/01/25 10:15 Nystatin 1 applic BID TOP 05/01/25 22:00 05/02/25 09:24 1 APPLIC Pantoprazole Sodium 40 mg DAILY IV 05/01/25 14:30 05/02/25 09:24 40 MG objective General appearance: Disheveled Respiratory: Lungs clear to auscultation. No wheezing, crackles Cardiovascular: Regular rate and rhythm, no murmurs. No edema Abdomen: Soft, nondistended, nontender, bowel sounds present MSK: Malnourished, muscle wasting Neuro: Alert, no neurological deficits Psych: SI thoughts : Rash in groin laboratory and microbiology Laboratory Tests 05/02/25 03:13 Test 05/02/25 03:13 Range/Units Serum Glucose 118 H 74-106 mg/dL Assessment/Plan 1. Hypotensive Shock due to Severe Dehydration 2. Malnourishment 3. BRIAN, VMN due to hypotension 4. HFpEF, reduced systolic EF 30%, acute 5. Sepsis Plan: - Nephrology consulted for BRIAN - Patient having good urine output, no indication for dialysis at this time -Strict I's and O's -Avoid nephrotoxic medications - Continue Levophed with goal MAP greater than 65. Will downgrade to telemetry once Levophed off for 24 hours and MAP sustaining greater than 65. Central line placed 05/01. - S/p Anecdote for Levophed infiltration in arm. - Ensure shakes 3 times daily due to malnourishment - No signs of fluid overload at this time. Will continue to monitor in the setting of CHF - Nystatin cream for rash in groin - Blood culture shows gram positive cocci in clusters, final speciation pending. Will start Merrem. ID, Dr. Torres consulted -PT eval pending. Plan to DC to SNF for PT once medically stabilized -Patient S/P 1 U PRBC. PRotonix 40mg IV daily. No signs of GIB at this time. Iron panel pending. - Daily CBC and BMP -Tele psych consult for SI - Full code Dietary Evaluation Review Comments: 1) Initiate Nepro tid 2) Initiate Nephro-Conner @ 1 tb qd 3) Encourage optimal PO intake 4) Follow-up with nephrology 5) Continue to monitor I&O, labs, and skin integrity Expected Outcomes/Goals: 1) appetite and labs to improve 2) f/u in 3-5 days Plan discussed with: Patient JOSEPHINE CAN DO May 02, 2025 11:48
[2025-05-02] MEDS: LACTATED RINGER'S 1,000 ML IV ONE (13:21)
[2025-05-02] MEDS ORDERED: MEROPENEM 500MG IVPB 50 ML IV ONE ×2 (13:35)
[2025-05-02] MEDS ORDERED: VANCOMYCIN PER PHARMACY 0 MG IV SCH (13:45)
[2025-05-02] MEDS: MEROPENEM 500MG IVPB 50 ML IV ONE (15:31)
--- NOTE | 2025-05-02 16:12 | ECG ---
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
[2025-05-02] MEDS: Nepro With Carbsteady Vanilla 8oz Carton PO SCH (18:50)
--- NOTE | 2025-05-02 23:26 | DVHPN2 ---
Progress Note - Dictate Date Seen: May 02, 2025 Medical Necessity Reason Pt with a Central, PICC or Fol: Yes The following are medically ne: Riley Catheter Reason for riley catheter: Bladder Retention/Obstruc Subjective Patient was seen and evaluated in follow up in the ICU. No overnight events. Patient is complaining of back discomfort. Patient is tolerating diet. HGB 7.5, HCT 22.1, K 3.4, BUN 135, Trouble Clerk 10.28, CA 5.3. vital signs Vital Sign Date Time Temp Pulse Resp B/P (MAP) Pulse Ox O2 Delivery O2 Flow Rate FiO2 05/02/25 23:00 80 26 104/71 (82) 96 05/02/25 22:00 Room Air* 0 21 05/02/25 20:00 97.8 97.8 Total Intake and Output 05/01/25 05/01/25 05/02/25 15:00 23:00 07:00 Intake Total 815.00 ml 1133.75 ml 1021.25 ml Output Total 900 ml 1750 ml Balance 815.00 ml 233.75 ml -728.75 ml medications Current Medications Medications Dose Ordered Sig/Breanne Route Start Time Stop Time Status Last Admin Dose Admin Nitroglycerin 0.4 mg Q5MINP PRN SL 04/29/25 21:45 Morphine Sulfate 2 mg Q30M PRN IV 04/29/25 21:45 05/01/25 05:33 2 MG Norepinephrine Bitartrate 250 ml @ 3.75 mls/hr Q24H IV 04/30/25 04:00 05/02/25 16:51 3.75 MLS/HR Dextrose/Lactated Ringer's 1,000 ml @ 100 mls/hr Q10H IV 05/01/25 08:30 05/02/25 16:31 100 MLS/HR Ondansetron HCl 4 mg Q6HPRN PRN IV 05/01/25 10:15 Nystatin 1 applic BID TOP 05/01/25 22:00 05/02/25 21:26 1 APPLIC Pantoprazole Sodium 40 mg DAILY IV 05/01/25 14:30 05/02/25 09:24 40 MG Meropenem 50 ml @ 17 mls/hr QPM IV 05/03/25 18:00 Vancomycin HCl 0 ml @ 0 mls/hr UD IV 05/02/25 13:45 Enteral Nutritional Formula 240 ml QID PO 05/02/25 18:00 objective GENERAL: Alert and oriented x 3. No acute distress. EYES: PERRL, EOMI. Anicteric. HENT: Moist mucous membranes. LUNGS: Clear to auscultation bilaterally. CARDIOVASCULAR: Regular rate and rhythm. ABDOMEN: Soft, nontender and nondistended. EXTREMITIES: No edema. NEUROLOGIC: No focal neurological deficits. SKIN: Warm, dry. laboratory and microbiology Laboratory Tests 05/02/25 03:13 Test 05/02/25 03:13 Range/Units Serum Glucose 118 H 74-106 mg/dL Problem List Anion gap metabolic acidosis. Hypotension. Malnourishment. Dehydration. BRIAN Hypocalcemia. Hypernatremia. Hypokalemia. HFpEF, reduced systolic EF 30%, acute. Assessment/Plan Continued all current supportive medical care. Morphine for pain management. Vasopressors for hemodynamic support. GI prophylactics. Additional plan as per the hospital course. Critical care time of 45 minutes provided to include time spent evaluation of patient at bedside, when appropriate patient/family education for diagnosis, treatment plan, review of pertinent medical information and discussion of care with specialty providers and PCP. Dietary Evaluation Review Comments: 1) Initiate Nepro tid 2) Initiate Nephro-Conner @ 1 tb qd 3) Encourage optimal PO intake 4) Follow-up with nephrology 5) Continue to monitor I&O, labs, and skin integrity Expected Outcomes/Goals: 1) appetite and labs to improve 2) f/u in 3-5 days Plan discussed with: Patient EDD BUITRAGO MD May 02, 2025 23:26
[2025-05-03] VITALS (95 sets, daily range): BP systolic 86–118; BP diastolic 43–75; PULSE 60–121; RESP 13–26; TEMP 97.5–98.3; O2SAT 89–100
[2025-05-03 04:01] LABS: Hematocrit 20.7 % (41.0-53.0); Mean Corpuscular Hemoglobin 30.2 pg (28.0-32.0); Mean Corpuscular Volume 89.0 fL (80.0-100.0); Nucleated Red Blood Cells % 0.0 %
[2025-05-03 04:04] LABS: Hemoglobin 7.0 g/dL (13.5-17.5)
[2025-05-03 04:42] LABS: Alkaline Phosphatase 46 U/L (46-116); Anion Gap 16 (5-15); BUN/Creatinine Ratio 12.9 (10.0-20.0); Carbon Dioxide 22 mmol/L (20-31); Chloride 107 mmol/L (98-107); Glucose 105 mg/dL (74-106); Potassium 3.5 mmol/L (3.5-5.1); Sodium 145 mmol/L (136-145)
[2025-05-03 05:10] LABS: Alanine Aminotransferase < 9 U/L (7-40); Albumin 3.2 g/dL (3.2-4.8); Bilirubin, Total 0.3 mg/dL (0.2-1.0); Total Protein 5.0 g/dL (5.7-8.2)
[2025-05-03 05:11] LABS: Blood Urea Nitrogen 112 mg/dL (9-23); Calcium 5.0 mg/dL (8.7-10.4)
[2025-05-03] MEDS: CALCIUM ACETATE 667 MG CAP PO SCH (08:43)
[2025-05-03] MEDS: MAGNESIUM SULFATE 1GM/100ML 100 ML IV ONE (08:44)
--- NOTE | 2025-05-03 09:46 | DVHPN2 ---
Progress Note Date Seen: May 03, 2025 Medical Necessity Reason Pt with a Central, PICC or Fol: Yes The following are medically ne: Riley Catheter Reason for riley catheter: Bladder Retention/Obstruc Subjective Patient reports: Feels better Objective vital signs Vital Sign Date Time Temp Pulse Resp B/P (MAP) Pulse Ox O2 Delivery O2 Flow Rate FiO2 05/03/25 06:35 78 19 97 Nasal Cannula* 2 28 05/03/25 06:00 90/68 (75) 05/03/25 04:00 97.9 97.9 Total Intake and Output 05/02/25 05/02/25 05/03/25 15:00 23:00 07:00 Intake Total 1103.75 ml 1896.25 ml 1676.25 ml Output Total 1800 ml 2300 ml Balance 1103.75 ml 96.25 ml -623.75 ml medications Current Medications Medications Dose Ordered Sig/Breanne Route Start Time Stop Time Status Last Admin Dose Admin Nitroglycerin 0.4 mg Q5MINP PRN SL 04/29/25 21:45 Morphine Sulfate 2 mg Q30M PRN IV 04/29/25 21:45 05/01/25 05:33 2 MG Norepinephrine Bitartrate 250 ml @ 3.75 mls/hr Q24H IV 04/30/25 04:00 05/02/25 16:51 3.75 MLS/HR Dextrose/Lactated Ringer's 1,000 ml @ 100 mls/hr Q10H IV 05/01/25 08:30 05/03/25 02:12 100 MLS/HR Ondansetron HCl 4 mg Q6HPRN PRN IV 05/01/25 10:15 Nystatin 1 applic BID TOP 05/01/25 22:00 05/02/25 21:26 1 APPLIC Pantoprazole Sodium 40 mg DAILY IV 05/01/25 14:30 05/02/25 09:24 40 MG Meropenem 50 ml @ 17 mls/hr QPM IV 05/03/25 18:00 Vancomycin HCl 0 ml @ 0 mls/hr UD IV 05/02/25 13:45 Enteral Nutritional Formula 240 ml QID PO 05/02/25 18:00 Calcium Acetate 1,334 mg TIDWMEALS PO 05/03/25 08:00 05/03/25 08:43 1,334 MG Epoetin Ulisses-epbx 10,000 unit TUTHSA SC 05/03/25 10:00 Examination: GENERAL:Abnormal laboratory and microbiology Laboratory Tests 05/03/25 03:28 Test 05/03/25 03:28 Range/Units Serum Glucose 105 74-106 mg/dL Microbiology Date/Time Source Procedure Growth Status 05/01/25 11:45 Blood Blood Culture - Preliminary Resulted Problem List/Assessment/Plan Problem List/Assessment/Plan Acute kidney injury ATN plus obstructive etiology Unknown renal function baseline Anion gap metabolic acidosis Hypernatremia Hypokalemia Hypocalcemia Right renal stone anemia renal function is improving but has not normalized IVF PRBC today to achieve hb 8.0 replace Mg, K monitor UOP metabolic clearance has not returned will require close monitoring for HD needs Plan discussed with: Patient My Orders My Orders Orders - KAYLEY DANIELS MD Procedure Category Date Status Time Communication Order ORDERS 05/02/25 Transmitted 10:20 Calcium Acetate PHA 05/03/25 In Process Capsule (Phoslo 08:00 Epoetin Ulisses-Epbx PHA 05/03/25 In Process (Retacrit) 10:00 Dietary Evaluation Review Comments: 1) Initiate Nepro tid 2) Initiate Nephro-Conner @ 1 tb qd 3) Encourage optimal PO intake 4) Follow-up with nephrology 5) Continue to monitor I&O, labs, and skin integrity Expected Outcomes/Goals: 1) appetite and labs to improve 2) f/u in 3-5 days Critical Care Time (mins): 33 KAYLEY DANIELS MD May 03, 2025 09:46
[2025-05-03] MEDS: EPOETIN ALFA-EPBX 10,000 UNIT/1ML VIAL SC SCH (11:08)
[2025-05-03 16:34] LABS: Anion Gap 15 (5-15); Carbon Dioxide 23 mmol/L (20-31)
[2025-05-03 16:40] LABS: Glucose 117 mg/dL (74-106)
[2025-05-03 16:41] LABS: Magnesium 1.3 mg/dL (1.6-2.6)
[2025-05-03 16:45] LABS: Chloride 108 mmol/L (98-107); Potassium 3.5 mmol/L (3.5-5.1); Sodium 146 mmol/L (136-145)
[2025-05-03 16:46] LABS: BUN/Creatinine Ratio 12.3 (10.0-20.0); Blood Urea Nitrogen 104 mg/dL (9-23); Calcium 5.3 mg/dL (8.7-10.4)
[2025-05-03] MEDS: MEROPENEM 500MG IVPB 50 ML IV SCH (18:45)
--- NOTE | 2025-05-03 22:01 | DVHPN2 ---
Progress Note - Dictate Date Seen: May 03, 2025 Medical Necessity Reason Pt with a Central, PICC or Fol: Yes The following are medically ne: Riley Catheter Reason for riley catheter: Bladder Retention/Obstruc Subjective Patient feeling improved. Tolerating diet. No signs of GIB. vital signs Vital Sign Date Time Temp Pulse Resp B/P (MAP) Pulse Ox O2 Delivery O2 Flow Rate FiO2 05/03/25 20:00 84 05/03/25 20:00 24 99 Nasal Cannula* 2 28 05/03/25 18:45 106/62 (77) 05/03/25 12:52 97.5 97.5 Total Intake and Output 05/02/25 05/02/25 05/03/25 15:00 23:00 07:00 Intake Total 1103.75 ml 1896.25 ml 1780.00 ml Output Total 1800 ml 2300 ml Balance 1103.75 ml 96.25 ml -520.00 ml medications Current Medications Medications Dose Ordered Sig/Breanne Route Start Time Stop Time Status Last Admin Dose Admin Nitroglycerin 0.4 mg Q5MINP PRN SL 04/29/25 21:45 Morphine Sulfate 2 mg Q30M PRN IV 04/29/25 21:45 05/01/25 05:33 2 MG Norepinephrine Bitartrate 250 ml @ 3.75 mls/hr Q24H IV 04/30/25 04:00 05/02/25 16:51 3.75 MLS/HR Dextrose/Lactated Ringer's 1,000 ml @ 100 mls/hr Q10H IV 05/01/25 08:30 05/03/25 11:13 100 MLS/HR Ondansetron HCl 4 mg Q6HPRN PRN IV 05/01/25 10:15 Nystatin 1 applic BID TOP 05/01/25 22:00 05/03/25 10:00 1 APPLIC Pantoprazole Sodium 40 mg DAILY IV 05/01/25 14:30 05/03/25 11:13 40 MG Meropenem 50 ml @ 17 mls/hr QPM IV 05/03/25 18:00 05/03/25 18:45 17 MLS/HR Vancomycin HCl 0 ml @ 0 mls/hr UD IV 05/02/25 13:45 Enteral Nutritional Formula 240 ml QID PO 05/02/25 18:00 05/03/25 18:00 240 ML Calcium Acetate 1,334 mg TIDWMEALS PO 05/03/25 08:00 05/03/25 18:45 1,334 MG Epoetin Ulisses-epbx 10,000 unit TUTHSA SC 05/03/25 10:00 05/03/25 11:08 10,000 UNIT objective General appearance: Disheveled Respiratory: Lungs clear to auscultation. No wheezing, crackles Cardiovascular: Regular rate and rhythm, no murmurs. No edema Abdomen: Soft, nondistended, nontender, bowel sounds present MSK: Malnourished, muscle wasting Neuro: Alert, no neurological deficits Psych: SI thoughts : Rash in groin laboratory and microbiology Laboratory Tests 05/03/25 16:15 05/03/25 03:28 Test 05/03/25 16:15 Range/Units Serum Glucose 117 H 74-106 mg/dL Assessment/Plan 1. Hypotensive Shock due to Severe Dehydration 2. Malnourishment 3. BRIAN, VMN due to hypotension 4. HFpEF, reduced systolic EF 30%, acute 5. Sepsis Plan: - Nephrology consulted for BRIAN - Patient having good urine output, no indication for dialysis at this time -Strict I's and O's -Avoid nephrotoxic medications - Continue Levophed with goal MAP greater than 65. Will downgrade to telemetry once Levophed off for 24 hours and MAP sustaining greater than 65. Central line placed 05/01. - S/p Anecdote for Levophed infiltration in arm. - Ensure shakes 3 times daily due to malnourishment - No signs of fluid overload at this time. Will continue to monitor in the setting of CHF - Nystatin cream for rash in groin - Blood culture shows gram positive cocci in clusters, final speciation pending. Will start Merrem. ID, Dr. Torres consulted. Repeat culture pending. -PT eval pending. Plan to DC to SNF for PT once medically stabilized -Patient S/P 1 U PRBC 05/03 for total of 2U PRBC since admission. Protonix 40mg IV daily. No signs of GIB at this time. Iron panel pending. - Daily CBC and BMP -Tele psych consult for SI - Full code Dietary Evaluation Review Comments: 1) Initiate Nepro tid 2) Initiate Nephro-Conner @ 1 tb qd 3) Encourage optimal PO intake 4) Follow-up with nephrology 5) Continue to monitor I&O, labs, and skin integrity Expected Outcomes/Goals: 1) appetite and labs to improve 2) f/u in 3-5 days Plan discussed with: Patient ALIDAGonzaloMARLIJOSEPHINE Maynard DO May 03, 2025 22:01
--- NOTE | 2025-05-03 22:55 | DVHPN2 ---
Progress Note - Dictate Date Seen: May 03, 2025 Medical Necessity Reason Pt with a Central, PICC or Fol: Yes The following are medically ne: Riley Catheter Reason for riley catheter: Bladder Retention/Obstruc Subjective Patient was seen and evaluated in follow up in the ICU. Patient is on 2 LPM NC. Patient reports feeling better today. Patient is tolerating diet without N/V. HGB 7.0, HCT 20.7, BUN 104, Bookmaker'S Clerk 8.44, CA 5.3, MG 1.3. vital signs Vital Sign Date Time Temp Pulse Resp B/P (MAP) Pulse Ox O2 Delivery O2 Flow Rate FiO2 05/03/25 20:00 84 05/03/25 20:00 24 99 Nasal Cannula* 2 28 05/03/25 18:45 106/62 (77) 05/03/25 12:52 97.5 97.5 Total Intake and Output 05/02/25 05/02/25 05/03/25 15:00 23:00 07:00 Intake Total 1103.75 ml 1896.25 ml 1780.00 ml Output Total 1800 ml 2300 ml Balance 1103.75 ml 96.25 ml -520.00 ml medications Current Medications Medications Dose Ordered Sig/Breanne Route Start Time Stop Time Status Last Admin Dose Admin Nitroglycerin 0.4 mg Q5MINP PRN SL 04/29/25 21:45 Morphine Sulfate 2 mg Q30M PRN IV 04/29/25 21:45 05/01/25 05:33 2 MG Norepinephrine Bitartrate 250 ml @ 3.75 mls/hr Q24H IV 04/30/25 04:00 05/02/25 16:51 3.75 MLS/HR Dextrose/Lactated Ringer's 1,000 ml @ 100 mls/hr Q10H IV 05/01/25 08:30 05/03/25 22:30 100 MLS/HR Ondansetron HCl 4 mg Q6HPRN PRN IV 05/01/25 10:15 Nystatin 1 applic BID TOP 05/01/25 22:00 05/03/25 22:24 1 APPLIC Pantoprazole Sodium 40 mg DAILY IV 05/01/25 14:30 05/03/25 11:13 40 MG Meropenem 50 ml @ 17 mls/hr QPM IV 05/03/25 18:00 05/03/25 18:45 17 MLS/HR Vancomycin HCl 0 ml @ 0 mls/hr UD IV 05/02/25 13:45 Enteral Nutritional Formula 240 ml QID PO 05/02/25 18:00 05/03/25 22:00 240 ML Calcium Acetate 1,334 mg TIDWMEALS PO 05/03/25 08:00 05/03/25 18:45 1,334 MG Epoetin Ulisses-epbx 10,000 unit TUTHSA SC 05/03/25 10:00 05/03/25 11:08 10,000 UNIT objective GENERAL: Alert and oriented x 3. No acute distress. EYES: PERRL, EOMI. Anicteric. HENT: Moist mucous membranes. LUNGS: Clear to auscultation bilaterally. CARDIOVASCULAR: Regular rate and rhythm. ABDOMEN: Soft, nontender and nondistended. EXTREMITIES: No edema. NEUROLOGIC: No focal neurological deficits. SKIN: Warm, dry. laboratory and microbiology Laboratory Tests 05/03/25 16:15 05/03/25 03:28 Test 05/03/25 16:15 Range/Units Serum Glucose 117 H 74-106 mg/dL Problem List Anion gap metabolic acidosis. Hypotension. Malnourishment. Dehydration. BRIAN Hypocalcemia. Hypernatremia. Hypokalemia. HFpEF, reduced systolic EF 30%, acute. Assessment/Plan Continued all current supportive medical care. Morphine for pain management. Vasopressors for hemodynamic support. GI prophylactics. Additional plan as per the hospital course. Critical care time of 45 minutes provided to include time spent evaluation of patient at bedside, when appropriate patient/family education for diagnosis, treatment plan, review of pertinent medical information and discussion of care with specialty providers and PCP. Dietary Evaluation Review Comments: 1) Initiate Nepro tid 2) Initiate Nephro-Conner @ 1 tb qd 3) Encourage optimal PO intake 4) Follow-up with nephrology 5) Continue to monitor I&O, labs, and skin integrity Expected Outcomes/Goals: 1) appetite and labs to improve 2) f/u in 3-5 days Plan discussed with: Patient EDD BUITRAGO MD May 03, 2025 22:55
[2025-05-04] VITALS (55 sets, daily range): BP systolic 81–120; BP diastolic 44–77; PULSE 69–115; RESP 14–32; TEMP 98–99.4; O2SAT 91–99
[2025-05-04 03:59] LABS: Hemoglobin 8.2 g/dL (13.5-17.5); Nucleated Red Blood Cells % 0.0 %
[2025-05-04 04:02] LABS: Hematocrit 24.0 % (41.0-53.0); Mean Corpuscular Hemoglobin 30.4 pg (28.0-32.0); Mean Corpuscular Volume 89.2 fL (80.0-100.0)
[2025-05-04 04:22] LABS: Alkaline Phosphatase 51 U/L (46-116); Anion Gap 13 (5-15); BUN/Creatinine Ratio 12.6 (10.0-20.0); Carbon Dioxide 24 mmol/L (20-31); Chloride 106 mmol/L (98-107); Potassium 3.6 mmol/L (3.5-5.1); Sodium 143 mmol/L (136-145)
[2025-05-04 04:31] LABS: Glucose 108 mg/dL (74-106)
[2025-05-04 04:32] LABS: Alanine Aminotransferase < 9 U/L (7-40); Albumin 3.2 g/dL (3.2-4.8); Bilirubin, Total 0.3 mg/dL (0.2-1.0); Total Protein 5.0 g/dL (5.7-8.2)
[2025-05-04 04:33] LABS: Blood Urea Nitrogen 102 mg/dL (9-23); Calcium 5.0 mg/dL (8.7-10.4)
[2025-05-04] MEDS: CALCIUM CHL 100MG/ML 1,000 MG in D5W 5% 100 ML IV ONE (08:42)
[2025-05-04 09:19] LABS: Urine Protein, UAD TRACE (Negative)
--- NOTE | 2025-05-04 10:38 | DVHPN2 ---
Progress Note - Dictate Date Seen: May 04, 2025 Medical Necessity Reason Pt with a Central, PICC or Fol: Yes The following are medically ne: Riley Catheter Reason for riley catheter: Bladder Retention/Obstruc Subjective Patient feeling improved. Notes he had trouble sleeping last night. vital signs Vital Sign Date Time Temp Pulse Resp B/P (MAP) Pulse Ox O2 Delivery O2 Flow Rate FiO2 05/04/25 06:30 72 20 103/60 (74) 98 05/04/25 06:00 Nasal Cannula* 2 28 05/04/25 05:00 98.0 98.0 Total Intake and Output 05/03/25 05/03/25 05/04/25 15:00 23:00 07:00 Intake Total 1815.00 ml 1884 ml 1700 ml Output Total 1550 ml 1750 ml Balance 1815.00 ml 334 ml -50 ml medications Current Medications Medications Dose Ordered Sig/Breanne Route Start Time Stop Time Status Last Admin Dose Admin Nitroglycerin 0.4 mg Q5MINP PRN SL 04/29/25 21:45 Morphine Sulfate 2 mg Q30M PRN IV 04/29/25 21:45 05/01/25 05:33 2 MG Norepinephrine Bitartrate 250 ml @ 3.75 mls/hr Q24H IV 04/30/25 04:00 05/02/25 16:51 3.75 MLS/HR Dextrose/Lactated Ringer's 1,000 ml @ 100 mls/hr Q10H IV 05/01/25 08:30 05/04/25 08:49 100 MLS/HR Ondansetron HCl 4 mg Q6HPRN PRN IV 05/01/25 10:15 Nystatin 1 applic BID TOP 05/01/25 22:00 05/03/25 22:24 1 APPLIC Pantoprazole Sodium 40 mg DAILY IV 05/01/25 14:30 05/03/25 11:13 40 MG Meropenem 50 ml @ 17 mls/hr QPM IV 05/03/25 18:00 05/03/25 18:45 17 MLS/HR Vancomycin HCl 0 ml @ 0 mls/hr UD IV 05/02/25 13:45 Enteral Nutritional Formula 240 ml QID PO 05/02/25 18:00 05/04/25 08:54 240 ML Calcium Acetate 1,334 mg TIDWMEALS PO 05/03/25 08:00 05/04/25 08:53 1,334 MG Epoetin Ulisses-epbx 10,000 unit TUTA SC 05/03/25 10:00 05/03/25 11:08 10,000 UNIT objective General appearance: Disheveled Respiratory: Lungs clear to auscultation. No wheezing, crackles Cardiovascular: Regular rate and rhythm, no murmurs. No edema Abdomen: Soft, nondistended, nontender, bowel sounds present MSK: Malnourished, muscle wasting Neuro: Alert, no neurological deficits Psych: SI thoughts : Rash in groin laboratory and microbiology Laboratory Tests 05/04/25 03:40 Test 05/04/25 03:40 Range/Units Serum Glucose 108 H 74-106 mg/dL Assessment/Plan 1. Hypotensive Shock due to Severe Dehydration 2. Malnourishment 3. BRIAN, VMN due to hypotension 4. HFpEF, reduced systolic EF 30%, acute 5. Sepsis Plan: - Nephrology consulted for BRIAN - Patient having good urine output, no indication for dialysis at this time -Strict I's and O's -Avoid nephrotoxic medications - Levophed off for 24 hours, downgrade to telemetry. - S/p Anecdote for Levophed infiltration in arm. - Ensure shakes 2 times daily due to malnourishment - No signs of fluid overload at this time. Will continue to monitor in the setting of CHF - Nystatin cream for rash in groin - Blood culture shows gram positive cocci in clusters, final speciation pending. Will start Merrem. ID, Dr. Torres consulted. Repeat culture pending. -PT eval pending. Plan to DC to SNF for PT once medically stabilized -Patient S/P 1 U PRBC 05/03 for total of 2U PRBC since admission. Protonix 40mg IV daily. No signs of GIB at this time. Iron panel pending. - Daily CBC and BMP -Tele psych consult for SI - Full code Dietary Evaluation Review Comments: 1) Initiate Nepro tid 2) Initiate Nephro-Conner @ 1 tb qd 3) Encourage optimal PO intake 4) Follow-up with nephrology 5) Continue to monitor I&O, labs, and skin integrity Expected Outcomes/Goals: 1) appetite and labs to improve 2) f/u in 3-5 days Plan discussed with: Patient JOSEPHINE CAN Aleyda REED May 04, 2025 10:38
--- NOTE | 2025-05-04 15:46 | DVHPN2 ---
Progress Note Date Seen: May 04, 2025 Medical Necessity Reason Pt with a Central, PICC or Fol: Yes The following are medically ne: Riley Catheter Reason for riley catheter: Bladder Retention/Obstruc Objective vital signs Vital Sign Date Time Temp Pulse Resp B/P (MAP) Pulse Ox O2 Delivery O2 Flow Rate FiO2 05/04/25 13:15 102 29 94 05/04/25 12:00 Nasal Cannula* 2 28 05/04/25 08:00 98.6 98.6 Total Intake and Output 05/03/25 05/03/25 05/04/25 15:00 23:00 07:00 Intake Total 1815.00 ml 1884 ml 1800 ml Output Total 1550 ml 1750 ml Balance 1815.00 ml 334 ml 50 ml medications Current Medications Medications Dose Ordered Sig/Breanne Route Start Time Stop Time Status Last Admin Dose Admin Nitroglycerin 0.4 mg Q5MINP PRN SL 04/29/25 21:45 Morphine Sulfate 2 mg Q30M PRN IV 04/29/25 21:45 05/01/25 05:33 2 MG Norepinephrine Bitartrate 250 ml @ 3.75 mls/hr Q24H IV 04/30/25 04:00 05/02/25 16:51 3.75 MLS/HR Dextrose/Lactated Ringer's 1,000 ml @ 100 mls/hr Q10H IV 05/01/25 08:30 05/04/25 08:49 100 MLS/HR Ondansetron HCl 4 mg Q6HPRN PRN IV 05/01/25 10:15 Nystatin 1 applic BID TOP 05/01/25 22:00 05/04/25 10:00 1 APPLIC Pantoprazole Sodium 40 mg DAILY IV 05/01/25 14:30 05/04/25 10:34 40 MG Meropenem 50 ml @ 17 mls/hr QPM IV 05/03/25 18:00 05/03/25 18:45 17 MLS/HR Vancomycin HCl 0 ml @ 0 mls/hr UD IV 05/02/25 13:45 Enteral Nutritional Formula 240 ml QID PO 05/02/25 18:00 05/04/25 08:54 240 ML Calcium Acetate 1,334 mg TIDWMEALS PO 05/03/25 08:00 05/04/25 08:53 1,334 MG Epoetin Ulisses-epbx 10,000 unit TUTHSA SC 05/03/25 10:00 05/03/25 11:08 10,000 UNIT Enteral Nutritional Formula 240 ml BIDWM PO 05/04/25 18:00 Examination: GENERAL:Abnormal, CVS:Normal, SKIN:Normal laboratory and microbiology Laboratory Tests 05/04/25 03:40 Test 05/04/25 03:40 Range/Units Serum Glucose 108 H 74-106 mg/dL Microbiology Date/Time Source Procedure Growth Status 05/03/25 08:19 Blood Blood Culture - Preliminary NO GROWTH AFTER 24 HOURS OF INCUBATION. Resulted 05/03/25 06:26 Nose MRSA Screen - Final Complete Problem List/Assessment/Plan Problem List/Assessment/Plan Acute kidney injury ATN plus obstructive etiology Unknown renal function baseline Anion gap metabolic acidosis Hypernatremia Hypokalemia Hypocalcemia Right renal stone anemia renal function is improving but has not normalized IVF PRBC PRN keep hb 8.0, epogen 3x a week phoslo w/ each meal , check phos tomorrow replace Mg, K monitor UOP metabolic clearance has not returned will require close monitoring for HD needs. no emergent HD indication at this time Plan discussed with: Patient Dietary Evaluation Review Comments: 1) Initiate Nepro tid 2) Initiate Nephro-Conner @ 1 tb qd 3) Encourage optimal PO intake 4) Follow-up with nephrology 5) Continue to monitor I&O, labs, and skin integrity Expected Outcomes/Goals: 1) appetite and labs to improve 2) f/u in 3-5 days Critical Care Time (mins): 33 KAYLEY DANIELS MD May 04, 2025 15:46
--- NOTE | 2025-05-04 16:20 | DVHINCON2 ---
Date of service: May 03, 2025 Family History: Patient reports no known family medical history. Allergies: Coded Allergies: NO KNOWN ALLERGIES (Unverified , 04/16/23) Home Meds Active Scripts Levetiracetam (KEPPRA TABLET) 500 Mg Tb, 500 MG PO BID for 30 Days, #60 TAB Prov:ANEESH SÁNCHEZ MD 05/07/25 Atorvastatin Calcium (Lipitor) 40 Mg Tab, 1 TAB PO QPM, #90 TAB 1 Refill Prov:ANEESH SÁNCHEZ MD 05/07/25 Aspirin (Aspir-Low) 81 Mg Tab, 81 MG PO DAILY for 30 Days, #30 TAB Prov:ANEESH SÁNCHEZ MD 05/07/25 Clindamycin Hcl (Clindamycin Hcl) 300 Mg Cap, 1 CAP PO TID, #30 CAP Prov:ANEESH SÁNCHEZ MD 05/07/25 Hydrocodone-Acetaminophen (Hydrocodone Bitartrate/AC 5-325 mg) 1 Tab Tab, 1 TAB PO Q6HP PRN for 7 Days, #28 TAB Prov:SANTINO LOVELACE PAC 04/16/23 Discontinued Scripts Ibuprofen (Ibuprofen) 600 Mg Tab, 1 TAB PO QID, #30 TAB Prov:SANTINO LOVELACE PAC 04/16/23 Cephalexin (KEFLEX CAPSULE) 250 Mg Cp, 1 CAP PO QID for 7 Days, #28 CAP Prov:SANTINO LOVELACE PAC 04/16/23 Acetaminophen (Acetaminophen Extra Stren) 500 Mg Tab, 500 MG PO Q6HP PRN for 10 Days, #40 TAB Prov:PRICILA NEELY BAKER HEAD 04/24/25 Methylprednisolone (Medrol Dosepak) 4 Mg Stan, 4 MG PO UD for 6 Days, #21 TAB UAD Prov:PRICILA NEELY BAKER HEAD 04/24/25 Current Medications Current Medications Medications (Trade) Dose Ordered Sig/Breanne Route PRN Reason Start Time Stop Time Status Last Admin Meropenem 50 ml @ 17 mls/hr QPM IV 05/03/25 18:00 05/03/25 18:45 Enteral Nutritional Formula (Ensure High Protein) 240 ml BIDWM PO 05/04/25 18:00 Vital Signs Vital Signs Date Time Temp Pulse Resp B/P (MAP) Pulse Ox O2 Delivery O2 Flow Rate FiO2 05/04/25 16:00 102 16 116/46 (69) 95 05/04/25 15:45 99.4 99.4 05/04/25 14:20 Nasal Cannula* 2 28 Labs/Diagnostic Data Labs Test 05/04/25 08:51 05/04/25 03:40 05/03/25 16:15 05/02/25 03:13 Range/Units Urine Color Colorless Yellow Urine Clarity Clear Clear Urine pH 6.0 5.0-9.0 Urine Specific [place] 1.010 1.001-1.035 Urine Protein Trace H Negative Urine Ketones Negative Negative Urine Blood 1+ H Negative /uL Urine Nitrite Negative Negative Urine Bilirubin Negative Negative Urine Urobilinogen Normal Negative mg/dL Urine Leukocyte Esterase Negative Negative /uL Urine RBC 4 0 - 3 /hpf Urine Microscopic WBC 4 H 0-3 /HPF Urine Squamous Epithelial Cells Few <5 /hpf Urine Bacteria Few H None Seen /hpf Urine Glucose Normal Normal mg/dL White Blood Count 9.1 4.4-10.8 10^3/uL Red Blood Count 2.69 L 4.5-5.90 10^6/uL Hemoglobin 8.2 #L 13.5-17.5 g/dL Hematocrit 24.0 #L 41.0-53.0 % Mean Corpuscular Volume 89.2 80.0-100.0 fL Mean Corpuscular Hemoglobin 30.4 28.0-32.0 pg Mean Corpuscular Hemoglobin Concent 34.1 32.0-36.0 g/dL Red Cell Distribution Width 14.2 11.8-14.3 % Platelet Count 106 L 140-450 10^3/uL Mean Platelet Volume 10.7 6.9-10.8 fL Neutrophils (%) (Auto) 83.7 H 37.0-80.0 % Lymphocytes (%) (Auto) 6.8 L 10.0-50.0 % Monocytes (%) (Auto) 7.1 0.0-12.0 % Eosinophils (%) (Auto) 1.9 0.0-7.0 % Basophils (%) (Auto) 0.5 0.0-2.0 % Neutrophils # (Auto) 7.6 1.6-8.6 10 ^3/uL Lymphocytes # (Auto) 0.6 0.4-5.4 10 ^3/uL Monocytes # (Auto) 0.6 0-1.3 10 ^3/uL Eosinophils # (Auto) 0.2 0-0.8 10 ^3/uL Basophils # (Auto) 0 0-0.2 10 ^3/uL Nucleated Red Blood Cells 0.0 % Sodium Level 143 136-145 mmol/L Potassium Level 3.6 3.5-5.1 mmol/L Chloride Level 106 98-107 mmol/L Carbon Dioxide Level 24 20-31 mmol/L Anion Gap 13 5-15 Blood Urea Nitrogen 102 *H 9-23 mg/dL Creatinine 8.11 H 0.700-1.30 mg/dL Glomerular Filtration Rate Calc 7 >90 mL/min BUN/Creatinine Ratio 12.6 10.0-20.0 Serum Glucose 108 H 74-106 mg/dL Calcium Level 5.0 *L 8.7-10.4 mg/dL Total Bilirubin 0.3 0.2-1.0 mg/dL Aspartate Amino Transferase (AST) 19 13-40 U/L Alanine Aminotransferase (ALT) < 9 7-40 U/L Alkaline Phosphatase 51 46-116 U/L Total Protein 5.0 L 5.7-8.2 g/dL Albumin 3.2 3.2-4.8 g/dL Random Vancomycin Level 18.3 H 5-10 ug/mL Magnesium Level 1.3 L 1.6-2.6 mg/dL Phosphorus Level 8.0 H 2.4-5.1 mg/dL Iron Level 64 L 65-175 ug/dL Total Iron Binding Capacity 176 L 250-425 ug/dL Percent Iron Saturation 36.4 20-55 % Test 05/01/25 07:12 04/30/25 11:36 04/30/25 11:32 04/30/25 10:59 Range/Units Beta-Hydroxybutyric Acid 1.308 H < 0.4 mmol/L Blood Gas Specimen Type Arterial Blood Gas Sample Site Right radial Blood Gas Patient Temperature 37.0 Arterial Blood Date Drawn [id number] Arterial Blood pH 7.430 7.350-7.450 Arterial Blood Partial Pressure CO2 21.5 L 35.0-48.0 mmHg Arterial Blood Partial Pressure O2 79.7 L 83.0-108.0 mmHg Arterial Blood HCO3 14.0 L 21.0-28.0 mmol/L Arterial Blood Oxygen Saturation 94.2 94.0-98.0 % Arterial Blood Base Excess -9.5 L -2.0-3.0 mmol/L Arterial Blood Oxyhemoglobin 92.2 L 94.0-98.0 % Arterial Blood Carboxyhemoglobin 1.4 0.5-1.5 % Arterial Blood Methemoglobin 0.7 0.0-1.5 % Forest Test Yes Blood Gas Total Hemoglobin 6.20 *L 13.5-17.5 g/dL Blood Gas Modality Room air FiO2 % 21.0 Blood Gas Critical Value Read Back Yes Blood Gas Notified Whom Dr. luna Blood Gas Notified Time [id number] Blood Gas Notified By Diego kwon, kimber Ionized Calcium <3.0 L 4.5-5.6 mg/dL Parathyroid Hormone (Intact) 626.4 H 18.4-80.1 pg/mL Test 04/29/25 23:59 04/29/25 22:30 04/29/25 21:02 04/29/25 19:25 Range/Units Urine Opiates Screen Neg NEGATIVE Urine Fentanyl Screen Neg NEGATIVE Urine Barbiturates Screen Neg NEGATIVE Urine Phencyclidine Screen Neg NEGATIVE Urine Amphetamines Screen Neg NEGATIVE Urine Benzodiazepines Screen Neg NEGATIVE Urine Cocaine Screen Neg NEGATIVE Urine Cannabinoids Screen Neg NEGATIVE Troponin I High Sensitivity 28 </=54 ng/L Blood Gas Spontaneous Rate 24 Prothrombin Time 10.9 9.3-11.8 sec Prothrombin Time INR 1.03 0.9-1.15 Lactic Acid Level 1.1 0.4-2.0 mmol/L Lipase 379 H 12-53 U/L Plasma/Serum Blood Alcohol < 3.0 <10 mg/dL Test 04/29/25 18:18 04/29/25 18:16 Range/Units Urine WBC Clumps Present None Seen /hpf Urine Amorphous Crystals Mod None Seen /hpf POC Glucose 120 H 70-106 mg/dl Microbiology Date/Time Source Procedure Growth Status 05/03/25 08:19 Blood Blood Culture - Preliminary NO GROWTH AFTER 24 HOURS OF INCUBATION. Resulted 05/03/25 06:26 Nose MRSA Screen - Final Complete Problems(with codes): (1) Aspiration into airway (2) Bacteremia (3) Community acquired pneumonia (4) Facial laceration (5) Facial contusion Plan/Recommendation ASSESSMENT AND PLAN: ID Problem List: \-- Altered mental status \-- Acute renal failure \-- Anemia \-- Sepsis/bacteremia, Staphylococcus hemolyticus \-- Pneumonia, likely aspiration \-- Stroke (acute infarcts right occipital lobe and right cerebellum) \-- Seizure activity \-- Kyphosis/scoliosis, severe Assessment Mr. Junior Streeter is a 70-year-old male with an unknown past medical history who presents with two months of weakness and altered mental status. Patient was noted to be a poor historian and was brought in by family due to concern for suicidal ideation. Initial labs revealed renal failure (BUN 151, creatinine 11.53), significant anemia (hemoglobin 6.7), mild leukocytosis (WBC 10.8), and hypocalcemia. Blood cultures were positive for Staphylococcus hemolyticus. He was hypotensive and required vasopressor support (Levofed). Sacral wound and mild dermatitis in the area were observed. Urine studies consistent with mild pyuria, negative for UTI. Imaging notable for severe scoliosis/kyphosis and degenerative vertebral changes; chest X-ray and CT demonstrated no consolidations but did show right perihilar changes and bilateral atelectasis. MRI brain showed acute infarcts in the right occipital lobe and cerebellum. Patient had seizure requiring IV Ativan. Platelet count, white count, and hemoglobin have stabilized after transfusion, and renal function is slowly improving, not yet requiring dialysis. Hospital course included empiric antibiotics (started on vancomycin, then switched to Zosyn; meropenem dose given for concern of BRIAN; monotherapy for pneumonia ongoing). Patient is now alert and oriented, remains incontinent, and is currently on 2L nasal cannula. Plan includes completion of 5-7 day antibiotic course, repeat blood cultures, with further evaluation for dialysis as indicated. Primary, neurology, and nephrology teams involved for management of ongoing issues. Plan: \-- Continue Zosyn for current infection management \-- Monitor closely for resolution of Staphylococcus bacteremia; repeat blood cultures recommended \-- Treat pneumonia (likely aspiration) with a 5-7 day course (consider ceftriaxone, Zosyn, or other appropriate agent) \-- Monitor and support renal function; nephrology to assess for need of renal replacement therapy \-- Monitor anemia/hematology labs; transfuse as needed \-- Neurology to manage stroke and seizure activity (IV Ativan as ordered) \-- Monitor hemodynamics; continue pressors if needed \-- Supportive care for skin wound and sacral dermatitis \-- Primary team to continue workup and management of hypertension, anemia, and other ongoing issues Isolation Precautions: Not specified Assessment and plan discussed with patient/family as above. Plan may be updated as new diagnostic or clinical information arises. See addenda as appropriate. Thank you for your consult. Please reach out to Infectious Disease with further questions or concerns. \ History: The patient's chart and medications were reviewed in detail; patient was seen and examined. History obtained from patient and family ([id number]); patient is a poor historian. Mr. Junior Streeter is a 70-year-old male with a reported history of weakness for two months and acute altered mental status; brought in for further evaluation after being found confused at home. Labwork on admission: \-- WBC 10.8 (peak 19, down to 10.2) \-- Hemoglobin 6.7 (transfused to 8) \-- Platelets 143 (recent: 108) \-- Sodium 146 \-- BUN 151 \-- Creatinine 11.53 \-- Total bilirubin 0.2 \-- ALT 9 \-- ASA 16 \-- Negative urine drug screen Course included hypotension requiring Levofed; staph bacteremia; renal failure attributed to obstructive etiology vs ATN; mild pyuria; no documented UTI. Mental status now improved. Noted seizure activity post-stroke. Imaging findings as described below. Review of Systems: A complete 10-system review of systems was completed and negative except as noted in the HPI or here. ROS: -CONSTITUTIONAL: Denies weight loss, fever, and chills (per available history). -HEENT: Not discussed. -RESPIRATORY: Not discussed. -CARDIOVASCULAR: Not discussed. -GASTROINTESTINAL: Not discussed. -GENITOURINARY: Incontinent. -MUSCULOSKELETAL: Not discussed. -SKIN: Not discussed except for sacral wound/dermatitis as above. -NEUROLOGICAL: Altered mental status; seizure activity; acute stroke. -PSYCHIATRIC: Presented after concerns for possible suicidal ideation (denies per current mental status). Past Medical History: Not provided in transcript. Past Surgical History: Not provided in transcript. Home Medications: Not provided in transcript. Allergies: Not provided in transcript. Family History: Not provided in transcript. Social History: Not provided in transcript. Objective: Vital Signs on Arrival: Temp: 97.5 F Pulse: 51 Respiratory rate: 15 Blood pressure: 100/52 SpO2: 96% on room air Most Recent Vital Signs: BP: 99/66 Supplemental oxygen: 2L nasal cannula Admission Weight: Not provided in transcript. Physical Exam: General: NAD Neck: Supple. No masses. HEENT: PERRL. Normal lids and conjunctiva. Moist mucous membranes. Oropharynx without lesions, exudates or excessive erythema. Normal appearance of the external aspects of the nose and ears. Heart: Regular rhythm, normal rate. No murmur. No lower extremity edema. Lungs: Normal respiratory effort. Clear to auscultation bilaterally. No wheezes. No crackles. Abdomen: Soft. Non-tender. Non-distended. No masses or abdominal hernia. Msk: No digital cyanosis. Normal strength and tone in all 4 limbs Skin: Warm and dry, no rashes. Sacral wound with mild dermatitis. Neuro: Alert. No facial droop or slurred speech. Extra-ocular movements intact. Sensation intact to soft touch in all 4 limbs. Psych: Appropriate mood. Full affect. Oriented to person, place, time, and situation. Lines: Central line in right neck. Muller catheter present. Peripheral IV: Not specified. Diagnostic Studies: Available diagnostic studies were reviewed personally. Significant relevant findings outlined below: Pertinent Imaging: \-- Chest X-ray: Prominent right perihilar markings; may be related to severe scoliosis. Repeat CXR on 04/29/25 showed worsening right airspace disease (pneumonia). \-- Renal ultrasound: Increased bilateral renal parenchymal echogenicity, diminished cortical thickness, simple left renal pelvic cyst, Muller in decompressed bladder. \-- CT chest/abdomen/pelvis: No significant pulmonary consolidation; bilateral atelectasis; severe thoracic kyphosis and anterior vertebral body compression; punctate renal calculi; multiple small gallstones; pancreatitis cannot be ruled out. \-- Head CT: Unremarkable. \-- Brain MRI: Acute infarcts in right occipital lobe and right cerebellum; no midline shift. \-- Carotid Doppler: Unable to evaluate right carotids; left carotid velocities normal. Laboratory Studies: \-- WBC: 10.8 (peak 19) \-- Hgb: 6.7 (to 8 after transfusion) \-- Platelets: 143 (then 108) \-- Sodium: 146 \-- BUN: 151 \-- Creatinine: 11.53 \-- Total bilirubin: 0.2 \-- ALT: 9 \-- ASA: 16 \-- Negative urine drug screen Urine: Mild pyuria, no nitrites or leukocyte esterase, negative for UTI. Blood cultures: Staphylococcus hemolyticus positive (monitor for clearance). \ Plan discussed with: Patient DAVE ELDRIDGE MD May 04, 2025 16:20
[2025-05-04] MEDS: MAGNESIUM OXIDE 400 MG TAB PO ONE (16:22)
[2025-05-04] MEDS: Ensure HIGH Protein Chocolate 8oz Bottle PO SCH (17:18)
--- NOTE | 2025-05-04 21:10 | DVHPN2 ---
Progress Note - Dictate Date Seen: May 04, 2025 Medical Necessity Reason Pt with a Central, PICC or Fol: Yes The following are medically ne: Riley Catheter Reason for riley catheter: Bladder Retention/Obstruc Subjective Patient was seen and evaluated in follow up in the ICU. Patient reports improvement. Reports having trouble sleeping overnight. 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 Prelim blood cultures showed no growth. vital signs Vital Sign Date Time Temp Pulse Resp B/P (MAP) Pulse Ox O2 Delivery O2 Flow Rate FiO2 05/04/25 08:00 104 28 95 Nasal Cannula* 2 28 05/04/25 06:30 103/60 (74) 05/04/25 05:00 98.0 98.0 Total Intake and Output 05/03/25 05/03/25 05/04/25 15:00 23:00 07:00 Intake Total 1815.00 ml 1884 ml 1800 ml Output Total 1550 ml 1750 ml Balance 1815.00 ml 334 ml 50 ml medications Current Medications Medications Dose Ordered Sig/Breanne Route Start Time Stop Time Status Last Admin Dose Admin Nitroglycerin 0.4 mg Q5MINP PRN SL 04/29/25 21:45 Morphine Sulfate 2 mg Q30M PRN IV 04/29/25 21:45 05/01/25 05:33 2 MG Norepinephrine Bitartrate 250 ml @ 3.75 mls/hr Q24H IV 04/30/25 04:00 05/02/25 16:51 3.75 MLS/HR Dextrose/Lactated Ringer's 1,000 ml @ 100 mls/hr Q10H IV 05/01/25 08:30 05/04/25 08:49 100 MLS/HR Ondansetron HCl 4 mg Q6HPRN PRN IV 05/01/25 10:15 Nystatin 1 applic BID TOP 05/01/25 22:00 05/04/25 10:00 1 APPLIC Pantoprazole Sodium 40 mg DAILY IV 05/01/25 14:30 05/04/25 10:34 40 MG Meropenem 50 ml @ 17 mls/hr QPM IV 05/03/25 18:00 05/03/25 18:45 17 MLS/HR Vancomycin HCl 0 ml @ 0 mls/hr UD IV 05/02/25 13:45 Enteral Nutritional Formula 240 ml QID PO 05/02/25 18:00 05/04/25 08:54 240 ML Calcium Acetate 1,334 mg TIDWMEALS PO 05/03/25 08:00 05/04/25 08:53 1,334 MG Epoetin Ulisses-epbx 10,000 unit TUTHSA SC 05/03/25 10:00 05/03/25 11:08 10,000 UNIT Enteral Nutritional Formula 240 ml BIDWM PO 05/04/25 18:00 objective GENERAL: Alert and oriented x 3. No acute distress. EYES: PERRL, EOMI. Anicteric. HENT: Moist mucous membranes. LUNGS: Clear to auscultation bilaterally. CARDIOVASCULAR: Regular rate and rhythm. ABDOMEN: Soft, nontender and nondistended. EXTREMITIES: No edema. NEUROLOGIC: No focal neurological deficits. SKIN: Warm, dry. laboratory and microbiology Laboratory Tests 05/04/25 03:40 Test 05/04/25 03:40 Range/Units Serum Glucose 108 H 74-106 mg/dL Problem List Anion gap metabolic acidosis. Hypotension. Malnourishment. Dehydration. BRIAN Hypocalcemia. Hypernatremia. Hypokalemia. HFpEF, reduced systolic EF 30%, acute. Assessment/Plan Continued all current supportive medical care. Nitro SL. GI prophylactics. IV antibiotics as ordered. Additional plan as per the hospital course. Critical care time of 45 minutes provided to include time spent evaluation of patient at bedside, when appropriate patient/family education for diagnosis, treatment plan, review of pertinent medical information and discussion of care with specialty providers and PCP. Dietary Evaluation Review Comments: 1) Initiate Nepro tid 2) Initiate Nephro-Conner @ 1 tb qd 3) Encourage optimal PO intake 4) Follow-up with nephrology 5) Continue to monitor I&O, labs, and skin integrity Expected Outcomes/Goals: 1) appetite and labs to improve 2) f/u in 3-5 days Plan discussed with: Patient EDD BUITRAGO MD May 04, 2025 12:49
[2025-05-04] MEDS: LORazepam 2MG/ML-1ML VIAL ONE (22:47)
[2025-05-04] MEDS: FUROSEMIDE 40 MG/4 ML VIAL ONE (22:52)
[2025-05-04] MEDS: LORazepam 2MG/ML-1ML VIAL IV ONE (23:00)
[2025-05-04] MEDS ORDERED: LORazepam 2MG/ML-1ML VIAL IV PRN ×2 (23:00→23:45)
--- NOTE | 2025-05-04 23:27 | DVH ---
CHEST RADIOGRAPH REASON FOR EXAM: sob COMPARISON: 05/01/2025 ; 04/29/2025 TECHNIQUE: One view of the chest is provided FINDINGS: Evaluation is degraded by patient rotation. The cardiomediastinal silhouette appears stabl e in size. There is a right neck catheter with the tip projecting over the right atrium. There is wor sening of right lower lung zone airspace disease. There is also airspace disease in right middle and upper lung zones. There is no significant pleural effusion. No pneumothorax is identified. Of the rig ht thoracic apex is excluded from view. IMPRESSION: Evaluation degraded by patient rotation. Worsening of right lower lung zone airspace disease and development of airspace disease in the right middle and upper lung zones.
--- NOTE | 2025-05-04 23:34 | DVH ---
COMPUTERIZED TOMOGRAPHY OF THE HEAD WITHOUT CONTRAST REASON FOR STUDY: Seizure. Altered level of consciousness. COMPARISON: CT HEAD WITHOUT CONTRAST on DOS: 04/16/23 TECHNIQUE: Helical tomographic scans were obtained through the brain. 2-D coronal and sagittal refor matted images are provided. Radiation optimization: All CT scans at this facility use at least one of these dose optimization techniques: Automated exposure control mA and/or kV adjustment per patient s ize (includes targeted exams where dose is matched to clinical indication) or iterative reconstructio n. RADIATION DOSE: CTDI: 68 mGy DLP: 2428 mGy-cm FINDINGS: Evaluation is suboptimal due to streak artifact and patient positioning. No suspicious intr acranial hyperdensity to suggest acute blood. There is mild diffuse cerebral atrophy with associated prominence of the ventricular system. There is no mass effect nor midline shift. There is no hydrocep halus. The suprasellar cistern is intact. The calvarium is intact. The visualized mastoid air cells a nd paranasal sinuses are clear. IMPRESSION: Evaluation is suboptimal due to streak artifact and patient positioning. No acute intracranial abnormality.
[2025-05-04 23:38] LABS: Chloride 106 mmol/L (98-107); Potassium 3.9 mmol/L (3.5-5.1); Sodium 143 mmol/L (136-145)
[2025-05-04 23:39] LABS: Anion Gap 17 (5-15)
[2025-05-04 23:41] LABS: Calcium 6.5 mg/dL (8.7-10.4); Carbon Dioxide 20 mmol/L (20-31)
[2025-05-04 23:45] LABS: BUN/Creatinine Ratio 11.3 (10.0-20.0)
[2025-05-04 23:50] LABS: Glucose 120 mg/dL (74-106); Magnesium 1.3 mg/dL (1.6-2.6)
[2025-05-04 23:53] LABS: Blood Urea Nitrogen 83 mg/dL (9-23)
[2025-05-05] VITALS (9 sets, daily range): BP systolic 91–108; BP diastolic 49–66; PULSE 59–131; RESP 16–20; TEMP 97.6–99.3; O2SAT 91–98
[2025-05-05 00:15] LABS: Alanine Aminotransferase 13.0 U/L (7-40); Albumin 3.5 g/dL (3.2-4.8); Alkaline Phosphatase 54.0 U/L (46-116); Bilirubin, Direct 0.2 mg/dL (<0.3); Bilirubin, Total 0.4 mg/dL (0.2-1.0)
[2025-05-05] MEDS: levETIRAcetam 500 mg/100ml 100 ML IV ONE (00:15)
[2025-05-05] MEDS: FUROSEMIDE 40 MG/4 ML VIAL IV ONE (00:16)
[2025-05-05 00:18] LABS: Total Protein 5.6 g/dL (5.7-8.2)
[2025-05-05] MEDS: MORPHINE SULFATE INJ 2 MG/ml SYRG IV PRN (02:15)
--- NOTE | 2025-05-05 06:48 | RESUS ---
CODE ASSIST ASSESSSMENT Initial Information Code Assist Time: 22:43 Location of Arrest: [facility] Room # 204 Provider Name Antony Jacobson NEWSPAPER VENDOR Time Notified: 22:43 Crash Cart Opened and Supplies: No Situation Staff concerned/worried, speci: Non-responsive, Change LOC, Seizures Situation comment: PATIENT NOTED WITH SEIZURE- LIKE ACTIVITY . LASTING 1 MINUTE, EYES ROLLED BACK, TEETH CLINCHED TIGHT, UNRESPONSIVE AND FOAMING AT THE MOUTH Background Background: Pt has history of seziures, no ativan prn avail Assessment Temperature (Fahrenheit): 99.0 Blood Pressure Systolic: 116 Blood Pressure Diastolic: 76 Respiratory Rate: 22 O2 Sat by Pulse Oximetry: 87 Bedside Blood Glucose: 124 Assessment comment: Lung sounds crackles Recommendations/Interventions Medications and Responses : Medication Time: 22:48 Medication Comment: Ativan 0.5mg IV given Lasix 40mg IV given Heart Rate: 119 EKG Rhythm: Sinus Tachycardia Blood Pressure Systolic: 116 Blood Pressure Diastolic: 76 Respiratory Rate: 18 O2 Sat by Pulse Oximetry: 96 Procedures: Accu check, CMP, O2 Mask/NC Other Interventions Taken to stat head CT and stat cxray Outcome Outcome: Problem Resolved (Patient taken for stat head CT) Team Members Team Members Antony Jensen [facility] Yusra Stringer Primary RN FATOUMATA SORIA May 05, 2025 06:48
--- NOTE | 2025-05-05 07:09 | DVHPN2 ---
Progress Note Date Seen: May 05, 2025 Has the PT tested + for MRSA If YES, has PT been informed?: No Medical Necessity Reason Pt with a Central, PICC or Fol: Yes The following are medically ne: Riley Catheter Reason for riley catheter: Bladder Retention/Obstruc Subjective Patient reports: No new complaints Review of Systems: HEENT:Normal, CVS:Normal, RESPIRATORY:Normal, GI:Normal Objective vital signs Vital Sign Date Time Temp Pulse Resp B/P (MAP) Pulse Ox O2 Delivery O2 Flow Rate FiO2 05/05/25 06:48 119 18 96 22 87 05/05/25 05:00 99.0 99/54 (69) 99.0 05/04/25 20:00 Nasal Cannula* 2 28 Total Intake and Output 05/04/25 05/04/25 05/05/25 15:00 23:00 07:00 Intake Total 910 ml 1700 ml 0 ml Output Total 2700 ml 950 ml Balance 910 ml -1000 ml -950 ml medications Current Medications Medications Dose Ordered Sig/Breanne Route Start Time Stop Time Status Last Admin Dose Admin Nitroglycerin 0.4 mg Q5MINP PRN SL 04/29/25 21:45 Morphine Sulfate 2 mg Q30M PRN IV 04/29/25 21:45 05/01/25 05:33 2 MG Norepinephrine Bitartrate 250 ml @ 3.75 mls/hr Q24H IV 04/30/25 04:00 05/02/25 16:51 3.75 MLS/HR Dextrose/Lactated Ringer's 1,000 ml @ 100 mls/hr Q10H IV 05/01/25 08:30 05/05/25 04:10 100 MLS/HR Ondansetron HCl 4 mg Q6HPRN PRN IV 05/01/25 10:15 Nystatin 1 applic BID TOP 05/01/25 22:00 05/04/25 21:33 1 APPLIC Pantoprazole Sodium 40 mg DAILY IV 05/01/25 14:30 05/04/25 10:34 40 MG Enteral Nutritional Formula 240 ml QID PO 05/02/25 18:00 05/04/25 17:18 240 ML Calcium Acetate 1,334 mg TIDWMEALS PO 05/03/25 08:00 05/04/25 17:55 1,334 MG Epoetin Ulisses-epbx 10,000 unit TUTHSA SC 05/03/25 10:00 05/03/25 11:08 10,000 UNIT Enteral Nutritional Formula 240 ml BIDWM PO 05/04/25 18:00 05/04/25 17:18 240 ML Lorazepam 1 mg Q5MINP PRN IV 05/04/25 23:00 Lorazepam 2 mg Q1HP PRN IV 05/04/25 23:45 Morphine Sulfate 2 mg Q4HPRN PRN IV 05/05/25 02:00 05/05/25 02:15 2 MG Examination: GENERAL:Normal, LUNGS:Normal, CVS:Normal, ABDOMEN:Normal laboratory and microbiology Test 05/05/25 06:32 Range/Units Serum Glucose Pending Problem List/Assessment/Plan Problem List/Assessment/Plan 1) Shock, resolved 2) Anemia s/p 2 units PRBC 3) BRIAN 4) HFrEF 30% 5) Staph bacteremia plan; downgraded to tele now, off levophed, on IV ABx Vanco/zosyn, repeat BCx negative, CXR shows worsening airspace Dz, labs pending this AM, nephrology on board for renal failure, neuro consulted for possible seizure, daily labs, supportive care, will follow along Plan discussed with: Other (n) Dietary Evaluation Review Comments: 1) Initiate Nepro tid 2) Initiate Nephro-Conner @ 1 tb qd 3) Encourage optimal PO intake 4) Follow-up with nephrology 5) Continue to monitor I&O, labs, and skin integrity Expected Outcomes/Goals: 1) appetite and labs to improve 2) f/u in 3-5 days ANEESH SÁNCHEZ MD May 05, 2025 07:09
[2025-05-05] MEDS ORDERED: VANCOMYCIN PER PHARMACY 0 MG IV SCH (07:15)
[2025-05-05] MEDS ORDERED: PIPERACILLIN-TAZOB 3.375GM 100 ML IV SCH (07:15)
[2025-05-05 07:31] LABS: Hematocrit 30.0 % (41.0-53.0); Hemoglobin 9.6 g/dL (13.5-17.5); Mean Corpuscular Hemoglobin 29.8 pg (28.0-32.0); Mean Corpuscular Volume 92.9 fL (80.0-100.0); Nucleated Red Blood Cells % 0.0 %
[2025-05-05 07:33] LABS: Alanine Aminotransferase 17 U/L (7-40); Albumin 3.7 g/dL (3.2-4.8); Alkaline Phosphatase 56 U/L (46-116); Anion Gap 14 (5-15); BUN/Creatinine Ratio 12.6 (10.0-20.0); Carbon Dioxide 22 mmol/L (20-31); Chloride 106 mmol/L (98-107); Potassium 3.8 mmol/L (3.5-5.1); Sodium 142 mmol/L (136-145); Total Protein 5.8 g/dL (5.7-8.2)
[2025-05-05 07:34] LABS: Bilirubin, Total 0.6 mg/dL (0.2-1.0)
[2025-05-05 07:39] LABS: Glucose 115 mg/dL (74-106)
[2025-05-05 07:40] LABS: Calcium 6.7 mg/dL (8.7-10.4); Magnesium 1.4 mg/dL (1.6-2.6)
[2025-05-05 07:42] LABS: Blood Urea Nitrogen 91 mg/dL (9-23)
[2025-05-05] MEDS ORDERED: VANCOMYCIN 1GM/200ML PM 200 ML IV ONE (08:00)
[2025-05-05] MEDS: PIPERACILLIN-TAZOB 3.375GM 100 ML IV ONE (08:58)
--- NOTE | 2025-05-05 10:34 | DVH ---
Procedure: CT CHEST WITHOUT CONTRAST Reason for study/Clinical History: pna Comparison Study: CT chest performed on 04/29/2025 Exam Date: 05/05/2025 09:48 AM TECHNIQUE: Multidetector CT of the chest was performed from the lung apices to the upper abdomen with out the use of intravenous contract. Coronal and sagittal multiplanar reformats were performed. Radiation Dose Information: CT Dose: CTDI volume is 434.42 mGy. Dose-length product is 2.54 mGy*cm The dose indicators for CT are the volume Computed Tomography (CT) Dose Index (CTDIvol) and the Dose Length Product (DLP), and are measured in units of mGy and mGy-cm, respectively. These indicators are not patient dose, but values generated from the CT scanner acquisition factors. The report includes radiation exposure data for exposures received during this examination. FINDINGS: Lower neck: Normal thyroid. Lungs: Respiratory motion limits evaluation. Bilateral lower lobe passive atelectasis. 5 mm lobe pul monary nodule. Pulmonary edema. Central airways: Patent. Pleura: Small bilateral pleural effusions, new since prior study. No pneumothorax. Heart/Vascular Structures: Right central venous catheter is present with the tip terminating in the s uperior vena cava. Cardiomegaly. No pericardial effusion. Dilated main pulmonary artery measuring 3. 4 cm in diameter. Normal caliber thoracic aorta. Lymph Nodes: No adenopathy Musculoskeletal: No acute osseous abnormality. Scoliosis. No acute fracture. Soft tissues: Normal. Upper abdomen: Gallstones. IMPRESSION: 1. Small bilateral pleural effusions new since prior chest CT from 04/29/2025. Bilateral lower lobe p assive atelectasis. Pulmonary edema. 2. 5 mm right lower lobe pulmonary nodule. 3. Cardiomegaly. 4. Dilated main pulmonary artery which can be seen in pulmonary arterial hypertension. 5. Gallstones. Radiation optimization: All CT scans at this facility use at least one of these dose optimization ryan hniques: automated exposure control mA and/or kV adjustment per patient size (includes targeted exam s where dose is matched to clinical indication) or iterative reconstruction.
[2025-05-05] MEDS: VANCOMYCIN 500mg/100mL 100 ML IV ONE (12:03)
--- NOTE | 2025-05-05 14:41 | DVHPN2 ---
Progress Note Date Seen: May 05, 2025 Has the PT tested + for MRSA If YES, has PT been informed?: No Medical Necessity Reason Pt with a Central, PICC or Fol: Yes The following are medically ne: Riley Catheter Reason for riley catheter: Bladder Retention/Obstruc Subjective Patient reports: Feels worse Objective vital signs Vital Sign Date Time Temp Pulse Resp B/P (MAP) Pulse Ox O2 Delivery O2 Flow Rate FiO2 05/05/25 13:00 97.7 120 19 98/64 (75) 93 97.7 05/05/25 08:05 Nasal Cannula* 2 28 Total Intake and Output 05/04/25 05/04/25 05/05/25 15:00 23:00 07:00 Intake Total 910 ml 1700 ml 0 ml Output Total 2700 ml 950 ml Balance 910 ml -1000 ml -950 ml medications Current Medications Medications Dose Ordered Sig/Breanne Route Start Time Stop Time Status Last Admin Dose Admin Nitroglycerin 0.4 mg Q5MINP PRN SL 04/29/25 21:45 Morphine Sulfate 2 mg Q30M PRN IV 04/29/25 21:45 05/01/25 05:33 2 MG Norepinephrine Bitartrate 250 ml @ 3.75 mls/hr Q24H IV 04/30/25 04:00 05/02/25 16:51 3.75 MLS/HR Dextrose/Lactated Ringer's 1,000 ml @ 100 mls/hr Q10H IV 05/01/25 08:30 05/05/25 11:54 100 MLS/HR Ondansetron HCl 4 mg Q6HPRN PRN IV 05/01/25 10:15 Nystatin 1 applic BID TOP 05/01/25 22:00 05/05/25 10:31 1 APPLIC Pantoprazole Sodium 40 mg DAILY IV 05/01/25 14:30 05/05/25 10:17 40 MG Enteral Nutritional Formula 240 ml QID PO 05/02/25 18:00 05/05/25 11:54 240 ML Calcium Acetate 1,334 mg TIDWMEALS PO 05/03/25 08:00 05/05/25 08:32 1,334 MG Epoetin Ulisses-epbx 10,000 unit TUTHSA SC 05/03/25 10:00 05/05/25 10:25 10,000 UNIT Enteral Nutritional Formula 240 ml BIDWM PO 05/04/25 18:00 05/05/25 08:59 240 ML Lorazepam 1 mg Q5MINP PRN IV 05/04/25 23:00 Lorazepam 2 mg Q1HP PRN IV 05/04/25 23:45 Morphine Sulfate 2 mg Q4HPRN PRN IV 05/05/25 02:00 05/05/25 07:33 2 MG Vancomycin HCl 0 ml @ 0 mls/hr UD IV 05/05/25 07:15 Piperacillin Sod/ Tazobactam Sod 100 ml @ 25 mls/hr Q12HR IV 05/05/25 22:00 Examination: GENERAL:Abnormal, LUNGS:Abnormal, CVS:Abnormal laboratory and microbiology Laboratory Tests 05/05/25 06:32 Test 05/05/25 06:32 Range/Units Serum Glucose 115 H 74-106 mg/dL Microbiology Date/Time Source Procedure Growth Status 05/03/25 08:19 Blood Blood Culture - Preliminary NO GROWTH AFTER 48 HOURS OF INCUBATION. Resulted 05/03/25 06:26 Nose MRSA Screen - Final Complete Problem List/Assessment/Plan Problem List/Assessment/Plan Acute kidney injury ATN plus obstructive etiology Unknown renal function baseline Hypocalcemia Right renal stone anemia sepsis due to bacteremia CXR now shows congestion will hold IVF today PRBC PRN keep hb 8.0, epogen 3x a week hold phos binders now normalized monitor UOP infectious w/u metabolic clearance has not returned will require close monitoring for HD needs. no emergent HD indication at this time Plan discussed with: Patient Dietary Evaluation Review Comments: 1) Initiate Nepro tid 2) Initiate Nephro-Conner @ 1 tb qd 3) Encourage optimal PO intake 4) Follow-up with nephrology 5) Continue to monitor I&O, labs, and skin integrity Expected Outcomes/Goals: 1) appetite and labs to improve 2) f/u in 3-5 days Total Time (mins): 26 KAYLEY DANIELS MD May 05, 2025 14:41
--- NOTE | 2025-05-05 17:33 | DVHINCON2 ---
Date of service: May 05, [address] Granda Reason for Consultation Acute respiratory failure History of Present Illness HPI 70 yo male, presented with generalized weakness and hypotension. pt initially required levophed drip for sepsis/bacteremia. downgraded from icu. pt still has right IJ c line for iv access. poor historian. CXR worse today Home Meds Active Scripts Hydrocodone-Acetaminophen (Hydrocodone Bitartrate/AC 5-325 mg) 1 Tab Tab, 1 TAB PO Q6HP PRN for 7 Days, #28 TAB Prov:RADU,SANTINO Graciela PAC 04/16/23 Ibuprofen (Ibuprofen) 600 Mg Tab, 1 TAB PO QID, #30 TAB Prov:SANTINO LOVELACE PAC 04/16/23 Cephalexin (KEFLEX CAPSULE) 250 Mg Cp, 1 CAP PO QID for 7 Days, #28 CAP Prov:SANTINO LOVELACE PAC 04/16/23 Discontinued Scripts Acetaminophen (Acetaminophen Extra Stren) 500 Mg Tab, 500 MG PO Q6HP PRN for 10 Days, #40 TAB Prov:PRICILA NEELY CONFLICTS ANALYST 04/24/25 Methylprednisolone (Medrol Dosepak) 4 Mg Stan, 4 MG PO UD for 6 Days, #21 TAB UAD Prov:PRICILA NEELY CONFLICTS ANALYST 04/24/25 Past Medical History Cardiac: HTN Pulmonary: No pertinent Hx Central Nervous System: No pertinent Hx GI: No pertinent Hx Hemotology/Oncology: No pertinent Hx Hepatobiliary: No pertinent Hx Psychiatric: No pertinent Hx Musculoskeletal: No pertinent Hx Infectious Disease: No peritnent Hx ENT: No pertinent Hx Renal/: CKD Endocrine: No pertinent Hx Dermatology: No pertinent Hx Past Surgical History: No pertinent Hx Patient Family History: Patient reports no known family medical history. Review of Systems Constitutional: Malaise, Weakness Ears, Nose, & Throat: No symptom reported Eyes: No symptom reported Pulmonary/Respiratory: Dyspnea, Cough Cardiovascular: No symptom reported Gastrointestinal: No symptom reported Genitourinary: No symptom reported Musculoskeletal: No symptom reported Skin: No symptom reported Psychiatric: No symptom reported Endocrine: No symptom reported Hemotologic/Lymphatic: No symptom reported H&P Exam Vital Signs Vital Signs Date Time Temp Pulse Resp B/P (MAP) Pulse Ox O2 Delivery O2 Flow Rate FiO2 05/05/25 17:00 98.5 123 20 91/61 (71) 98 98.5 05/05/25 08:05 Nasal Cannula* 2 28 General Appeara: Mild distress Head Exam: Normal inspection Neck Exam: Normal inspection Eye Exam: bilateral eye Normal inspection, bilateral eye PERRL Ear Exam: bilateral ear Auricle normal, bilateral ear Canal normal Nasal Exam: Normal inspection Mouth: Normal Inspection Pulmonary/Respiratory: Normal inspection, Normal breath sounds Cardiovascular/Chest: Normal inspection Peripheral Pulses: 4+ carotid (R), 4+ carotid (L) Abdominal Exam: Normal bowel sounds Labs/Xrays Labs Test 05/05/25 06:32 05/04/25 23:18 05/04/25 22:43 05/04/25 08:51 Range/Units White Blood Count 19.0 #H 4.4-10.8 10^3/uL Red Blood Count 3.23 L 4.5-5.90 10^6/uL Hemoglobin 9.6 #L 13.5-17.5 g/dL Hematocrit 30.0 #L 41.0-53.0 % Mean Corpuscular Volume 92.9 # 80.0-100.0 fL Mean Corpuscular Hemoglobin 29.8 28.0-32.0 pg Mean Corpuscular Hemoglobin Concent 32.0 32.0-36.0 g/dL Red Cell Distribution Width 14.6 H 11.8-14.3 % Platelet Count 108 L 140-450 10^3/uL Mean Platelet Volume 10.9 H 6.9-10.8 fL Neutrophils (%) (Auto) 92.8 H 37.0-80.0 % Lymphocytes (%) (Auto) 2.3 L 10.0-50.0 % Monocytes (%) (Auto) 4.5 0.0-12.0 % Eosinophils (%) (Auto) 0.1 0.0-7.0 % Basophils (%) (Auto) 0.3 0.0-2.0 % Neutrophils # (Auto) 17.7 H 1.6-8.6 10 ^3/uL Lymphocytes # (Auto) 0.4 0.4-5.4 10 ^3/uL Monocytes # (Auto) 0.9 0-1.3 10 ^3/uL Eosinophils # (Auto) 0 0-0.8 10 ^3/uL Basophils # (Auto) 0.1 0-0.2 10 ^3/uL Nucleated Red Blood Cells 0.0 % Sodium Level 142 136-145 mmol/L Potassium Level 3.8 3.5-5.1 mmol/L Chloride Level 106 98-107 mmol/L Carbon Dioxide Level 22 20-31 mmol/L Anion Gap 14 5-15 Blood Urea Nitrogen 91 *H 9-23 mg/dL Creatinine 7.22 H 0.700-1.30 mg/dL Glomerular Filtration Rate Calc 8 >90 mL/min BUN/Creatinine Ratio 12.6 10.0-20.0 Serum Glucose 115 H 74-106 mg/dL Calcium Level 6.7 L 8.7-10.4 mg/dL Phosphorus Level 3.4 2.4-5.1 mg/dL Magnesium Level 1.4 L 1.6-2.6 mg/dL Total Bilirubin 0.6 0.2-1.0 mg/dL Aspartate Amino Transferase (AST) 32 13-40 U/L Alanine Aminotransferase (ALT) 17 7-40 U/L Alkaline Phosphatase 56 46-116 U/L Total Protein 5.8 5.7-8.2 g/dL Albumin 3.7 3.2-4.8 g/dL Random Vancomycin Level 14.9 H 5-10 ug/mL Direct Bilirubin 0.2 <0.3 mg/dL POC Glucose 124 H 70-106 mg/dl Urine Color Colorless Yellow Urine Clarity Clear Clear Urine pH 6.0 5.0-9.0 Urine Specific [place] 1.010 1.001-1.035 Urine Protein Trace H Negative Urine Ketones Negative Negative Urine Blood 1+ H Negative /uL Urine Nitrite Negative Negative Urine Bilirubin Negative Negative Urine Urobilinogen Normal Negative mg/dL Urine Leukocyte Esterase Negative Negative /uL Urine RBC 4 0 - 3 /hpf Urine Microscopic WBC 4 H 0-3 /HPF Urine Squamous Epithelial Cells Few <5 /hpf Urine Bacteria Few H None Seen /hpf Urine Glucose Normal Normal mg/dL Test 05/02/25 03:13 05/01/25 07:12 04/30/25 11:36 04/30/25 11:32 Range/Units Iron Level 64 L 65-175 ug/dL Total Iron Binding Capacity 176 L 250-425 ug/dL Percent Iron Saturation 36.4 20-55 % Beta-Hydroxybutyric Acid 1.308 H < 0.4 mmol/L Blood Gas Specimen Type Arterial Blood Gas Sample Site Right radial Blood Gas Patient Temperature 37.0 Arterial Blood Date Drawn [id number] Arterial Blood pH 7.430 7.350-7.450 Arterial Blood Partial Pressure CO2 21.5 L 35.0-48.0 mmHg Arterial Blood Partial Pressure O2 79.7 L 83.0-108.0 mmHg Arterial Blood HCO3 14.0 L 21.0-28.0 mmol/L Arterial Blood Oxygen Saturation 94.2 94.0-98.0 % Arterial Blood Base Excess -9.5 L -2.0-3.0 mmol/L Arterial Blood Oxyhemoglobin 92.2 L 94.0-98.0 % Arterial Blood Carboxyhemoglobin 1.4 0.5-1.5 % Arterial Blood Methemoglobin 0.7 0.0-1.5 % Forest Test Yes Blood Gas Total Hemoglobin 6.20 *L 13.5-17.5 g/dL Blood Gas Modality Room air FiO2 % 21.0 Blood Gas Critical Value Read Back Yes Blood Gas Notified Whom Dr. luna Blood Gas Notified Time [id number] Blood Gas Notified By Diego kwon rrt Ionized Calcium <3.0 L 4.5-5.6 mg/dL Test 04/30/25 10:59 04/29/25 23:59 04/29/25 22:30 04/29/25 21:02 Range/Units Parathyroid Hormone (Intact) 626.4 H 18.4-80.1 pg/mL Urine Opiates Screen Neg NEGATIVE Urine Fentanyl Screen Neg NEGATIVE Urine Barbiturates Screen Neg NEGATIVE Urine Phencyclidine Screen Neg NEGATIVE Urine Amphetamines Screen Neg NEGATIVE Urine Benzodiazepines Screen Neg NEGATIVE Urine Cocaine Screen Neg NEGATIVE Urine Cannabinoids Screen Neg NEGATIVE Troponin I High Sensitivity 28 </=54 ng/L Blood Gas Spontaneous Rate 24 Test 04/29/25 19:25 04/29/25 18:18 Range/Units Prothrombin Time 10.9 9.3-11.8 sec Prothrombin Time INR 1.03 0.9-1.15 Lactic Acid Level 1.1 0.4-2.0 mmol/L Lipase 379 H 12-53 U/L Plasma/Serum Blood Alcohol < 3.0 <10 mg/dL Urine WBC Clumps Present None Seen /hpf Urine Amorphous Crystals Mod None Seen /hpf Microbiology Date/Time Source Procedure Growth Status 05/03/25 08:19 Blood Blood Culture - Preliminary NO GROWTH AFTER 48 HOURS OF INCUBATION. Resulted 05/03/25 06:26 Nose MRSA Screen - Final Complete Assessment/Plan Plan BRIAN/CKD fluid overload kyphoscoliosis acute hypoxxemic ressp failure pleural effusions/atelectases staph hemolyticus in blood plan suppl 02 as needed diurese monitor bun/Cr f/up with nephrology abx bronchodilators CT chest results pending Plan discussed with: Patient EVANGELINA WILLIS MD May 05, 2025 17:33
--- NOTE | 2025-05-05 21:37 | DVHPN2 ---
Progress Note - Dictate Date Seen: May 05, 2025 Has the PT tested + for MRSA If YES, has PT been informed?: No Medical Necessity Reason Pt with a Central, PICC or Fol: Yes The following are medically ne: Riley Catheter Reason for riley catheter: Bladder Retention/Obstruc Subjective Patient was seen and evaluated in follow up. Patient was downgraded to tele bed. Overnight, RR was called due to the patient exhibiting seizure-like activity lasting approx 1 minute. Patient was started on IV Keppra and was placed on seizure precautions. CT head showed no acute intracranial abnormality. WBC 19, HGB 9.6, HCT 30, BUN 91, FACILITIES PAINTER 7.22, CA 6.7. CT chest shows small bilateral pleural effusions new since prior chest CT from 04/29/2025, bilateral lower lobe passive atelectasis, pulmonary edema, 5 mm right lower lobe pulmonary nodule, cardiomegaly, dilated main pulmonary artery which can be seen in pulmonary arterial hypertension and gallstones. Telemetry reviewed. vital signs Vital Sign Date Time Temp Pulse Resp B/P (MAP) Pulse Ox O2 Delivery O2 Flow Rate FiO2 05/05/25 08:56 97.6 59 16 108/49 (68) 95 97.6 05/05/25 08:05 Nasal Cannula* 2 28 Total Intake and Output 05/04/25 05/04/25 05/05/25 15:00 23:00 07:00 Intake Total 910 ml 1700 ml 0 ml Output Total 2700 ml 950 ml Balance 910 ml -1000 ml -950 ml medications Current Medications Medications Dose Ordered Sig/Breanne Route Start Time Stop Time Status Last Admin Dose Admin Nitroglycerin 0.4 mg Q5MINP PRN SL 04/29/25 21:45 Morphine Sulfate 2 mg Q30M PRN IV 04/29/25 21:45 05/01/25 05:33 2 MG Norepinephrine Bitartrate 250 ml @ 3.75 mls/hr Q24H IV 04/30/25 04:00 05/02/25 16:51 3.75 MLS/HR Dextrose/Lactated Ringer's 1,000 ml @ 100 mls/hr Q10H IV 05/01/25 08:30 05/05/25 11:54 100 MLS/HR Ondansetron HCl 4 mg Q6HPRN PRN IV 05/01/25 10:15 Nystatin 1 applic BID TOP 05/01/25 22:00 05/05/25 10:31 1 APPLIC Pantoprazole Sodium 40 mg DAILY IV 05/01/25 14:30 05/05/25 10:17 40 MG Enteral Nutritional Formula 240 ml QID PO 05/02/25 18:00 05/05/25 11:54 240 ML Calcium Acetate 1,334 mg TIDWMEALS PO 05/03/25 08:00 05/05/25 08:32 1,334 MG Epoetin Ulisses-epbx 10,000 unit TUTHSA SC 05/03/25 10:00 05/05/25 10:25 10,000 UNIT Enteral Nutritional Formula 240 ml BIDWM PO 05/04/25 18:00 05/05/25 08:59 240 ML Lorazepam 1 mg Q5MINP PRN IV 05/04/25 23:00 Lorazepam 2 mg Q1HP PRN IV 05/04/25 23:45 Morphine Sulfate 2 mg Q4HPRN PRN IV 05/05/25 02:00 05/05/25 07:33 2 MG Vancomycin HCl 0 ml @ 0 mls/hr UD IV 05/05/25 07:15 Piperacillin Sod/ Tazobactam Sod 100 ml @ 25 mls/hr Q12HR IV 05/05/25 22:00 objective GENERAL: Alert and oriented x 3. No acute distress. EYES: PERRL, EOMI. Anicteric. HENT: Moist mucous membranes. LUNGS: Clear to auscultation bilaterally. CARDIOVASCULAR: Regular rate and rhythm. ABDOMEN: Soft, nontender and nondistended. EXTREMITIES: No edema. NEUROLOGIC: No focal neurological deficits. SKIN: Warm, dry. laboratory and microbiology Laboratory Tests 05/05/25 06:32 Test 05/05/25 06:32 Range/Units Serum Glucose 115 H 74-106 mg/dL Problem List Anion gap metabolic acidosis. Hypotension. Malnourishment. Dehydration. BRIAN Hypocalcemia. Hypernatremia. Hypokalemia. HFpEF, reduced systolic EF 30%, acute. Assessment/Plan Continued all current supportive medical care. Nitro SL. GI prophylactics. IV antibiotics as ordered. Morphine for pain management. Additional plan as per the hospital course. Dietary Evaluation Review Comments: 1) Initiate Nepro tid 2) Initiate Nephro-Conner @ 1 tb qd 3) Encourage optimal PO intake 4) Follow-up with nephrology 5) Continue to monitor I&O, labs, and skin integrity Expected Outcomes/Goals: 1) appetite and labs to improve 2) f/u in 3-5 days Plan discussed with: Patient EDD BUITRAGO MD May 05, 2025 13:04
[2025-05-05] MEDS: PIPERACILLIN-TAZOB 3.375GM 100 ML IV SCH (21:49)
--- NOTE | 2025-05-05 22:48 | DVHINCON2 ---
Date of service: May 05, 2025 Referring Physician Antony Reason for Consultation Seizure History of Present Illness Mr. Seymour is a 70 years old gentleman with a history of scoliosis, chronic back pain, he was admitted to [facility] on 04/29/2025 with a chief complaint of general weakness. At this time, he is awake, oriented to person, place, he knows the month, but says it is 2025, he has reasonable social skills, no aphasia, but his speech is slurry, and he is a poor historian, after interviewing him, I have also intubated his ovilhqv-op-pyp, but he is not a good historian either. I have also talked to his nurse from last night and this night. The summary is the information I obtained from him For several weeks, the patient has been very weak, he could not get up, he had a lot of pain in the back, but he did not have chills, fever, nausea, vomiting or other acute illness Last night, the patient has had a witnessed seizure, according to his nurse last night, he was company nonresponsive, eyes rolling back, shaking all over body, t eeth clenched tightly. His brother in law denies history of seizure on him, and his home medication did not include seizure medication All his life he has slurred speech, his [id number] is not aware of the etiology UDS, 04/29/2025: Negative Urinalysis, 04/29/2025: WBC: Present, urine leukocyte esterase: Negative ABG, 04/29/2025: Metabolic acidosis WBC/HB/PLT/MCV, 05/05/2025: 19/9.6/108/92.9 BUN/CR, 04/29/2025: 157/12.33, 05/01/2025: 144/11.33, 05/05/25: 90 1/7.22 Liver function tests, 04/29/2025: Unremarkable Beta hydroxybutyric acid, 05/01/25: 10.3/8 Ca 04/29/25: 5.5, 04/30/2025: 4.9, 05/02/2025: 5.3, 05/04/25: 5, 05/05/2025: 6.7 Chest x-ray, 04/29/2025: Prominent right perihilar markings. This maybe secondary to the severe scoliosis. There are no prior studies for comparison. CT head, 05/04/2025: Evaluation is suboptimal due to streak artifact and patient positioning. No acute intracranial abnormality. Past Medical History Scoliosis, chronic back pain, no stroke, no multiple sclerosis Past Surgical History Hernia repair Family History: Patient reports no known family medical history. Family History Kidney disease Social History No history of smoking, drug or alcohol abuse Allergies: Coded Allergies: NO KNOWN ALLERGIES (Unverified , 04/16/23) Home Meds Active Scripts Hydrocodone-Acetaminophen (Hydrocodone Bitartrate/AC 5-325 mg) 1 Tab Tab, 1 TAB PO Q6HP PRN for 7 Days, #28 TAB Prov:SANTINO LOVELACE PAC 04/16/23 Ibuprofen (Ibuprofen) 600 Mg Tab, 1 TAB PO QID, #30 TAB Prov:SANTINO LOVLEACE PAC 04/16/23 Cephalexin (KEFLEX CAPSULE) 250 Mg Cp, 1 CAP PO QID for 7 Days, #28 CAP Prov:SANTINO LOVELACE PAC 04/16/23 Discontinued Scripts Acetaminophen (Acetaminophen Extra Stren) 500 Mg Tab, 500 MG PO Q6HP PRN for 10 Days, #40 TAB Prov:PRICILA NEELY BLOOD COLLECTOR 04/24/25 Methylprednisolone (Medrol Dosepak) 4 Mg Stan, 4 MG PO UD for 6 Days, #21 TAB UAD Prov:PRICILA NEELY BLOOD COLLECTOR 04/24/25 Current Medications Current Medications Medications (Trade) Dose Ordered Sig/Breanne Route PRN Reason Start Time Stop Time Status Last Admin Lorazepam (Ativan Inj) 1 mg Q5MINP PRN IV SEIZURES 05/04/25 23:00 Lorazepam (Ativan Inj) 2 mg Q1HP PRN IV ANXIETY 05/04/25 23:45 Morphine Sulfate 2 mg Q4HPRN PRN IV SEVERE PAIN (7-10 PAIN SCALE) 05/05/25 02:00 05/05/25 21:51 Vancomycin HCl 0 ml @ 0 mls/hr UD IV 05/05/25 07:15 Piperacillin Sod/ Tazobactam Sod 100 ml @ 25 mls/hr Q12HR IV 05/05/25 07:15 05/05/25 07:58 DC Piperacillin Sod/ Tazobactam Sod 100 ml @ 25 mls/hr Q12HR IV 05/05/25 22:00 05/05/25 21:49 Review of Systems As above, the other systems are negative Vital Signs Vital Signs Date Time Temp Pulse Resp B/P (MAP) Pulse Ox O2 Delivery O2 Flow Rate FiO2 05/05/25 21:51 129 19 101/68 05/05/25 17:00 98.5 98 98.5 05/05/25 08:05 Nasal Cannula* 2 28 Physical Exam GENERAL EXAM: General: the patient is well developed and nourished. No acute distress. HEENT: Normocephalic, neck is supple, no carotid bruits. No mass. RESPIRATORY: Normal respiratory effort with symmetrical lung expansion. Lungs clear to auscultation. CARDIOVASCULAR: Regular rate and rhythm with no murmurs. S1, S2. ABDOMEN: Soft, nontender, normal bowel sound NEUROLOGICAL: MENTAL STATUS: Awake and alert. Oriented to person, place, he knows the month, but he said it was 2025 SPEECH, LANGUAGE, HIGHER CORTICAL FUNCTION: no aphasia but he has slurry speech CRANIAL NERVES: #2: Intact visual clark to confrontation. #3,4,6: Pupils are equal, round and reactive. EOMs full and conjugate.No nystagmus. #5: Facial sensation intact in all three divisions bilaterally. Mandibular strength intact. #7: Facial muscles symmetrical and strength intact. #8: Hearing grossly normal to voice. #9,10: Uvula and soft palate rise in the midline. Swallow and voice are normal. #11: Trapezius and sternomastoid strength intact bilaterally. #12: Tongue midline. No fasciculations or atrophy. SENSATION: Sensation to touch and pinprick is unremarkable MOTOR: Normal tone in the upper and lower extremity. Normal muscle bulk. No fasciculations. No abnormal movements or posturing. Muscle strength of the major groups in the upper extremities is 4/5. Muscle strength of the major groups in the lower extremities is 2/5. REFLEXES: Deep tendon reflexes is increased in the left knee. No pathological reflexes. CEREBELLAR/COORDINATION: Finger to nose is showed mild bilateral intentional tremors GAIT/STATION: deferred. Labs/Diagnostic Data Labs Test 05/05/25 06:32 05/04/25 23:18 05/04/25 22:43 05/04/25 08:51 Range/Units White Blood Count 19.0 #H 4.4-10.8 10^3/uL Red Blood Count 3.23 L 4.5-5.90 10^6/uL Hemoglobin 9.6 #L 13.5-17.5 g/dL Hematocrit 30.0 #L 41.0-53.0 % Mean Corpuscular Volume 92.9 # 80.0-100.0 fL Mean Corpuscular Hemoglobin 29.8 28.0-32.0 pg Mean Corpuscular Hemoglobin Concent 32.0 32.0-36.0 g/dL Red Cell Distribution Width 14.6 H 11.8-14.3 % Platelet Count 108 L 140-450 10^3/uL Mean Platelet Volume 10.9 H 6.9-10.8 fL Neutrophils (%) (Auto) 92.8 H 37.0-80.0 % Lymphocytes (%) (Auto) 2.3 L 10.0-50.0 % Monocytes (%) (Auto) 4.5 0.0-12.0 % Eosinophils (%) (Auto) 0.1 0.0-7.0 % Basophils (%) (Auto) 0.3 0.0-2.0 % Neutrophils # (Auto) 17.7 H 1.6-8.6 10 ^3/uL Lymphocytes # (Auto) 0.4 0.4-5.4 10 ^3/uL Monocytes # (Auto) 0.9 0-1.3 10 ^3/uL Eosinophils # (Auto) 0 0-0.8 10 ^3/uL Basophils # (Auto) 0.1 0-0.2 10 ^3/uL Nucleated Red Blood Cells 0.0 % Sodium Level 142 136-145 mmol/L Potassium Level 3.8 3.5-5.1 mmol/L Chloride Level 106 98-107 mmol/L Carbon Dioxide Level 22 20-31 mmol/L Anion Gap 14 5-15 Blood Urea Nitrogen 91 *H 9-23 mg/dL Creatinine 7.22 H 0.700-1.30 mg/dL Glomerular Filtration Rate Calc 8 >90 mL/min BUN/Creatinine Ratio 12.6 10.0-20.0 Serum Glucose 115 H 74-106 mg/dL Calcium Level 6.7 L 8.7-10.4 mg/dL Phosphorus Level 3.4 2.4-5.1 mg/dL Magnesium Level 1.4 L 1.6-2.6 mg/dL Total Bilirubin 0.6 0.2-1.0 mg/dL Aspartate Amino Transferase (AST) 32 13-40 U/L Alanine Aminotransferase (ALT) 17 7-40 U/L Alkaline Phosphatase 56 46-116 U/L Total Protein 5.8 5.7-8.2 g/dL Albumin 3.7 3.2-4.8 g/dL Random Vancomycin Level 14.9 H 5-10 ug/mL Direct Bilirubin 0.2 <0.3 mg/dL POC Glucose 124 H 70-106 mg/dl Urine Color Colorless Yellow Urine Clarity Clear Clear Urine pH 6.0 5.0-9.0 Urine Specific [place] 1.010 1.001-1.035 Urine Protein Trace H Negative Urine Ketones Negative Negative Urine Blood 1+ H Negative /uL Urine Nitrite Negative Negative Urine Bilirubin Negative Negative Urine Urobilinogen Normal Negative mg/dL Urine Leukocyte Esterase Negative Negative /uL Urine RBC 4 0 - 3 /hpf Urine Microscopic WBC 4 H 0-3 /HPF Urine Squamous Epithelial Cells Few <5 /hpf Urine Bacteria Few H None Seen /hpf Urine Glucose Normal Normal mg/dL Test 05/02/25 03:13 05/01/25 07:12 04/30/25 11:36 04/30/25 11:32 Range/Units Iron Level 64 L 65-175 ug/dL Total Iron Binding Capacity 176 L 250-425 ug/dL Percent Iron Saturation 36.4 20-55 % Beta-Hydroxybutyric Acid 1.308 H < 0.4 mmol/L Blood Gas Specimen Type Arterial Blood Gas Sample Site Right radial Blood Gas Patient Temperature 37.0 Arterial Blood Date Drawn [id number] Arterial Blood pH 7.430 7.350-7.450 Arterial Blood Partial Pressure CO2 21.5 L 35.0-48.0 mmHg Arterial Blood Partial Pressure O2 79.7 L 83.0-108.0 mmHg Arterial Blood HCO3 14.0 L 21.0-28.0 mmol/L Arterial Blood Oxygen Saturation 94.2 94.0-98.0 % Arterial Blood Base Excess -9.5 L -2.0-3.0 mmol/L Arterial Blood Oxyhemoglobin 92.2 L 94.0-98.0 % Arterial Blood Carboxyhemoglobin 1.4 0.5-1.5 % Arterial Blood Methemoglobin 0.7 0.0-1.5 % Forest Test Yes Blood Gas Total Hemoglobin 6.20 *L 13.5-17.5 g/dL Blood Gas Modality Room air FiO2 % 21.0 Blood Gas Critical Value Read Back Yes Blood Gas Notified Whom Dr. luna Blood Gas Notified Time [id number] Blood Gas Notified By Diego kwon, kimber Ionized Calcium <3.0 L 4.5-5.6 mg/dL Test 04/30/25 10:59 04/29/25 23:59 04/29/25 22:30 04/29/25 21:02 Range/Units Parathyroid Hormone (Intact) 626.4 H 18.4-80.1 pg/mL Urine Opiates Screen Neg NEGATIVE Urine Fentanyl Screen Neg NEGATIVE Urine Barbiturates Screen Neg NEGATIVE Urine Phencyclidine Screen Neg NEGATIVE Urine Amphetamines Screen Neg NEGATIVE Urine Benzodiazepines Screen Neg NEGATIVE Urine Cocaine Screen Neg NEGATIVE Urine Cannabinoids Screen Neg NEGATIVE Troponin I High Sensitivity 28 </=54 ng/L Blood Gas Spontaneous Rate 24 Test 04/29/25 19:25 04/29/25 18:18 Range/Units Prothrombin Time 10.9 9.3-11.8 sec Prothrombin Time INR 1.03 0.9-1.15 Lactic Acid Level 1.1 0.4-2.0 mmol/L Lipase 379 H 12-53 U/L Plasma/Serum Blood Alcohol < 3.0 <10 mg/dL Urine WBC Clumps Present None Seen /hpf Urine Amorphous Crystals Mod None Seen /hpf Microbiology Date/Time Source Procedure Growth Status 05/03/25 08:19 Blood Blood Culture - Preliminary NO GROWTH AFTER 48 HOURS OF INCUBATION. Resulted 05/03/25 06:26 Nose MRSA Screen - Final Complete Assessment New onset seizure activity, likely had grand mal seizure Slurred speech, Scoliosis, chronic pain syndrome ? Hyperreflexia in the left knee Plan/Recommendation Monitoring Supportive treatment Telemetry EEG MR brain scan Ativan for seizure breakthrough Hold off preventive seizure treatment for the time being GI prophylaxis Social service on case RE living condition More recommendation per clinical course Prognosis: Poor This medical document was created using an electronic medical record system with [employer] system. Although this document has been carefully reviewed, there may still be some phonetic and typographical errors. These areas are purely typographical due to imperfections of the software programs, and do not reflect any compromise in the patient's medical care. Plan discussed with: Other GHULAM REYNOSO MD May 05, 2025 22:48
[2025-05-05] MEDS ORDERED: LORazepam 2MG/ML-1ML VIAL IV PRN (23:30)
[2025-05-06] VITALS (11 sets, daily range): BP systolic 86–138; BP diastolic 46–121; PULSE 53–131; RESP 18–22; TEMP 97.8–100.4; O2SAT 93–97
--- NOTE | 2025-05-06 06:58 | DVHPN2 ---
Progress Note Date Seen: May 06, 2025 Has the PT tested + for MRSA If YES, has PT been informed?: No Medical Necessity Reason Pt with a Central, PICC or Fol: Yes The following are medically ne: Riley Catheter Reason for riley catheter: Bladder Retention/Obstruc Subjective Patient reports: Other Review of Systems: HEENT:Normal, CVS:Abnormal, RESPIRATORY:Normal Objective vital signs Vital Sign Date Time Temp Pulse Resp B/P (MAP) Pulse Ox O2 Delivery O2 Flow Rate FiO2 05/06/25 05:00 98.9 117 19 103/66 (78) 96 98.9 05/05/25 20:00 Nasal Cannula* 2 28 Total Intake and Output 05/05/25 05/05/25 05/06/25 14:59 22:59 06:59 Intake Total 1150 ml 350 ml 300 ml Output Total 950 ml 900 ml Balance 1150 ml -600 ml -600 ml medications Current Medications Medications Dose Ordered Sig/Breanne Route Start Time Stop Time Status Last Admin Dose Admin Nitroglycerin 0.4 mg Q5MINP PRN SL 04/29/25 21:45 Morphine Sulfate 2 mg Q30M PRN IV 04/29/25 21:45 05/01/25 05:33 2 MG Norepinephrine Bitartrate 250 ml @ 3.75 mls/hr Q24H IV 04/30/25 04:00 05/02/25 16:51 3.75 MLS/HR Ondansetron HCl 4 mg Q6HPRN PRN IV 05/01/25 10:15 Nystatin 1 applic BID TOP 05/01/25 22:00 05/05/25 21:47 1 APPLIC Pantoprazole Sodium 40 mg DAILY IV 05/01/25 14:30 05/05/25 10:17 40 MG Enteral Nutritional Formula 240 ml QID PO 05/02/25 18:00 05/05/25 21:50 240 ML Epoetin Ulisses-epbx 10,000 unit TUTHSA SC 05/03/25 10:00 05/05/25 10:25 10,000 UNIT Enteral Nutritional Formula 240 ml BIDWM PO 05/04/25 18:00 05/05/25 18:16 240 ML Lorazepam 1 mg Q5MINP PRN IV 05/04/25 23:00 Lorazepam 2 mg Q1HP PRN IV 05/04/25 23:45 Morphine Sulfate 2 mg Q4HPRN PRN IV 05/05/25 02:00 05/05/25 21:51 2 MG Vancomycin HCl 0 ml @ 0 mls/hr UD IV 05/05/25 07:15 Piperacillin Sod/ Tazobactam Sod 100 ml @ 25 mls/hr Q12HR IV 05/05/25 22:00 05/05/25 21:49 25 MLS/HR Lorazepam 1 mg ONCE PRN IV 05/05/25 23:30 Examination: GENERAL:Normal, LUNGS:Normal, CVS:Normal, ABDOMEN:Normal laboratory and microbiology Laboratory Tests 05/05/25 06:32 Test 05/05/25 06:32 Range/Units Serum Glucose 115 H 74-106 mg/dL Problem List/Assessment/Plan Problem List/Assessment/Plan 1) Shock, resolved 2) Anemia s/p 2 units PRBC 3) BRIAN 4) HFrEF 30% 5) Staph bacteremia plan; 05/05-----downgraded to tele now, off levophed, on IV ABx Vanco/zosyn, repeat BCx negative, CXR shows worsening airspace Dz, labs pending this AM, nephrology on board for renal failure, neuro consulted for possible seizure, daily labs, supportive care, will follow along 05/06-----remains on tele, neurology was consulted for possible seizure thus EEG and brain MRI was ordered, on IV ABx, labs for this AM still need to be drawn, nephrology on board and no HD indicated at this time, repeat BCx are negative, will await for AM labs and follow up, continue all care, will follow along medically Plan discussed with: Other (n) Dietary Evaluation Review Comments: 1) Initiate Nepro tid 2) Initiate Nephro-Conner @ 1 tb qd 3) Encourage optimal PO intake 4) Follow-up with nephrology 5) Continue to monitor I&O, labs, and skin integrity Expected Outcomes/Goals: 1) appetite and labs to improve 2) f/u in 3-5 days ANEESH SÁNCHEZ MD May 06, 2025 06:57
[2025-05-06 07:31] LABS: Hematocrit 25.0 % (41.0-53.0); Hemoglobin 8.3 g/dL (13.5-17.5); Mean Corpuscular Hemoglobin 30.1 pg (28.0-32.0); Mean Corpuscular Volume 90.7 fL (80.0-100.0); Nucleated Red Blood Cells % 0.0 %
[2025-05-06 07:55] LABS: Alanine Aminotransferase 16 U/L (7-40); Alkaline Phosphatase 51 U/L (46-116); Anion Gap 17 (5-15); BUN/Creatinine Ratio 14.1 (10.0-20.0); Carbon Dioxide 22 mmol/L (20-31); Chloride 105 mmol/L (98-107); Potassium 3.8 mmol/L (3.5-5.1); Sodium 144 mmol/L (136-145)
[2025-05-06 07:56] LABS: Bilirubin, Total 0.5 mg/dL (0.2-1.0)
[2025-05-06 07:58] LABS: Chloride 106 mmol/L (98-107); Potassium 3.7 mmol/L (3.5-5.1); Sodium 143 mmol/L (136-145)
[2025-05-06 07:58] LABS: Albumin 3.0 g/dL (3.2-4.8); Calcium 6.2 mg/dL (8.7-10.4); Glucose 112 mg/dL (74-106); Total Protein 4.7 g/dL (5.7-8.2)
[2025-05-06 07:59] LABS: Anion Gap 15 (5-15); Carbon Dioxide 22 mmol/L (20-31)
[2025-05-06 08:01] LABS: Blood Urea Nitrogen 101 mg/dL (9-23)
[2025-05-06 08:01] LABS: Calcium 6.5 mg/dL (8.7-10.4)
[2025-05-06 08:04] LABS: BUN/Creatinine Ratio 13.2 (10.0-20.0)
[2025-05-06 08:05] LABS: Glucose 114 mg/dL (74-106)
[2025-05-06 08:09] LABS: Blood Urea Nitrogen 94 mg/dL (9-23)
--- NOTE | 2025-05-06 10:17 | DVHPN2 ---
Progress Note - Dictate Date Seen: May 06, 2025 Has the PT tested + for MRSA If YES, has PT been informed?: No Medical Necessity Reason Pt with a Central, PICC or Fol: Yes The following are medically ne: Riley Catheter Reason for riley catheter: Bladder Retention/Obstruc vital signs Vital Sign Date Time Temp Pulse Resp B/P (MAP) Pulse Ox O2 Delivery O2 Flow Rate FiO2 05/06/25 09:00 99.8 53 20 86/46 (59) 93 99.8 05/05/25 20:00 Nasal Cannula* 2 28 Total Intake and Output 05/05/25 05/05/25 05/06/25 15:00 23:00 07:00 Intake Total 1150 ml 350 ml 600 ml Output Total 950 ml 1800 ml Balance 1150 ml -600 ml -1200 ml medications Current Medications Medications Dose Ordered Sig/Breanne Route Start Time Stop Time Status Last Admin Dose Admin Nitroglycerin 0.4 mg Q5MINP PRN SL 04/29/25 21:45 Morphine Sulfate 2 mg Q30M PRN IV 04/29/25 21:45 05/01/25 05:33 2 MG Norepinephrine Bitartrate 250 ml @ 3.75 mls/hr Q24H IV 04/30/25 04:00 05/02/25 16:51 3.75 MLS/HR Ondansetron HCl 4 mg Q6HPRN PRN IV 05/01/25 10:15 Nystatin 1 applic BID TOP 05/01/25 22:00 05/06/25 09:35 1 APPLIC Pantoprazole Sodium 40 mg DAILY IV 05/01/25 14:30 05/06/25 09:32 40 MG Enteral Nutritional Formula 240 ml QID PO 05/02/25 18:00 05/05/25 21:50 240 ML Epoetin Ulisses-epbx 10,000 unit TUTHSA SC 05/03/25 10:00 05/05/25 10:25 10,000 UNIT Enteral Nutritional Formula 240 ml BIDWM PO 05/04/25 18:00 05/06/25 08:04 240 ML Lorazepam 1 mg Q5MINP PRN IV 05/04/25 23:00 Lorazepam 2 mg Q1HP PRN IV 05/04/25 23:45 Morphine Sulfate 2 mg Q4HPRN PRN IV 05/05/25 02:00 05/05/25 21:51 2 MG Vancomycin HCl 0 ml @ 0 mls/hr UD IV 05/05/25 07:15 Piperacillin Sod/ Tazobactam Sod 100 ml @ 25 mls/hr Q12HR IV 05/05/25 22:00 05/06/25 09:32 25 MLS/HR Lorazepam 1 mg ONCE PRN IV 05/05/25 23:30 laboratory and microbiology Laboratory Tests 05/06/25 07:10 Test 05/06/25 07:10 Range/Units Serum Glucose 112 H 74-106 mg/dL Assessment/Plan BRIAN/CKD fluid overload kyphoscoliosis acute hypoxxemic ressp failure pleural effusions/atelectases staph hemolyticus in blood rpt CT chest reviewed bilat pl effusions/small atelectases right lung GGO fluid vs infection Cr 7 plan pt appears fluid overloaded diurese/HD will defer to nephrology continue abx supportive care suppl 02 alb/atrovent monitor mental status pt delirious most likely due to uremia Dietary Evaluation Review Comments: 1) Initiate Nepro tid 2) Initiate Nephro-Conner @ 1 tb qd 3) Encourage optimal PO intake 4) Follow-up with nephrology 5) Continue to monitor I&O, labs, and skin integrity Expected Outcomes/Goals: 1) appetite and labs to improve 2) f/u in 3-5 days Plan discussed with: Patient, Other (rn) EVANGELINA WILLIS MD May 06, 2025 10:17
--- NOTE | 2025-05-06 11:46 | DVHPN2 ---
Progress Note Date Seen: May 06, 2025 Has the PT tested + for MRSA If YES, has PT been informed?: No Medical Necessity Reason Pt with a Central, PICC or Fol: Yes The following are medically ne: Riley Catheter Reason for riley catheter: Bladder Retention/Obstruc Objective vital signs Vital Sign Date Time Temp Pulse Resp B/P (MAP) Pulse Ox O2 Delivery O2 Flow Rate FiO2 05/06/25 09:00 99.8 53 20 86/46 (59) 93 99.8 05/05/25 20:00 Nasal Cannula* 2 28 Total Intake and Output 05/05/25 05/05/25 05/06/25 15:00 23:00 07:00 Intake Total 1150 ml 350 ml 600 ml Output Total 950 ml 1800 ml Balance 1150 ml -600 ml -1200 ml medications Current Medications Medications Dose Ordered Sig/Breanne Route Start Time Stop Time Status Last Admin Dose Admin Nitroglycerin 0.4 mg Q5MINP PRN SL 04/29/25 21:45 Morphine Sulfate 2 mg Q30M PRN IV 04/29/25 21:45 05/01/25 05:33 2 MG Norepinephrine Bitartrate 250 ml @ 3.75 mls/hr Q24H IV 04/30/25 04:00 05/02/25 16:51 3.75 MLS/HR Ondansetron HCl 4 mg Q6HPRN PRN IV 05/01/25 10:15 Nystatin 1 applic BID TOP 05/01/25 22:00 05/06/25 09:35 1 APPLIC Pantoprazole Sodium 40 mg DAILY IV 05/01/25 14:30 05/06/25 09:32 40 MG Enteral Nutritional Formula 240 ml QID PO 05/02/25 18:00 05/05/25 21:50 240 ML Epoetin Ulisses-epbx 10,000 unit TUTHSA SC 05/03/25 10:00 05/05/25 10:25 10,000 UNIT Enteral Nutritional Formula 240 ml BIDWM PO 05/04/25 18:00 05/06/25 08:04 240 ML Lorazepam 1 mg Q5MINP PRN IV 05/04/25 23:00 Lorazepam 2 mg Q1HP PRN IV 05/04/25 23:45 Morphine Sulfate 2 mg Q4HPRN PRN IV 7/17/25 02:00 05/05/25 21:51 2 MG Vancomycin HCl 0 ml @ 0 mls/hr UD IV 05/05/25 07:15 Piperacillin Sod/ Tazobactam Sod 100 ml @ 25 mls/hr Q12HR IV 05/05/25 22:00 05/06/25 09:32 25 MLS/HR Lorazepam 1 mg ONCE PRN IV 05/05/25 23:30 laboratory and microbiology Laboratory Tests 05/06/25 07:10 Test 05/06/25 07:10 Range/Units Serum Glucose 112 H 74-106 mg/dL Microbiology Date/Time Source Procedure Growth Status 05/03/25 08:19 Blood Blood Culture - Preliminary NO GROWTH AFTER 72 HOURS OF INCUBATION. Resulted 05/03/25 06:26 Nose MRSA Screen - Final Complete Problem List/Assessment/Plan Problem List/Assessment/Plan Acute kidney injury ATN plus obstructive etiology Unknown renal function baseline, outside records show GFR flucuatations in setting of BRIAN 04/16/24 GFR 28 Hypocalcemia Right renal stone anemia sepsis due to bacteremia PRBC PRN keep hb 8.0, epogen 3x a week hold phos binders now normalized monitor UOP infectious w/u metabolic clearance has not returned but patient is clinically stable. no emergent HD indication at this time. Recommend outpatient BMP in next 3-4 days from [facility] will determine time to start dialysis based on assessment in outpatient Plan discussed with: Patient Dietary Evaluation Review Comments: 1) Initiate Nepro tid 2) Initiate Nephro-Conner @ 1 tb qd 3) Encourage optimal PO intake 4) Follow-up with nephrology 5) Continue to monitor I&O, labs, and skin integrity Expected Outcomes/Goals: 1) appetite and labs to improve 2) f/u in 3-5 days Total Time (mins): 26 KAYLEY DANIELS MD May 06, 2025 11:46
[2025-05-06 15:14] LABS: Hepatitis B Surface Antigen Negative (Negative)
[2025-05-06 15:35] LABS: Hepatitis C Antibody Negative (Negative)
--- NOTE | 2025-05-06 21:33 | DVHPN2 ---
Progress Note - Dictate Date Seen: May 06, 2025 Has the PT tested + for MRSA If YES, has PT been informed?: No Medical Necessity Reason Pt with a Central, PICC or Fol: Yes The following are medically ne: Riley Catheter Reason for riley catheter: Bladder Retention/Obstruc Subjective Mr. Seymour is a 70 years old gentleman with a history of scoliosis, chronic back pain, he was admitted to [facility] on 04/29/2025 with a chief complaint of general weakness. I have seen and examined the patient, I have talked to his nurse and the medical staffs who knows him. He is quite now, he yells sometimes Nurse reported the patient screams in his sleep Social service input appreciated UDS, 04/29/2025: Negative Urinalysis, 04/29/2025: WBC: Present, urine leukocyte esterase: Negative ABG, 04/29/2025: Metabolic acidosis WBC/HB/PLT/MCV, 05/05/2025: 19/9.6/108/92.9 BUN/CR, 04/29/2025: 157/12.33, 05/01/2025: 144/11.33, 05/05/25: 90 1/7.22 Liver function tests, 04/29/2025: Unremarkable Beta hydroxybutyric acid, 05/01/25: 10.3/8 Ca 04/29/25: 5.5, 04/30/2025: 4.9, 05/02/2025: 5.3, 05/04/25: 5, 05/05/2025: 6.7 Chest x-ray, 04/29/2025: Prominent right perihilar markings. This maybe secondary to the severe scoliosis. There are no prior studies for comparison. CT head, 05/04/2025: Evaluation is suboptimal due to streak artifact and patient positioning. No acute intracranial abnormality. vital signs Vital Sign Date Time Temp Pulse Resp B/P (MAP) Pulse Ox O2 Delivery O2 Flow Rate FiO2 05/06/25 17:00 98.0 120 18 94/63 (73) 94 98.0 05/06/25 08:04 Nasal Cannula* 2 28 Total Intake and Output 05/05/25 05/05/25 05/06/25 15:00 23:00 07:00 Intake Total 1150 ml 350 ml 600 ml Output Total 950 ml 1800 ml Balance 1150 ml -600 ml -1200 ml medications Current Medications Medications Dose Ordered Sig/Breanne Route Start Time Stop Time Status Last Admin Dose Admin Nitroglycerin 0.4 mg Q5MINP PRN SL 04/29/25 21:45 Morphine Sulfate 2 mg Q30M PRN IV 04/29/25 21:45 05/01/25 05:33 2 MG Norepinephrine Bitartrate 250 ml @ 3.75 mls/hr Q24H IV 04/30/25 04:00 05/02/25 16:51 3.75 MLS/HR Ondansetron HCl 4 mg Q6HPRN PRN IV 05/01/25 10:15 Nystatin 1 applic BID TOP 05/01/25 22:00 05/06/25 09:35 1 APPLIC Pantoprazole Sodium 40 mg DAILY IV 05/01/25 14:30 05/06/25 09:32 40 MG Enteral Nutritional Formula 240 ml QID PO 05/02/25 18:00 05/06/25 18:30 240 ML Epoetin Ulisses-epbx 10,000 unit TUTHSA SC 05/03/25 10:00 05/05/25 10:25 10,000 UNIT Enteral Nutritional Formula 240 ml BIDWM PO 05/04/25 18:00 05/06/25 08:04 240 ML Lorazepam 1 mg Q5MINP PRN IV 05/04/25 23:00 Lorazepam 2 mg Q1HP PRN IV 05/04/25 23:45 Morphine Sulfate 2 mg Q4HPRN PRN IV 05/05/25 02:00 05/05/25 21:51 2 MG Vancomycin HCl 0 ml @ 0 mls/hr UD IV 05/05/25 07:15 Piperacillin Sod/ Tazobactam Sod 100 ml @ 25 mls/hr Q12HR IV 05/05/25 22:00 05/06/25 09:32 25 MLS/HR Lorazepam 1 mg ONCE PRN IV 05/05/25 23:30 objective General: the patient is well developed and nourished. No acute distress. ABDOMEN: Soft, nontender, normal bowel sound MENTAL STATUS: Subjective SPEECH, LANGUAGE, HIGHER CORTICAL FUNCTION: no aphasia but he has slurry speech CRANIAL NERVES: Pupils are equal, round and reactive. EOMs full and conjugate.No nystagmus. Facial sensation intact in all three divisions bilaterally. Mandibular strength intact. Facial muscles symmetrical and strength intact. SENSATION: Sensation to touch and pinprick is unremarkable MOTOR: Normal tone in the upper and lower extremity. Normal muscle bulk. No fasciculations. No abnormal movements or posturing. Muscle strength of the major groups in the upper extremities is 4/5. Muscle strength of the major groups in the lower extremities is 2/5. REFLEXES: Deep tendon reflexes is increased in the left knee. No pathological reflexes. CEREBELLAR/COORDINATION: Finger to nose is showed mild bilateral intentional tremors GAIT/STATION: deferred. laboratory and microbiology Laboratory Tests 05/06/25 07:10 Test 05/06/25 07:10 Range/Units Serum Glucose 112 H 74-106 mg/dL Problem List New onset seizure activity, likely had grand mal seizure Slurred speech, Scoliosis, chronic pain syndrome ? Hyperreflexia in the left knee Assessment/Plan Monitoring Supportive treatment Telemetry EEG MR brain scan Ativan for seizure breakthrough Hold off preventive seizure treatment for the time being GI prophylaxis Social service on case RE living condition More recommendation per clinical course This medical document was created using an electronic medical record system with [employer] dictation system. Although this document has been carefully reviewed, there may still be some phonetic and typographical errors. These areas are purely typographical due to imperfections of the software programs, and do not reflect any compromise in the patient's medical care Prognosis poor Dietary Evaluation Review Comments: 1) Initiate Nepro tid 2) Initiate Nephro-Conner @ 1 tb qd 3) Encourage optimal PO intake 4) Follow-up with nephrology 5) Continue to monitor I&O, labs, and skin integrity Expected Outcomes/Goals: 1) appetite and labs to improve 2) f/u in 3-5 days Plan discussed with: Other GHULAM REYNOSO MD May 06, 2025 21:33
--- NOTE | 2025-05-06 23:23 | DVHPN2 ---
Progress Note - Dictate Date Seen: May 06, 2025 Has the PT tested + for MRSA If YES, has PT been informed?: No Medical Necessity Reason Pt with a Central, PICC or Fol: Yes The following are medically ne: Riley Catheter Reason for riley catheter: Bladder Retention/Obstruc Subjective Patient was seen and evaluated in follow up. No overnight events. Patient refused MRI brain and EEG. WBC 13.8, HGB 8.3, HCT 25, BUN 101, SALVAGER 7.18, CA 6.2. Telemetry reviewed. vital signs Vital Sign Date Time Temp Pulse Resp B/P (MAP) Pulse Ox O2 Delivery O2 Flow Rate FiO2 05/06/25 09:00 99.8 53 20 86/46 (59) 93 99.8 05/05/25 20:00 Nasal Cannula* 2 28 Total Intake and Output 05/05/25 05/05/25 05/06/25 15:00 23:00 07:00 Intake Total 1150 ml 350 ml 600 ml Output Total 950 ml 1800 ml Balance 1150 ml -600 ml -1200 ml medications Current Medications Medications Dose Ordered Sig/Breanne Route Start Time Stop Time Status Last Admin Dose Admin Nitroglycerin 0.4 mg Q5MINP PRN SL 04/29/25 21:45 Morphine Sulfate 2 mg Q30M PRN IV 04/29/25 21:45 05/01/25 05:33 2 MG Norepinephrine Bitartrate 250 ml @ 3.75 mls/hr Q24H IV 04/30/25 04:00 05/02/25 16:51 3.75 MLS/HR Ondansetron HCl 4 mg Q6HPRN PRN IV 05/01/25 10:15 Nystatin 1 applic BID TOP 05/01/25 22:00 05/06/25 09:35 1 APPLIC Pantoprazole Sodium 40 mg DAILY IV 05/01/25 14:30 05/06/25 09:32 40 MG Enteral Nutritional Formula 240 ml QID PO 05/02/25 18:00 05/05/25 21:50 240 ML Epoetin Ulisses-epbx 10,000 unit TUTHSA SC 05/03/25 10:00 05/05/25 10:25 10,000 UNIT Enteral Nutritional Formula 240 ml BIDWM PO 05/04/25 18:00 05/06/25 08:04 240 ML Lorazepam 1 mg Q5MINP PRN IV 05/04/25 23:00 Lorazepam 2 mg Q1HP PRN IV 05/04/25 23:45 Morphine Sulfate 2 mg Q4HPRN PRN IV 05/05/25 02:00 05/05/25 21:51 2 MG Vancomycin HCl 0 ml @ 0 mls/hr UD IV 05/05/25 07:15 Piperacillin Sod/ Tazobactam Sod 100 ml @ 25 mls/hr Q12HR IV 05/05/25 22:00 05/06/25 09:32 25 MLS/HR Lorazepam 1 mg ONCE PRN IV 05/05/25 23:30 objective GENERAL: Alert and oriented x 3. No acute distress. EYES: PERRL, EOMI. Anicteric. HENT: Moist mucous membranes. LUNGS: Clear to auscultation bilaterally. CARDIOVASCULAR: Regular rate and rhythm. ABDOMEN: Soft, nontender and nondistended. EXTREMITIES: No edema. NEUROLOGIC: No focal neurological deficits. SKIN: Warm, dry. laboratory and microbiology Laboratory Tests 05/06/25 07:10 Test 05/06/25 07:10 Range/Units Serum Glucose 112 H 74-106 mg/dL Problem List Anion gap metabolic acidosis. Hypotension. Malnourishment. Dehydration. BRIAN Hypocalcemia. Hypernatremia. Hypokalemia. HFpEF, reduced systolic EF 30%, acute. Assessment/Plan Continued all current supportive medical care. Nitro SL. GI prophylactics. IV antibiotics as ordered. Additional plan as per the hospital course. Dietary Evaluation Review Comments: 1) Initiate Nepro tid 2) Initiate Nephro-Conner @ 1 tb qd 3) Encourage optimal PO intake 4) Follow-up with nephrology 5) Continue to monitor I&O, labs, and skin integrity Expected Outcomes/Goals: 1) appetite and labs to improve 2) f/u in 3-5 days Plan discussed with: Patient EDD BUITRAGO MD May 06, 2025 12:41
[2025-05-07 05:00] VITALS: BP 99/66; PULSE 94; RESP 16; TEMP 98.7; O2SAT 96
[2025-05-07 05:43] LABS: Mean Corpuscular Volume 90.0 fL (80.0-100.0); Nucleated Red Blood Cells % 0.0 %
[2025-05-07 05:45] LABS: Hematocrit 23.3 % (41.0-53.0); Hemoglobin 7.9 g/dL (13.5-17.5); Mean Corpuscular Hemoglobin 30.4 pg (28.0-32.0)
[2025-05-07 06:17] LABS: Alanine Aminotransferase 16 U/L (7-40); Alkaline Phosphatase 47 U/L (46-116); Anion Gap 14 (5-15); BUN/Creatinine Ratio 15.2 (10.0-20.0); Bilirubin, Total 0.5 mg/dL (0.2-1.0); Carbon Dioxide 23 mmol/L (20-31); Glucose 101 mg/dL (74-106)
[2025-05-07 06:35] LABS: Albumin 2.8 g/dL (3.2-4.8); Calcium 6.1 mg/dL (8.7-10.4); Chloride 106 mmol/L (98-107); Potassium 4.0 mmol/L (3.5-5.1); Sodium 143 mmol/L (136-145); Total Protein 4.4 g/dL (5.7-8.2)
[2025-05-07 06:38] LABS: Blood Urea Nitrogen 110 mg/dL (9-23)
[2025-05-07 08:00] VITALS: PULSE 98; RESP 20; O2SAT 97
[2025-05-07] MEDS ORDERED: CLIN1CAP70 PO (08:46)
--- NOTE | 2025-05-07 08:50 | DVH ---
EXAMINATION: MRI BRAIN HEAD WO CONTRAST INDICATION: Sz, left knee hyperreflexia COMPARISON: CT scan of the head performed on 05/04/2025 TECHNIQUE: Multiplanar, multisequence magnetic resonance imaging of the brain was performed without the use of i ntravenous contrast. FINDINGS: Restricted diffusion in the right occipital lobe and a punctate focus of restricted diffusion in the right cerebellum consistent with acute infarcts. Generalized cortical volume loss. There is periventricular/deep white matter T2/FLAIR hyperintensity is nonspecific, but most commonly associated with chronic microvascular disease. The ventricles and sulci are normal in size for age. Clear basal cisterns. Flow voids in the major intracranial vessels are maintained. No abnormality of the orbits. Paranasal sinuses and mastoid air cells are clear. No abnormality of the visualized osseous structures and extracranial soft tissues. IMPRESSION: 1. Acute infarcts in the right occipital lobe and right cerebellum. No midline shift or mass effect.
--- NOTE | 2025-05-07 08:57 | DVHDS2 ---
New Physician D'charge PN Admitting Diagnosis Admitting Diagnosis anemia/shock Discharge Diagnosis anemia s/p PRBCs septic shock, resolved acute cva seizure Operations or Procedures none Reason(s) For Hospitalization Surgery Hospital Course 70 M who comes to ER for weakness and anemia. his initial hgb was 6.7 and his BUN 157 and Cr 12.2 with metabolic acidosis. He was admitted to ICU and started on vasopressor support with levophed as he was hypotensive. He was covered with broad spectrum IV Abx and transfused 2 units PRBC and his hgb improved to >8. Nephrology saw him given his renal failure and he was hydrated thru out the hospital course. Eventually his Cr downtrended to around 7 however there was no need for immediate dialysis and thus he was managed conservatively with fluids regarding his renal failure. He has now been downgraded to tele and has been off levophed. His BCx grew MSSA and repeat BCx were negative. Please refer to sensitivities for more details. While on the tele floor his hospital course was complicated by breakthrough seizure and he was seen by neurology and given IV ativan when he has the seizure. Brain MRI was ordered and proved to show acute infarcts please refer to the MRI report for more details. Patient will be started on asa lipitor therapy.Cardiology also saw him and echo showed HFrEF 30% but he had no evidence of decompensated CHF as he is saturating well. Patient is profoundly weak and will need rehab for PT and thus after discussion with his family they would like for him to go to SNF. He will complete PO clndamycin x 10 days at SNF for MSSA bacteremia. [facility] to arrange for SNF bed and transport. Paperwork signed for SNF transfer and in chart. Treatment Plan Discharge Condition of Discharge Good Disposition Halfway Facility Discharge Instructions Diet: Cardiac 2g Na,low cholest Activity: No Restrictions, As Tolerated Medications: see med sheet Follow Up Care Follow Up/Referral: pcp renal Discharge Statement: "Patient was advised to return to the ER or call 911 if any headaches, dizziness, shortness of breath, chest pain, abdominal pain, bleeding, fevers, or worsening of medical condition. Patient was counseled about treatment plan, medications, possible side effects, patientverbalized understanding. All questions were answered to the best of my ability. This discharge took greater then 30 minutes in planning, reviewing documentation, counseling the patient, and discussing with other team members." ANEESH SÁNCHEZ MD May 07, 2025 08:56
[2025-05-07 09:00] VITALS: BP 92/62; PULSE 87; RESP 20; TEMP 98.7; O2SAT 95
[2025-05-07] MEDS ORDERED: ASPI-543 PO (09:10)
[2025-05-07] MEDS ORDERED: ATOR-507 PO (09:10)
[2025-05-07 10:00] VITALS: PULSE 92
[2025-05-07 13:00] VITALS: BP 93/47; PULSE 50; RESP 16; TEMP 98.2; O2SAT 93
[2025-05-07] MEDS ORDERED: KEP500T PO (13:09)
[2025-05-07 13:29] LABS: Triglycerides 76 mg/dL (< 150)
[2025-05-07 13:31] LABS: Cholesterol 75 mg/dL (< 200)
[2025-05-07 14:01] LABS: HDL Cholesterol 21 mg/dL (40-59)
--- NOTE | 2025-05-07 14:38 | DVHPN2 ---
Progress Note - Dictate Date Seen: May 07, 2025 Has the PT tested + for MRSA If YES, has PT been informed?: No Medical Necessity Reason Pt with a Central, PICC or Fol: Yes The following are medically ne: Riley Catheter Reason for riley catheter: Bladder Retention/Obstruc vital signs Vital Sign Date Time Temp Pulse Resp B/P (MAP) Pulse Ox O2 Delivery O2 Flow Rate FiO2 05/07/25 13:00 98.2 50 16 93/47 (62) 93 98.2 05/07/25 08:00 Nasal Cannula* 2 28 Total Intake and Output 05/06/25 05/06/25 05/07/25 15:00 23:00 07:00 Intake Total 100 ml 1000 ml 440 ml Output Total 550 ml 500 ml Balance 100 ml 450 ml -60 ml medications Current Medications Medications Dose Ordered Sig/Breanne Route Start Time Stop Time Status Last Admin Dose Admin Nitroglycerin 0.4 mg Q5MINP PRN SL 04/29/25 21:45 Morphine Sulfate 2 mg Q30M PRN IV 04/29/25 21:45 05/01/25 05:33 2 MG Norepinephrine Bitartrate 250 ml @ 3.75 mls/hr Q24H IV 04/30/25 04:00 Hold 05/02/25 16:51 3.75 MLS/HR Ondansetron HCl 4 mg Q6HPRN PRN IV 05/01/25 10:15 Nystatin 1 applic BID TOP 05/01/25 22:00 05/07/25 09:24 1 APPLIC Pantoprazole Sodium 40 mg DAILY IV 05/01/25 14:30 05/07/25 09:23 40 MG Enteral Nutritional Formula 240 ml QID PO 05/02/25 18:00 05/07/25 11:59 240 ML Epoetin Ulisses-epbx 10,000 unit TUTHSA SC 05/03/25 10:00 05/07/25 09:24 10,000 UNIT Enteral Nutritional Formula 240 ml BIDWM PO 05/04/25 18:00 05/07/25 08:00 240 ML Lorazepam 1 mg Q5MINP PRN IV 05/04/25 23:00 Lorazepam 2 mg Q1HP PRN IV 05/04/25 23:45 Morphine Sulfate 2 mg Q4HPRN PRN IV 05/05/25 02:00 05/06/25 22:43 2 MG Vancomycin HCl 0 ml @ 0 mls/hr UD IV 05/05/25 07:15 Piperacillin Sod/ Tazobactam Sod 100 ml @ 25 mls/hr Q12HR IV 05/05/25 22:00 05/07/25 09:23 25 MLS/HR Lorazepam 1 mg ONCE PRN IV 05/05/25 23:30 Aspirin 81 mg DAILY PO 05/07/25 10:00 05/07/25 12:18 81 MG laboratory and microbiology Laboratory Tests 05/07/25 05:00 Test 05/07/25 05:00 Range/Units Serum Glucose 101 74-106 mg/dL Assessment/Plan BRIAN/CKD fluid overload kyphoscoliosis acute hypoxxemic ressp failure pleural effusions/atelectases staph hemolyticus in blood patient seen and examined events low oxygen requirements on 2 liters nasal cannula hemodynamics improving, off Levophed drip Downgraded from ICU patient altered MRI of the brain shows acute infarcts in the right occipital lobe and right cerebellum plan supplemental oxygen diurese/HD will defer to nephrology continue abx supportive care suppl 02 alb/atrovent f/u neurology Dietary Evaluation Review Comments: 1) Initiate Nepro tid 2) Initiate Nephro-Conner @ 1 tb qd 3) Encourage optimal PO intake 4) Follow-up with nephrology 5) Continue to monitor I&O, labs, and skin integrity Expected Outcomes/Goals: 1) appetite and labs to improve 2) f/u in 3-5 days Plan discussed with: Other (Rn) EVANGELINA WILLIS MD May 07, 2025 14:38
--- NOTE | 2025-05-07 15:51 | DVH ---
Carotid Duplex Date: 05/07/2025 12:58 PM Clinical History: Brain MRI results Comparison: None Technique: Duplex doppler evaluation of the extracranial carotid and vertebral arteries including col or doppler and spectral/pulsed waveform analysis was performed. Findings: RIGHT SIDE: Not seen. LEFT SIDE: The peak systolic velocities are 74 cm/s in the distal CCA IMPRESSION: Right carotids not seen due to PICC line. Limited evaluation of left due to patient condition. Left CCA velocities within normal limits.
[2025-05-07 17:00] VITALS: BP 105/69; PULSE 99; RESP 20; TEMP 97.9; O2SAT 94
[2025-05-07 18:07] LABS: Vitamin D-2 25-Hydroxy <1.0 ng/mL (.); Vitamin D-3 25-Hydroxy 5.6 ng/mL (.)
--- NOTE | 2025-05-07 19:26 | DVHPN2 ---
Consult Progress Note Date Seen: May 06, 2025 Subjective Patient reports: Other Objective vital signs Vital Sign Date Time Temp Pulse Resp B/P (MAP) Pulse Ox O2 Delivery O2 Flow Rate FiO2 05/07/25 17:00 97.9 99 20 105/69 (81) 94 97.9 05/07/25 08:00 Nasal Cannula* 2 28 Total Intake and Output 05/06/25 05/06/25 05/07/25 14:59 22:59 06:59 Intake Total 100 ml 1000 ml 440 ml Output Total 550 ml 500 ml Balance 100 ml 450 ml -60 ml medications Current Medications Medications Dose Ordered Sig/Breanne Route Start Time Stop Time Status Last Admin Dose Admin Nitroglycerin 0.4 mg Q5MINP PRN SL 04/29/25 21:45 Morphine Sulfate 2 mg Q30M PRN IV 04/29/25 21:45 05/01/25 05:33 2 MG Norepinephrine Bitartrate 250 ml @ 3.75 mls/hr Q24H IV 04/30/25 04:00 Hold 05/02/25 16:51 3.75 MLS/HR Ondansetron HCl 4 mg Q6HPRN PRN IV 05/01/25 10:15 Nystatin 1 applic BID TOP 05/01/25 22:00 05/07/25 09:24 1 APPLIC Pantoprazole Sodium 40 mg DAILY IV 05/01/25 14:30 05/07/25 09:23 40 MG Enteral Nutritional Formula 240 ml QID PO 05/02/25 18:00 05/07/25 17:43 240 ML Epoetin Ulisses-epbx 10,000 unit TUTHSA SC 05/03/25 10:00 05/07/25 09:24 10,000 UNIT Enteral Nutritional Formula 240 ml BIDWM PO 05/04/25 18:00 05/07/25 17:43 240 ML Lorazepam 1 mg Q5MINP PRN IV 05/04/25 23:00 Lorazepam 2 mg Q1HP PRN IV 05/04/25 23:45 Morphine Sulfate 2 mg Q4HPRN PRN IV 05/05/25 02:00 05/06/25 22:43 2 MG Vancomycin HCl 0 ml @ 0 mls/hr UD IV 05/05/25 07:15 Piperacillin Sod/ Tazobactam Sod 100 ml @ 25 mls/hr Q12HR IV 05/05/25 22:00 05/07/25 09:23 25 MLS/HR Lorazepam 1 mg ONCE PRN IV 05/05/25 23:30 Aspirin 81 mg DAILY PO 05/07/25 10:00 05/07/25 12:18 81 MG laboratory and microbiology Laboratory Tests 05/07/25 05:00 Test 05/07/25 05:00 Range/Units Serum Glucose 101 74-106 mg/dL Problem List/Assessment/Plan Problems(with codes): (1) Aspiration into airway (2) Facial contusion (3) Facial laceration (4) Bacteremia (5) Community acquired pneumonia (6) Metabolic acidosis (7) Scoliosis (8) Symptomatic anemia Problem List/Assessment/Plan ASSESSMENT AND PLAN: ID Problem List: \-- Altered mental status \-- Acute renal failure \-- Anemia \-- Sepsis/bacteremia, Staphylococcus hemolyticus \-- Pneumonia, likely aspiration \-- Stroke (acute infarcts right occipital lobe and right cerebellum) \-- Seizure activity \-- Kyphosis/scoliosis, severe Assessment Mr. Junior Streeter is a 70-year-old male with an unknown past medical history who presents with two months of weakness and altered mental status. Patient was noted to be a poor historian and was brought in by family due to concern for suicidal ideation. Initial labs revealed renal failure (BUN 151, creatinine 11.53), significant anemia (hemoglobin 6.7), mild leukocytosis (WBC 10.8), and hypocalcemia. Blood cultures were positive for Staphylococcus hemolyticus. He was hypotensive and required vasopressor support (Levofed). Sacral wound and mild dermatitis in the area were observed. Urine studies consistent with mild pyuria, negative for UTI. Imaging notable for severe scoliosis/kyphosis and degenerative vertebral changes; chest X-ray and CT demonstrated no consolidations but did show right perihilar changes and bilateral atelectasis. MRI brain showed acute infarcts in the right occipital lobe and cerebellum. Patient had seizure requiring IV Ativan. Platelet count, white count, and hemoglobin have stabilized after transfusion, and renal function is slowly improving, not yet requiring dialysis. Hospital course included empiric antibiotics (started on vancomycin, then switched to Zosyn; meropenem dose given for concern of BRIAN; monotherapy for pneumonia ongoing). Patient is now alert and oriented, remains incontinent, and is currently on 2L nasal cannula. Plan includes completion of 5-7 day antibiotic course, repeat blood cultures, with further evaluation for dialysis as indicated. Primary, neurology, and nephrology teams involved for management of ongoing issues. 05/04: continue aspiration precautions , more alert and less concern for aspiration risk 05/05: patient still has quite a bit of uremia and intermittently lethargic , suspect whitecount elevation due to aspiration 05/06: chest xray shows right lower lung airspace disease worsening , crackles in the right lung base Plan: - suspect aspiration pneumonia is ongoing with active aspiration risk - defer to primary team for management of aspiration risk when ready for discharge - given lack of hypoxia , rapidly improving clinical status would stop vancomycin - follow strict aspiration precautions - repeat chest xray and sputum culture in the morning \-- presuming patient is off pressers can stop antibiotic coarse tentatively on 05/09 \-- Continue Zosyn on original 7 day coarse for aspiration pneumonia \-- Monitor closely for resolution of Staphylococcus bacteremia; repeat blood cultures recommended \-- Treat pneumonia (likely aspiration) with a 5-7 day course (consider ceftriaxone, Zosyn, or other appropriate agent) \-- Monitor and support renal function; nephrology to assess for need of renal replacement therapy \-- Monitor anemia/hematology labs; transfuse as needed \-- Neurology to manage stroke and seizure activity (IV Ativan as ordered) \-- Monitor hemodynamics; continue pressors if needed \-- Supportive care for skin wound and sacral dermatitis \-- Primary team to continue workup and management of hypertension, anemia, and other ongoing issues Plan discussed with: Other Dietary Evaluation Review Comments: 1) Initiate Nepro tid 2) Initiate Nephro-Conner @ 1 tb qd 3) Encourage optimal PO intake 4) Follow-up with nephrology 5) Continue to monitor I&O, labs, and skin integrity Expected Outcomes/Goals: 1) appetite and labs to improve 2) f/u in 3-5 days DAVE ELDRIDGE MD May 07, 2025 19:26
--- NOTE | 2025-05-07 19:26 | DVHPN2 ---
Consult Progress Note Date Seen: May 05, 2025 Subjective Patient reports: Other (michael is quite elvated today , has not been on steroid therapy , tolerating dialysis ) Objective vital signs Vital Sign Date Time Temp Pulse Resp B/P (MAP) Pulse Ox O2 Delivery O2 Flow Rate FiO2 05/07/25 17:00 97.9 99 20 105/69 (81) 94 97.9 05/07/25 08:00 Nasal Cannula* 2 28 Total Intake and Output 05/06/25 05/06/25 05/07/25 14:59 22:59 06:59 Intake Total 100 ml 1000 ml 440 ml Output Total 550 ml 500 ml Balance 100 ml 450 ml -60 ml medications Current Medications Medications Dose Ordered Sig/Breanne Route Start Time Stop Time Status Last Admin Dose Admin Nitroglycerin 0.4 mg Q5MINP PRN SL 04/29/25 21:45 Morphine Sulfate 2 mg Q30M PRN IV 04/29/25 21:45 05/01/25 05:33 2 MG Norepinephrine Bitartrate 250 ml @ 3.75 mls/hr Q24H IV 04/30/25 04:00 Hold 05/02/25 16:51 3.75 MLS/HR Ondansetron HCl 4 mg Q6HPRN PRN IV 05/01/25 10:15 Nystatin 1 applic BID TOP 05/01/25 22:00 05/07/25 09:24 1 APPLIC Pantoprazole Sodium 40 mg DAILY IV 05/01/25 14:30 05/07/25 09:23 40 MG Enteral Nutritional Formula 240 ml QID PO 05/02/25 18:00 05/07/25 17:43 240 ML Epoetin Ulisses-epbx 10,000 unit TUTHSA SC 05/03/25 10:00 05/07/25 09:24 10,000 UNIT Enteral Nutritional Formula 240 ml BIDWM PO 05/04/25 18:00 05/07/25 17:43 240 ML Lorazepam 1 mg Q5MINP PRN IV 05/04/25 23:00 Lorazepam 2 mg Q1HP PRN IV 05/04/25 23:45 Morphine Sulfate 2 mg Q4HPRN PRN IV 05/05/25 02:00 05/06/25 22:43 2 MG Vancomycin HCl 0 ml @ 0 mls/hr UD IV 05/05/25 07:15 Piperacillin Sod/ Tazobactam Sod 100 ml @ 25 mls/hr Q12HR IV 05/05/25 22:00 05/07/25 09:23 25 MLS/HR Lorazepam 1 mg ONCE PRN IV 05/05/25 23:30 Aspirin 81 mg DAILY PO 05/07/25 10:00 05/07/25 12:18 81 MG laboratory and microbiology Laboratory Tests 05/07/25 05:00 Test 05/07/25 05:00 Range/Units Serum Glucose 101 74-106 mg/dL Problem List/Assessment/Plan Problems(with codes): (1) Aspiration into airway (2) Facial contusion (3) Facial laceration (4) Community acquired pneumonia (5) Bacteremia (6) Metabolic acidosis Problem List/Assessment/Plan ASSESSMENT AND PLAN: ID Problem List: \-- Altered mental status \-- Acute renal failure \-- Anemia \-- Sepsis/bacteremia, Staphylococcus hemolyticus \-- Pneumonia, likely aspiration \-- Stroke (acute infarcts right occipital lobe and right cerebellum) \-- Seizure activity \-- Kyphosis/scoliosis, severe Assessment Mr. Junior Streeter is a 70-year-old male with an unknown past medical history who presents with two months of weakness and altered mental status. Patient was noted to be a poor historian and was brought in by family due to concern for suicidal ideation. Initial labs revealed renal failure (BUN 151, creatinine 11.53), significant anemia (hemoglobin 6.7), mild leukocytosis (WBC 10.8), and hypocalcemia. Blood cultures were positive for Staphylococcus hemolyticus. He was hypotensive and required vasopressor support (Levofed). Sacral wound and mild dermatitis in the area were observed. Urine studies consistent with mild pyuria, negative for UTI. Imaging notable for severe scoliosis/kyphosis and degenerative vertebral changes; chest X-ray and CT demonstrated no consolidations but did show right perihilar changes and bilateral atelectasis. MRI brain showed acute infarcts in the right occipital lobe and cerebellum. Patient had seizure requiring IV Ativan. Platelet count, white count, and hemoglobin have stabilized after transfusion, and renal function is slowly improving, not yet requiring dialysis. Hospital course included empiric antibiotics (started on vancomycin, then switched to Zosyn; meropenem dose given for concern of BRIAN; monotherapy for pneumonia ongoing). Patient is now alert and oriented, remains incontinent, and is currently on 2L nasal cannula. Plan includes completion of 5-7 day antibiotic course, repeat blood cultures, with further evaluation for dialysis as indicated. Primary, neurology, and nephrology teams involved for management of ongoing issues. 05/04: continue aspiration precautions , more alert and less concern for aspiration risk 05/05: patient still has quite a bit of uremia and intermittently lethargic , suspect whitecount elevation due to aspiration Plan: - follow strict aspiration precautions - repeat chest xray and sputum culture in the morning \-- presuming patient is off pressers can stop antibiotic coarse tentatively on 05/09 \-- Continue Zosyn and Vancomycin \-- Monitor closely for resolution of Staphylococcus bacteremia; repeat blood cultures recommended \-- Treat pneumonia (likely aspiration) with a 5-7 day course (consider ceftriaxone, Zosyn, or other appropriate agent) \-- Monitor and support renal function; nephrology to assess for need of renal replacement therapy \-- Monitor anemia/hematology labs; transfuse as needed \-- Neurology to manage stroke and seizure activity (IV Ativan as ordered) \-- Monitor hemodynamics; continue pressors if needed \-- Supportive care for skin wound and sacral dermatitis \-- Primary team to continue workup and management of hypertension, anemia, and other ongoing issues Plan discussed with: Other Dietary Evaluation Review Comments: 1) Initiate Nepro tid 2) Initiate Nephro-Conner @ 1 tb qd 3) Encourage optimal PO intake 4) Follow-up with nephrology 5) Continue to monitor I&O, labs, and skin integrity Expected Outcomes/Goals: 1) appetite and labs to improve 2) f/u in 3-5 days DAVE ELDRIDGE MD May 07, 2025 19:26
--- NOTE | 2025-05-07 19:26 | DVHPN2 ---
Consult Progress Note Date Seen: May 04, 2025 Subjective Patient reports: Other (on 2 mics of levofed , down to 2 liters nasal cnaula and does not appear to be actively aspirating ) Objective vital signs Vital Sign Date Time Temp Pulse Resp B/P (MAP) Pulse Ox O2 Delivery O2 Flow Rate FiO2 05/07/25 17:00 97.9 99 20 105/69 (81) 94 97.9 05/07/25 08:00 Nasal Cannula* 2 28 Total Intake and Output 05/06/25 05/06/25 05/07/25 14:59 22:59 06:59 Intake Total 100 ml 1000 ml 440 ml Output Total 550 ml 500 ml Balance 100 ml 450 ml -60 ml medications Current Medications Medications Dose Ordered Sig/Breanne Route Start Time Stop Time Status Last Admin Dose Admin Nitroglycerin 0.4 mg Q5MINP PRN SL 04/29/25 21:45 Morphine Sulfate 2 mg Q30M PRN IV 04/29/25 21:45 05/01/25 05:33 2 MG Norepinephrine Bitartrate 250 ml @ 3.75 mls/hr Q24H IV 04/30/25 04:00 Hold 05/02/25 16:51 3.75 MLS/HR Ondansetron HCl 4 mg Q6HPRN PRN IV 05/01/25 10:15 Nystatin 1 applic BID TOP 05/01/25 22:00 05/07/25 09:24 1 APPLIC Pantoprazole Sodium 40 mg DAILY IV 05/01/25 14:30 05/07/25 09:23 40 MG Enteral Nutritional Formula 240 ml QID PO 05/02/25 18:00 05/07/25 17:43 240 ML Epoetin Ulisses-epbx 10,000 unit TUTHSA SC 05/03/25 10:00 05/07/25 09:24 10,000 UNIT Enteral Nutritional Formula 240 ml BIDWM PO 05/04/25 18:00 05/07/25 17:43 240 ML Lorazepam 1 mg Q5MINP PRN IV 05/04/25 23:00 Lorazepam 2 mg Q1HP PRN IV 05/04/25 23:45 Morphine Sulfate 2 mg Q4HPRN PRN IV 05/05/25 02:00 05/06/25 22:43 2 MG Vancomycin HCl 0 ml @ 0 mls/hr UD IV 05/05/25 07:15 Piperacillin Sod/ Tazobactam Sod 100 ml @ 25 mls/hr Q12HR IV 05/05/25 22:00 05/07/25 09:23 25 MLS/HR Lorazepam 1 mg ONCE PRN IV 05/05/25 23:30 Aspirin 81 mg DAILY PO 05/07/25 10:00 05/07/25 12:18 81 MG laboratory and microbiology Laboratory Tests 05/07/25 05:00 Test 05/07/25 05:00 Range/Units Serum Glucose 101 74-106 mg/dL Problem List/Assessment/Plan Problems(with codes): (1) Aspiration into airway (2) Facial contusion (3) Community acquired pneumonia (4) Bacteremia (5) Metabolic acidosis (6) Scoliosis Problem List/Assessment/Plan ASSESSMENT AND PLAN: ID Problem List: \-- Altered mental status \-- Acute renal failure \-- Anemia \-- Sepsis/bacteremia, Staphylococcus hemolyticus \-- Pneumonia, likely aspiration \-- Stroke (acute infarcts right occipital lobe and right cerebellum) \-- Seizure activity \-- Kyphosis/scoliosis, severe Assessment Mr. Junior Streeter is a 70-year-old male with an unknown past medical history who presents with two months of weakness and altered mental status. Patient was noted to be a poor historian and was brought in by family due to concern for suicidal ideation. Initial labs revealed renal failure (BUN 151, creatinine 11.53), significant anemia (hemoglobin 6.7), mild leukocytosis (WBC 10.8), and hypocalcemia. Blood cultures were positive for Staphylococcus hemolyticus. He was hypotensive and required vasopressor support (Levofed). Sacral wound and mild dermatitis in the area were observed. Urine studies consistent with mild pyuria, negative for UTI. Imaging notable for severe scoliosis/kyphosis and degenerative vertebral changes; chest X-ray and CT demonstrated no consolidations but did show right perihilar changes and bilateral atelectasis. MRI brain showed acute infarcts in the right occipital lobe and cerebellum. Patient had seizure requiring IV Ativan. Platelet count, white count, and hemoglobin have stabilized after transfusion, and renal function is slowly improving, not yet requiring dialysis. Hospital course included empiric antibiotics (started on vancomycin, then switched to Zosyn; meropenem dose given for concern of BRIAN; monotherapy for pneumonia ongoing). Patient is now alert and oriented, remains incontinent, and is currently on 2L nasal cannula. Plan includes completion of 5-7 day antibiotic course, repeat blood cultures, with further evaluation for dialysis as indicated. Primary, neurology, and nephrology teams involved for management of ongoing issues. 05/04: continue aspiration precautions , more alert and less concern for aspiration risk Plan: \-- presuming patient is off pressers can stop antibiotic coarse tentatively on 05/09 \-- Continue Zosyn for current infection management \-- Monitor closely for resolution of Staphylococcus bacteremia; repeat blood cultures recommended \-- Treat pneumonia (likely aspiration) with a 5-7 day course (consider ceftriaxone, Zosyn, or other appropriate agent) \-- Monitor and support renal function; nephrology to assess for need of renal replacement therapy \-- Monitor anemia/hematology labs; transfuse as needed \-- Neurology to manage stroke and seizure activity (IV Ativan as ordered) \-- Monitor hemodynamics; continue pressors if needed \-- Supportive care for skin wound and sacral dermatitis \-- Primary team to continue workup and management of hypertension, anemia, and other ongoing issues Isolation Precautions: Not specified Plan discussed with: Other Dietary Evaluation Review Comments: 1) Initiate Nepro tid 2) Initiate Nephro-Conner @ 1 tb qd 3) Encourage optimal PO intake 4) Follow-up with nephrology 5) Continue to monitor I&O, labs, and skin integrity Expected Outcomes/Goals: 1) appetite and labs to improve 2) f/u in 3-5 days DAVE ELDRIDGE MD May 07, 2025 19:26
--- NOTE | 2025-05-07 19:27 | DVHPN2 ---
Consult Progress Note Date Seen: May 07, 2025 Subjective Patient reports: Other (patient had a seizure activity reportly on 05/05 and 05/06 , history of seizures and possible foaming at the mouth and is being evaluated by neurology ) Objective vital signs Vital Sign Date Time Temp Pulse Resp B/P (MAP) Pulse Ox O2 Delivery O2 Flow Rate FiO2 05/07/25 17:00 97.9 99 20 105/69 (81) 94 97.9 05/07/25 08:00 Nasal Cannula* 2 28 Total Intake and Output 05/06/25 05/06/25 05/07/25 14:59 22:59 06:59 Intake Total 100 ml 1000 ml 440 ml Output Total 550 ml 500 ml Balance 100 ml 450 ml -60 ml medications Current Medications Medications Dose Ordered Sig/Breanne Route Start Time Stop Time Status Last Admin Dose Admin Nitroglycerin 0.4 mg Q5MINP PRN SL 04/29/25 21:45 Morphine Sulfate 2 mg Q30M PRN IV 04/29/25 21:45 05/01/25 05:33 2 MG Norepinephrine Bitartrate 250 ml @ 3.75 mls/hr Q24H IV 04/30/25 04:00 Hold 05/02/25 16:51 3.75 MLS/HR Ondansetron HCl 4 mg Q6HPRN PRN IV 05/01/25 10:15 Nystatin 1 applic BID TOP 05/01/25 22:00 05/07/25 09:24 1 APPLIC Pantoprazole Sodium 40 mg DAILY IV 05/01/25 14:30 05/07/25 09:23 40 MG Enteral Nutritional Formula 240 ml QID PO 05/02/25 18:00 05/07/25 17:43 240 ML Epoetin Ulisses-epbx 10,000 unit TUTHSA SC 05/03/25 10:00 05/07/25 09:24 10,000 UNIT Enteral Nutritional Formula 240 ml BIDWM PO 05/04/25 18:00 05/07/25 17:43 240 ML Lorazepam 1 mg Q5MINP PRN IV 05/04/25 23:00 Lorazepam 2 mg Q1HP PRN IV 05/04/25 23:45 Morphine Sulfate 2 mg Q4HPRN PRN IV 05/05/25 02:00 05/06/25 22:43 2 MG Vancomycin HCl 0 ml @ 0 mls/hr UD IV 05/05/25 07:15 Piperacillin Sod/ Tazobactam Sod 100 ml @ 25 mls/hr Q12HR IV 05/05/25 22:00 05/07/25 09:23 25 MLS/HR Lorazepam 1 mg ONCE PRN IV 05/05/25 23:30 Aspirin 81 mg DAILY PO 05/07/25 10:00 05/07/25 12:18 81 MG laboratory and microbiology Laboratory Tests 05/07/25 05:00 Test 05/07/25 05:00 Range/Units Serum Glucose 101 74-106 mg/dL Problem List/Assessment/Plan Problems(with codes): (1) Aspiration into airway (2) Facial contusion (3) Facial laceration (4) Community acquired pneumonia (5) Bacteremia (6) Metabolic acidosis (7) Scoliosis Problem List/Assessment/Plan ASSESSMENT AND PLAN: ID Problem List: \-- Altered mental status \-- Acute renal failure \-- Anemia \-- Sepsis/bacteremia, Staphylococcus hemolyticus \-- Pneumonia, likely aspiration \-- Stroke (acute infarcts right occipital lobe and right cerebellum) \-- Seizure activity \-- Kyphosis/scoliosis, severe Assessment Mr. Junior Streeter is a 70-year-old male with an unknown past medical history who presents with two months of weakness and altered mental status. Patient was noted to be a poor historian and was brought in by family due to concern for suicidal ideation. Initial labs revealed renal failure (BUN 151, creatinine 11.53), significant anemia (hemoglobin 6.7), mild leukocytosis (WBC 10.8), and hypocalcemia. Blood cultures were positive for Staphylococcus hemolyticus. He was hypotensive and required vasopressor support (Levofed). Sacral wound and mild dermatitis in the area were observed. Urine studies consistent with mild pyuria, negative for UTI. Imaging notable for severe scoliosis/kyphosis and degenerative vertebral changes; chest X-ray and CT demonstrated no consolidations but did show right perihilar changes and bilateral atelectasis. MRI brain showed acute infarcts in the right occipital lobe and cerebellum. Patient had seizure requiring IV Ativan. Platelet count, white count, and hemoglobin have stabilized after transfusion, and renal function is slowly improving, not yet requiring dialysis. Hospital course included empiric antibiotics (started on vancomycin, then switched to Zosyn; meropenem dose given for concern of BRIAN; monotherapy for pneumonia ongoing). Patient is now alert and oriented, remains incontinent, and is currently on 2L nasal cannula. Plan includes completion of 5-7 day antibiotic course, repeat blood cultures, with further evaluation for dialysis as indicated. Primary, neurology, and nephrology teams involved for management of ongoing issues. 05/04: continue aspiration precautions , more alert and less concern for aspiration risk 05/05: patient still has quite a bit of uremia and intermittently lethargic , suspect whitecount elevation due to aspiration 05/06: chest xray shows right lower lung airspace disease worsening , crackles in the right lung base 05/07; seen my neurology who recommned EEG brainscan , unlikely seizures were triggered in any way by antibiotic therapy . patient has lowering platelets . remains confused, not on dialysis on 2LNC Plan: - repeat blood cultures are NGTD - suspect aspiration pneumonia is ongoing with active aspiration risk - defer to primary team for management of aspiration risk when ready for discharge - follow strict aspiration precautions - repeat chest xray and sputum culture in the morning \-- presuming patient is off pressers can stop antibiotic coarse tentatively on 05/09 \-- STOP Zosyn , start ceftriaxone due to low platelets - defer management of seizure activity to neurology team - start oral cefdinir po bid 300 mg when ready for discharge for an additional 3 days \-- Monitor closely for resolution of Staphylococcus bacteremia; repeat blood cultures recommended \-- Treat pneumonia (likely aspiration) with a 5-7 day course (consider ceftriaxone, Zosyn, or other appropriate agent) \-- Monitor and support renal function; nephrology to assess for need of renal replacement therapy \-- Monitor anemia/hematology labs; transfuse as needed \-- Neurology to manage stroke and seizure activity (IV Ativan as ordered) \-- Monitor hemodynamics; continue pressors if needed \-- Supportive care for skin wound and sacral dermatitis \-- Primary team to continue workup and management of hypertension, anemia, and other ongoing issues Plan discussed with: Other Dietary Evaluation Review Comments: 1) Initiate Nepro tid 2) Initiate Nephro-Conner @ 1 tb qd 3) Encourage optimal PO intake 4) Follow-up with nephrology 5) Continue to monitor I&O, labs, and skin integrity Expected Outcomes/Goals: 1) appetite and labs to improve 2) f/u in 3-5 days DAVE ELDRIDGE MD May 07, 2025 19:27
--- NOTE | 2025-05-07 23:55 | DVHPN2 ---
Progress Note - Dictate Date Seen: May 07, 2025 Has the PT tested + for MRSA If YES, has PT been informed?: No Medical Necessity Reason Pt with a Central, PICC or Fol: Yes The following are medically ne: Riley Catheter Reason for riley catheter: Bladder Retention/Obstruc Subjective Patient was seen and evaluated in follow up. MRI brain revealed acute infarcts in the right occipital lobe and right cerebellum. No midline shift or mass effect. HGB 7.9, HCT 23.3, BUN 110, HOME IMPROVEMENT ADVISOR 7.23, CA 6.1. Patient is planned for transfer to [facility] this afternoon. Patient is cardiac stable for discharge. Telemetry reviewed. vital signs Vital Sign Date Time Temp Pulse Resp B/P (MAP) Pulse Ox O2 Delivery O2 Flow Rate FiO2 05/07/25 10:00 92 05/07/25 09:00 98.7 20 92/62 (72) 95 98.7 05/07/25 08:00 Nasal Cannula* 2 28 Total Intake and Output 05/06/25 05/06/25 05/07/25 15:00 23:00 07:00 Intake Total 100 ml 1000 ml 440 ml Output Total 550 ml 500 ml Balance 100 ml 450 ml -60 ml medications Current Medications Medications Dose Ordered Sig/Breanne Route Start Time Stop Time Status Last Admin Dose Admin Nitroglycerin 0.4 mg Q5MINP PRN SL 04/29/25 21:45 Morphine Sulfate 2 mg Q30M PRN IV 04/29/25 21:45 05/01/25 05:33 2 MG Norepinephrine Bitartrate 250 ml @ 3.75 mls/hr Q24H IV 04/30/25 04:00 Hold 05/02/25 16:51 3.75 MLS/HR Ondansetron HCl 4 mg Q6HPRN PRN IV 05/01/25 10:15 Nystatin 1 applic BID TOP 05/01/25 22:00 05/07/25 09:24 1 APPLIC Pantoprazole Sodium 40 mg DAILY IV 05/01/25 14:30 05/07/25 09:23 40 MG Enteral Nutritional Formula 240 ml QID PO 05/02/25 18:00 05/07/25 11:59 240 ML Epoetin Ulisses-epbx 10,000 unit TUTHSA SC 05/03/25 10:00 05/07/25 09:24 10,000 UNIT Enteral Nutritional Formula 240 ml BIDWM PO 05/04/25 18:00 05/07/25 08:00 240 ML Lorazepam 1 mg Q5MINP PRN IV 05/04/25 23:00 Lorazepam 2 mg Q1HP PRN IV 05/04/25 23:45 Morphine Sulfate 2 mg Q4HPRN PRN IV 05/05/25 02:00 05/06/25 22:43 2 MG Vancomycin HCl 0 ml @ 0 mls/hr UD IV 05/05/25 07:15 Piperacillin Sod/ Tazobactam Sod 100 ml @ 25 mls/hr Q12HR IV 05/05/25 22:00 05/07/25 09:23 25 MLS/HR Lorazepam 1 mg ONCE PRN IV 05/05/25 23:30 Aspirin 81 mg DAILY PO 05/07/25 10:00 05/07/25 12:18 81 MG objective GENERAL: Alert and oriented x 3. No acute distress. EYES: PERRL, EOMI. Anicteric. HENT: Moist mucous membranes. LUNGS: Clear to auscultation bilaterally. CARDIOVASCULAR: Regular rate and rhythm. ABDOMEN: Soft, nontender and nondistended. EXTREMITIES: No edema. NEUROLOGIC: No focal neurological deficits. SKIN: Warm, dry. laboratory and microbiology Laboratory Tests 05/07/25 05:00 Test 05/07/25 05:00 Range/Units Serum Glucose 101 74-106 mg/dL Problem List Anion gap metabolic acidosis. Hypotension. Malnourishment. Dehydration. BRIAN Hypocalcemia. Hypernatremia. Hypokalemia. HFpEF, reduced systolic EF 30%, acute. Assessment/Plan Continued all current supportive medical care. Aspirin. Nitro SL. GI prophylactics. IV antibiotics as ordered. Additional plan as per the hospital course. Dietary Evaluation Review Comments: 1) Initiate Nepro tid 2) Initiate Nephro-Conner @ 1 tb qd 3) Encourage optimal PO intake 4) Follow-up with nephrology 5) Continue to monitor I&O, labs, and skin integrity Expected Outcomes/Goals: 1) appetite and labs to improve 2) f/u in 3-5 days Plan discussed with: Patient EDD BUITRAGO MD May 07, 2025 13:19
[2025-05-08] MEDS ORDERED: cefTRIAXone 1GM/50ML D5W 50 ML IV SCH (09:00)
--- NOTE | 2025-05-08 21:47 | DVHEEG2 ---
Neurology EEG Procedural Note Procedural Note EXAM DATE: 05/07/25 REFERRING DOCTOR: Dr. Reynoso TECHNIQUE: Eighteen channels of EEG, 2 channels of EOG, and 1 channel of EKG were recorded using the [employer] 10/20 system. CLINICAL DATA: The patient was referred for an EEG evaluation for the evidence of seizure disorder. MEDICATIONS: See chart BACKGROUND ACTIVITY: The patient is not cooperative, he was shouting, moving throughout the recording. There was significant amount of movement in the environment artifacts in the recording, the EEG appeared to be diffuse, likely theta slowing over both hemispheres ACTIVATION: Hyperventilation: Not done Photic Stimulation: Not done Sleep: Mother seen IMPRESSION: This is an inadequate, likely mildly abnormal EEG, which can be seen in mild cerebral dysfunction due to metabolic/hypoxic encephalopathy or med ication effects, please correlate clinically The EKG channel showed a regular heart rate of 126/[place] [address] GHULAM REYNOSO MD May 08, 2025 21:47
== END 2025-05-07 19:20 | DRG 871 ==
LOC: ER 17:54 → OVERFLOW 21:38 → ICU WEST 05-03 06:20 → TELE-CENTR 05-04 16:56 → CENTRAL 05-07 08:33 → TELE-CENTR 05-07 12:04
PROVIDERS: ADMIT Student in an Organized Health Care Education/Training Program; ATTEND Student in an Organized Health Care Education/Training Program
PROC: 30233N1 Transfusion of Nonautologous Red Blood Cells into Peripheral Vein, Percutaneous Approach (ICD-10-PCS; principal; 2025-04-30)
PROC: 02HV33Z Insertion of Infusion Device into Superior Vena Cava, Percutaneous Approach (ICD-10-PCS; 2025-05-01)
PROC: B548ZZA Ultrasonography of Superior Vena Cava, Guidance (ICD-10-PCS; 2025-05-01)
DX: A41.1 Sepsis due to other specified staphylococcus (principal); I50.41 Acute combined systolic (congestive) and diastolic (congestive) heart failure; I63.9 Cerebral infarction, unspecified; N17.0 Acute kidney failure with tubular necrosis; R65.21 Severe sepsis with septic shock; J18.9 Pneumonia, unspecified organism; E87.0 Hyperosmolality and hypernatremia; E87.20 Acidosis, unspecified; E46 Unspecified protein-calorie malnutrition; R45.851 Suicidal ideations; I13.0 Hypertensive heart and chronic kidney disease with heart failure and stage 1 through stage 4 chronic kidney disease, or unspecified chronic kidney disease; E87.6 Hypokalemia; E83.51 Hypocalcemia; E86.0 Dehydration; M41.9 Scoliosis, unspecified; N20.0 Calculus of kidney; E83.42 Hypomagnesemia; D64.9 Anemia, unspecified; K80.20 Calculus of gallbladder without cholecystitis without obstruction; N18.9 Chronic kidney disease, unspecified; L30.9 Dermatitis, unspecified; G89.4 Chronic pain syndrome; R56.9 Unspecified convulsions; Z79.4 Long term (current) use of insulin; Z79.899 Other long term (current) drug therapy; Z79.1 Long term (current) use of non-steroidal anti-inflammatories (NSAID)
CPT/HCPCS: 36415; 36556; 36600; 70450; 70551; 71045; 71250; 74176; 76775; 80048; 80053; 80061; 80074; 80076; 80202; 80307; 80320; 81001; 82010; 82306; 82310; 82330; 82805; 82962; 83540; 83550; 83605; 83690; 83735; 83970; 84100; 84484; 85025; 85610; 86850; 86900; 86901; 86920; 87040; 87077; 87081; 87186; 93005; 93306; 93886; 95819; 96365; 97110; 97163; 97530; 99291; G0378; J2185; J2405; J2470; J2543; J3480; J7060